=== PATIENT | female | born 1975 | race African-American/Black ===

== ENCOUNTER 2016-09-23 11:33 | Emergency (ER) | payer BC, MEDICAID, OTHER ==
[~2016-09-23 11:33] MED LIST: IBUP200C PO; SERO200T PO; SERO400T PO; TENE1TAB PO; TRAZ50TA2 PO; VIST50CA PO; ZOLO100T PO; ZOLO50TA PO; no home medications
[2016-09-23] MEDS ORDERED: ONDANSETRON 4 MG ORAL DISINTEGRATING TAB (S0181) As Ordered ONE (11:56)
[2016-09-23] MEDS ORDERED: ACETAMINOPHEN 325 MG TAB As Ordered ONE (11:56)
--- NOTE | 2016-09-23 12:48 | EDDOCDS ---
Physician Documentation [facility] Name: Francine Zamora Age: 41 yrs Sex: Female : 1975 Arrival Date: 09/23/2016 Time: 11:33 Bed TR2 Private MD: KIRK ROBERTSON Disposition: 09/23/16 12:46 Patient has left against medical advice. - Patients states they are going to Home/Self Care. - Condition is Stable. Medication Reconciliation, Local Pharmacy Hours form. Follow up: Private Physician; When: As needed; Reason: Recheck today's complaints. Historical: - Allergies: no known allergies; - Home Meds: 1. none - PMHx: Anxiety; Bipolar disorder; Depression; - PSHx: Tubal ligation; left leg; eye surgery; - Immunization history: Last tetanus immunization: < 5 years ago. - Social history: Smoking status: Patient uses tobacco products, heavy tobacco smoker. No barriers to communication noted, The patient speaks fluent Kiswahili, Speaks appropriately for age. - Family history: Not pertinent. - : The pt / caregiver states he / she is not on anticoagulants. Home medication list is obtained from the patient. - Exposure Risk Screening:: None identified. 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 7 in. (170.18 cm); 11:34 Body Mass Index 31.32 (90.72 kg, 170.18 cm) elp Trauma Score (Adult): 11:40 Eye Response: spontaneous(1); Verbal Response: oriented(1); Motor Response: obeys mlb1 commands(2); Systolic BP: > 89 mm Hg(4); Respiratory Rate: 10 to 29 per min(4); Demetria Score: 15; Trauma Score: 12 MDM: 11:54 Acetaminophen Tablet 975 mg PO once ordered. ar2 11:54 Ondansetron ODT Oral Disintegrating Tablet 4 mg PO once ordered. ar2 11:55 CT Spine,Cervical W/o Contrast Ordered. EDMS 11:57 Financial registration complete. mm15 12:09 [facility] Payment Agreement was scanned into [employer] and attached to record. mm15 12:10 [facility] was scanned into [employer] and attached to record. mm15 Administered Medications: 11:58 Drug: Acetaminophen 975 mg [acetaminophen 325 mg tablet (3 tabs)] Route: PO; ck1 11:58 Drug: Ondansetron ODT 4 mg [ondansetron 4 mg disintegrating tablet (1 tabs)] Route: PO; ck1 Signatures: Dispatcher [employer] EDNicolas Constantino RN RN mlb1 Jenny Quevedo RN RN ck1 Lan Alarcon PA-C PA-C ar2 Mari Hernandez mm15 The chart was reviewed and I authenticate all verbal orders and agree with the evaluation and treatment provided.Attachments: 12:09 [facility] Payment Agreement mm15 MTDD
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
--- NOTE | 2016-09-25 13:47 | EDDOCDS ---
Physician Documentation [facility] Name: Francine Zamora Age: 41 yrs Sex: Female : 1975 Arrival Date: 09/23/2016 Time: 11:33 Bed TR2 Private MD: KIRK ROBERTSON Disposition: 09/23/16 12:46 Patient has left against medical advice. - Patients states they are going to Home/Self Care. - Condition is Stable. Medication Reconciliation, Local Pharmacy Hours form. Follow up: Private Physician; When: As needed; Reason: Recheck today's complaints. Historical: - Allergies: no known allergies; - Home Meds: 1. none - PMHx: Anxiety; Bipolar disorder; Depression; - PSHx: Tubal ligation; left leg; eye surgery; - Immunization history: Last tetanus immunization: < 5 years ago. - Social history: Smoking status: Patient uses tobacco products, heavy tobacco smoker. No barriers to communication noted, The patient speaks fluent Pashto, Speaks appropriately for age. - Family history: Not pertinent. - : The pt / caregiver states he / she is not on anticoagulants. Home medication list is obtained from the patient. - Exposure Risk Screening:: None identified. 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 7 in. (170.18 cm); 11:34 Body Mass Index 31.32 (90.72 kg, 170.18 cm) elp Trauma Score (Adult): 11:40 Eye Response: spontaneous(1); Verbal Response: oriented(1); Motor Response: obeys mlb1 commands(2); Systolic BP: > 89 mm Hg(4); Respiratory Rate: 10 to 29 per min(4); Demetria Score: 15; Trauma Score: 12 MDM: 11:54 Acetaminophen Tablet 975 mg PO once ordered. ar2 11:54 Ondansetron ODT Oral Disintegrating Tablet 4 mg PO once ordered. ar2 11:55 CT Spine,Cervical W/o Contrast Ordered. EDMS 11:57 Financial registration complete. mm15 12:09 [facility] Payment Agreement was scanned into MEDHOST and attached to record. mm15 12:10 [facility] was scanned into [employer] and attached to record. mm15 17:03 T-Sheet-- Draft Copy was scanned into [employer] and attached to record. klr 09/24 17:39 Refusal of Services was scanned into [employer] and attached to record. kf3 Administered Medications: 09/23 11:58 Drug: Acetaminophen 975 mg [acetaminophen 325 mg tablet (3 tabs)] Route: PO; ck1 11:58 Drug: Ondansetron ODT 4 mg [ondansetron 4 mg disintegrating tablet (1 tabs)] Route: PO; ck1 Signatures: Dispatcher [employer] EDMS Nicolas Cheema RN RN mlb1 Jenny Quevedo RN RN ck1 Alek Haider, Reg Reg kf3 Lan Alarcon PAYarelis PAYarelis ar2 Mari Hernandez mm15 Marcia Wilkerson klnash The chart was reviewed and I authenticate all verbal orders and agree with the evaluation and treatment provided.Attachments: 12:09 [facility] Payment Agreement mm15 17:03 T-Sheet-- Draft Copy klr Chart Complete MTDD
--- NOTE | 2016-09-25 13:47 | EDDOCDS ---
Physician Documentation [facility] Name: Francine Zamora Age: 41 yrs Sex: Female : 1975 Arrival Date: 09/23/2016 Time: 11:33 Bed TR2 Private MD: KIRK ROBERTSON Disposition: 09/23/16 12:46 Patient has left against medical advice. - Patients states they are going to Home/Self Care. - Condition is Stable. Medication Reconciliation, Local Pharmacy Hours form. Follow up: Private Physician; When: As needed; Reason: Recheck today's complaints. Historical: - Allergies: no known allergies; - Home Meds: 1. none - PMHx: Anxiety; Bipolar disorder; Depression; - PSHx: Tubal ligation; left leg; eye surgery; - Immunization history: Last tetanus immunization: < 5 years ago. - Social history: Smoking status: Patient uses tobacco products, heavy tobacco smoker. No barriers to communication noted, The patient speaks fluent Khmer, Speaks appropriately for age. - Family history: Not pertinent. - : The pt / caregiver states he / she is not on anticoagulants. Home medication list is obtained from the patient. - Exposure Risk Screening:: None identified. 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 7 in. (170.18 cm); 11:34 Body Mass Index 31.32 (90.72 kg, 170.18 cm) elp Trauma Score (Adult): 11:40 Eye Response: spontaneous(1); Verbal Response: oriented(1); Motor Response: obeys mlb1 commands(2); Systolic BP: > 89 mm Hg(4); Respiratory Rate: 10 to 29 per min(4); Demetria Score: 15; Trauma Score: 12 MDM: 11:54 Acetaminophen Tablet 975 mg PO once ordered. ar2 11:54 Ondansetron ODT Oral Disintegrating Tablet 4 mg PO once ordered. ar2 11:55 CT Spine,Cervical W/o Contrast Ordered. EDMS 11:57 Financial registration complete. mm15 12:09 [facility] Payment Agreement was scanned into MEDHOST and attached to record. mm15 12:10 [facility] [place] [facility] was scanned into [employer] and attached to record. mm15 17:03 T-Sheet-- Draft Copy was scanned into [employer] and attached to record. klr 09/24 17:39 Refusal of Services was scanned into [employer] and attached to record. kf3 Administered Medications: 09/23 11:58 Drug: Acetaminophen 975 mg [acetaminophen 325 mg tablet (3 tabs)] Route: PO; ck1 11:58 Drug: Ondansetron ODT 4 mg [ondansetron 4 mg disintegrating tablet (1 tabs)] Route: PO; ck1 Signatures: Dispatcher [employer] EDMS Nicolas Cheema RN RN mlb1 Jenny Quevedo RN RN ck1 Alek Haider, Reg Reg kf3 Lan Alarcon PAYarelis PAYarelis ar2 Mari Hernandez mm15 Marcia Wilkerson klnash The chart was reviewed and I authenticate all verbal orders and agree with the evaluation and treatment provided.Attachments: 12:09 [facility] Payment Agreement mm15 17:03 T-Sheet-- Draft Copy klr Chart Complete MTDD
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
== END 2016-09-23 12:46 | disposition left against medical advice (07) ==
LOC: M ED 11:33
DX: S19.9XXA Unspecified injury of neck, initial encounter (principal); V49.40XA Driver injured in collision with unspecified motor vehicles in traffic accident, initial encounter; Y92.410 Unspecified street and highway as the place of occurrence of the external cause; Y93.89 Activity, other specified; Y99.8 Other external cause status; F31.9 Bipolar disorder, unspecified; F17.210 Nicotine dependence, cigarettes, uncomplicated

== ENCOUNTER → 2017-08-16 | Outpatient (CLI) | payer OTHER ==
[2017-08-16 07:15] LABS: BASO % 0.3 % (0.0-1.0); EOS # 0.5 10^3/uL (0.0-0.50); EOS % 8.5 % (0.0-3.0); HEMATOCRIT 34.6 % (36.0-47.0); HEMOGLOBIN 11.2 g/dl (12.0-16.0); IMMATURE GRANULOCYTE % 0.3 % (0-0); LYMPH # 2.3 10^3/uL (1.5-4.5); LYMPH % 37.2 % (24.0-44.0); MEAN CORPUSCULAR HEMOGLOBIN 29.1 pg (27.0-33.0); MEAN CORPUSCULAR HGB CONC 32.4 g/dl (32.0-36.5); MEAN CORPUSCULAR VOLUME 89.9 fl (80.0-96.0); MONO # 0.4 10^3/uL (0.0-0.8); MONO % 5.9 % (0.0-5.0); NEUTROPHILS # 2.9 10^3/uL (1.8-7.7); NEUTROPHILS % 47.8 % (36.0-66.0); PLATELET COUNT, AUTOMATED 329 10^3/uL (150-450); RED BLOOD COUNT 3.85 10^6/uL (4.00-5.40); RED CELL DISTRIBUTION WIDTH 13.2 % (11.5-14.5); WHITE BLOOD COUNT 6.1 10^3/uL (4.0-10.0)
[2017-08-16 07:34] LABS: ESTIMATED AVERAGE GLUCOSE 108 MG/DL (60-110); HEMOGLOBIN A1c 5.4 %
[2017-08-16 07:48] LABS: ALBUMIN 3.6 GM/DL (3.2-5.2); ALBUMIN/GLOBULIN RATIO 1.03 (1.00-1.93); ALKALINE PHOSPHATASE 61 U/L (45-117); ALT/SGPT 14 U/L (12-78); ANION GAP 7 MEQ/L (8-16); AST/SGOT 13 U/L (7-37); BILIRUBIN,TOTAL 0.4 MG/DL (0.2-1.0); BLOOD UREA NITROGEN 12 MG/DL (7-18); CALCIUM LEVEL 8.8 MG/DL (8.5-10.1); CARBON DIOXIDE LEVEL 27 MEQ/L (21-32); CHLORIDE LEVEL 107 MEQ/L (98-107); CHOLESTEROL LEVEL 185 MG/DL (<200); CHOLESTEROL RISK RATIO 4.204 (<5); CREATININE FOR GFR 0.94 MG/DL (0.55-1.02); GLOMERULAR FILTRATION RATE > 60.0 (>58); GLUCOSE, FASTING 104 MG/DL (70-105); HDL CHOLESTEROL 44 MG/DL (>40); NON-HDL-C 141 MG/DL; POTASSIUM SERUM 4.7 MEQ/L (3.5-5.1); SODIUM LEVEL 141 MEQ/L (136-145); THYROID STIMULATING HORMONE 0.942 uIU/ML (0.358-3.740); TOTAL PROTEIN 7.1 GM/DL (6.4-8.2); TRIGLYCERIDES LEVEL 150 MG/DL (<150)
[2017-08-16 09:18] LABS: PROLACTIN 11.6 NG/ML
== END ==
LOC: M LAB 06:32
DX: Z13.9 Encounter for screening, unspecified (principal); N64.52 Nipple discharge
CPT/HCPCS: 84146

== ENCOUNTER → 2017-09-07 | Outpatient (CLI) | payer OTHER | LOC: M RAD 10:08 | DX: N64.52 Nipple discharge (principal); N64.4 Mastodynia | CPT/HCPCS: 77066 ==

== ENCOUNTER 2018-01-10 17:06 | Emergency (ER) | payer OTHER ==
[2018-01-10] MEDS: LORazepam 2 MG/ML VIAL (J2060) IV (17:50)
[2018-01-10] MEDS: NS 1,000 ML IV (17:50)
[2018-01-10 17:51] LABS: BASO % 0.2 % (0.0-1.0); EOS # 0.2 10^3/uL (0.0-0.50); EOS % 2.8 % (0.0-3.0); HEMATOCRIT 34.1 % (36.0-47.0); HEMOGLOBIN 11.2 g/dl (12.0-15.5); IMMATURE GRANULOCYTE % 0.3 % (0-3.0); LYMPH # 2.1 10^3/uL (1.5-4.5); LYMPH % 34.2 % (24.0-44.0); MEAN CORPUSCULAR HGB CONC 32.8 g/dl (32.0-36.5); MEAN CORPUSCULAR VOLUME 88.3 fl (80.0-96.0); MONO # 0.4 10^3/uL (0.0-0.8); MONO % 6.9 % (0.0-5.0); NEUTROPHILS # 3.4 10^3/uL (1.8-7.7); NEUTROPHILS % 55.6 % (36.0-66.0); PLATELET COUNT, AUTOMATED 295 10^3/uL (150-450); RED BLOOD COUNT 3.86 10^6/uL (4.00-5.40); RED CELL DISTRIBUTION WIDTH 13.2 % (11.5-14.5); WHITE BLOOD COUNT 6.1 10^3/uL (4.0-10.0)
[2018-01-10 18:06] LABS: INR 0.95; PROTHROMBIN TIME 12.8 SECONDS (12.4-14.5)
[2018-01-10 18:21] LABS: ALBUMIN 3.8 GM/DL (3.2-5.2); ALKALINE PHOSPHATASE 64 U/L (45-117); ALT/SGPT 18 U/L (12-78); ANION GAP 9 MEQ/L (8-16); AST/SGOT 16 U/L (7-37); BILIRUBIN,DIRECT 0.2 MG/DL (0.0-0.2); BILIRUBIN,TOTAL 0.6 MG/DL (0.2-1.0); BLOOD UREA NITROGEN 8 MG/DL (7-18); CALCIUM LEVEL 8.6 MG/DL (8.5-10.1); CARBON DIOXIDE LEVEL 22 MEQ/L (21-32); CHLORIDE LEVEL 107 MEQ/L (98-107); CK-MB VALUE MASS 1.3 NG/ML (<3.6); CPK CREATINE PHOSPHOKINASE 390 U/L (26-192); CREATININE FOR GFR 0.97 MG/DL (0.55-1.30); GLOMERULAR FILTRATION RATE > 60.0 (>58); GLUCOSE, FASTING 102 MG/DL (70-100); MB/CK RELATIVE INDEX 0.33 (< OR =4); POTASSIUM SERUM 3.6 MEQ/L (3.5-5.1); SODIUM LEVEL 138 MEQ/L (136-145); TOTAL PROTEIN 7.6 GM/DL (6.4-8.2); TROPONIN I < 0.02 NG/ML (< 0.10)
[2018-01-10 18:31] LABS: CONTROL LINE HCG INT CTR LINE PRESENT; HCG, SERUM QUALITATIVE NEGATIVE (NEGATIVE)
== END 2018-01-10 19:10 | disposition home or self-care (01) ==
LOC: M ED 17:06
DX: F41.9 Anxiety disorder, unspecified (principal); F45.8 Other somatoform disorders; Z79.899 Other long term (current) drug therapy; Z88.8 Allergy status to other drugs, medicaments and biological substances
CPT/HCPCS: J2060

== ENCOUNTER → 2018-03-23 | Outpatient (REF) | payer BC, MEDICAID ==
[2018-03-23 22:26] LABS: CHLAMYDIA DNA AMPLIFICATION NEGATIVE (NEGATIVE); GC DNA AMPLIFICATION NEGATIVE (NEGATIVE)
== END ==
LOC: M SFHCLERA 10:16
DX: R30.0 Dysuria (principal)
CPT/HCPCS: 87086

== ENCOUNTER → 2018-04-04 | Outpatient (REF) | payer OTHER, MEDICAID | LOC: M SFHCLERA 11:54 | DX: R30.0 Dysuria (principal) ==

== ENCOUNTER → 2018-06-13 | Outpatient (REF) | payer OTHER, MEDICAID ==
[2018-06-14 09:40] LABS: RUBELLA IgG QUALITATIVE IMMUNE (IMMUNE)
[2018-06-15 08:06] LABS: HEPATITIS A IgG TOTAL Negative (Negative); MUMPS VIRUS IgG ANTIBODY <9.0 AU/mL (Immune >10.9); RUBEOLA IgG ANTIBODY 63.1 AU/mL (Immune >29.9)
[2018-06-15 08:06] LABS: HERPES ZOSTER, VARICELLA IgG 2213 index (Immune >165)
== END ==
LOC: M LAB REF 16:46
DX: Z01.84 Encounter for antibody response examination (principal)

== ENCOUNTER → 2018-06-20 | Outpatient (REF) | payer OTHER, MEDICAID ==
[2018-06-21 11:12] LABS: HEPATITIS B SURFACE ANTIGEN NEGATIVE (NEGATIVE)
[2018-06-21 11:12] LABS: HEPATITIS B SURFACE ANTIBODY POSITIVE (POSITIVE)
== END ==
LOC: M LAB REF 16:54
DX: Z01.84 Encounter for antibody response examination (principal)
CPT/HCPCS: 86706

== ENCOUNTER → 2018-06-24 | Outpatient (REF) ==
[2018-06-27 00:07] LABS: QuantiFERON-TB Gold Plus Negative (Negative)
== END ==
LOC: M LAB 09:52
DX: Z00.00 Encounter for general adult medical examination without abnormal findings (principal)

== ENCOUNTER 2018-07-31 17:28 | Emergency (ER) | payer OTHER, MEDICAID ==
[2018-07-31 18:21] LABS: BASO % 0.2 % (0.0-1.0); EOS # 0.2 10^3/uL (0.0-0.50); EOS % 3.2 % (0.0-3.0); HEMATOCRIT 32.9 % (36.0-47.0); HEMOGLOBIN 10.6 g/dl (12.0-15.5); IMMATURE GRANULOCYTE % 0.2 % (0-3.0); LYMPH # 2.5 10^3/uL (1.5-4.5); LYMPH % 42.4 % (24.0-44.0); MEAN CORPUSCULAR HEMOGLOBIN 29.5 pg (27.0-33.0); MEAN CORPUSCULAR HGB CONC 32.2 g/dl (32.0-36.5); MEAN CORPUSCULAR VOLUME 91.6 fl (80.0-96.0); MONO # 0.3 10^3/uL (0.0-0.8); MONO % 4.5 % (0.0-5.0); NEUTROPHILS # 2.9 10^3/uL (1.8-7.7); NEUTROPHILS % 49.5 % (36.0-66.0); PLATELET COUNT, AUTOMATED 252 10^3/uL (150-450); RED BLOOD COUNT 3.59 10^6/uL (4.00-5.40); RED CELL DISTRIBUTION WIDTH 12.5 % (11.5-14.5); WHITE BLOOD COUNT 5.9 10^3/uL (4.0-10.0)
[2018-07-31 18:44] LABS: ERYTHROCYTE SEDIMENTATION RATE 31 mm/hr (0-20)
[2018-07-31 18:51] LABS: ANION GAP 5 MEQ/L (8-16); BLOOD UREA NITROGEN 9 MG/DL (7-18); C REACTIVE PROTEIN QUANTITATIV < 0.30 MG/DL (0.00-0.30); CALCIUM LEVEL 8.5 MG/DL (8.5-10.1); CARBON DIOXIDE LEVEL 27 MEQ/L (21-32); CHLORIDE LEVEL 107 MEQ/L (98-107); CK-MB VALUE MASS < 1.0 NG/ML (<3.6); CPK CREATINE PHOSPHOKINASE 216 U/L (26-192); CREATININE FOR GFR 0.97 MG/DL (0.55-1.30); GLOMERULAR FILTRATION RATE > 60.0 (>58); GLUCOSE, FASTING 101 MG/DL (70-100); MB/CK RELATIVE INDEX 0.46 (< OR =4); POTASSIUM SERUM 3.9 MEQ/L (3.5-5.1); SODIUM LEVEL 139 MEQ/L (136-145); TROPONIN I < 0.02 NG/ML (< 0.10)
[2018-07-31] MEDS: CLINDAMYCIN 150 MG CAP PO (21:00)
== END 2018-07-31 21:15 | disposition home or self-care (01) ==
LOC: M ED 17:28
DX: N64.4 Mastodynia (principal); N64.52 Nipple discharge; R06.02 Shortness of breath; R11.0 Nausea; I10 Essential (primary) hypertension; F41.9 Anxiety disorder, unspecified; F31.9 Bipolar disorder, unspecified; F17.200 Nicotine dependence, unspecified, uncomplicated; Z88.8 Allergy status to other drugs, medicaments and biological substances; Z79.899 Other long term (current) drug therapy
CPT/HCPCS: 76642

== ENCOUNTER 2018-09-07 20:13 | Emergency (ER) | payer BC, OTHER ==
[~2018-09-07] VITALS: Ht 170.2 cm; Wt 99.5 kg
[~2018-09-07 20:13] MED LIST changes: +BENZ-18 PO; +CLEO300C2 PO; -IBUP200C PO; +IBUP200C25 PO; +KETO10TAB PO; +PROZ10CA7 PO; +TRAZ-160 PO; +TYLE325T5 PO
[2018-09-07 21:00] LABS: HEMATOCRIT 38.2 % (36.0-47.0); HEMOGLOBIN 12.2 g/dl (12.0-15.5); MEAN CORPUSCULAR HEMOGLOBIN 29.8 pg (27.0-33.0); MEAN CORPUSCULAR HGB CONC 31.9 g/dl (32.0-36.5); MEAN CORPUSCULAR VOLUME 93.2 fl (80.0-96.0); PLATELET COUNT, AUTOMATED 271 10^3/uL (150-450); WHITE BLOOD COUNT 4.8 10^3/uL (4.0-10.0)
[2018-09-07] MEDS ORDERED: ONDANSETRON 4 MG TAB (S0181) PO ONE (21:00)
[2018-09-07] MEDS ORDERED: ONDANSETRON 4 MG TAB (S0181) As Ordered ONE (21:04)
[2018-09-07 21:32] LABS: ACETAMINOPHEN LEVEL < 2.0 UG/ML (10.0-30.0); ALBUMIN 3.9 GM/DL (3.2-5.2); ALT/SGPT 13 U/L (12-78); BILIRUBIN,DIRECT 0.1 MG/DL (0.0-0.2); BILIRUBIN,TOTAL 0.5 MG/DL (0.2-1.0); BLOOD UREA NITROGEN 13 MG/DL (7-18); CALCIUM LEVEL 8.3 MG/DL (8.5-10.1); CARBON DIOXIDE LEVEL 21 MEQ/L (21-32); CHLORIDE LEVEL 108 MEQ/L (98-107); CREATININE FOR GFR 1.11 MG/DL (0.55-1.30); ETHYL ALCOHOL (ETHANOL) < 0.003 % (0.000-0.010); GLOMERULAR FILTRATION RATE > 60.0 (>58); GLUCOSE, FASTING 142 MG/DL (70-100); POTASSIUM SERUM 3.7 MEQ/L (3.5-5.1); SALICYLATE LEVEL < 1.7 MG/DL (5.0-30.0); SODIUM LEVEL 141 MEQ/L (136-145); TOTAL PROTEIN 7.6 GM/DL (6.4-8.2)
[2018-09-07 22:22] LABS: INR 1.01; PROTHROMBIN TIME 13.4 SECONDS (12.1-14.4)
[2018-09-07 22:23] LABS: APPEARANCE, URINE HAZY (CLEAR); BACTERIA, URINE AUTO NEGATIVE (NEGATIVE); BILIRUBIN, URINE AUTO NEGATIVE (NEGATIVE); BLOOD, URINE BLOOD NEGATIVE (NEGATIVE); COLOR, URINE YELLOW (YELLOW); GLUCOSE, URINE (UA) AUTO NEGATIVE (NEGATIVE); KETONE, URINE AUTO NEGATIVE (NEGATIVE); LEUKOCYTE ESTERASE, URINE AUTO NEGATIVE (NEGATIVE); MUCUS, URINE SMALL (NEGATIVE); NITRITE, URINE AUTO NEGATIVE (NEGATIVE); PARTIAL THROMBOPLASTIN TIME 28.6 SECONDS (25.4-37.6); PROTEIN, URINE AUTO 2+ mg/dL (NEGATIVE); RBC, URINE AUTO 7 /HPF (0-3); SPECIFIC GRAVITY URINE AUTO 1.026 (1.002-1.035); SQUAMOUS EPITHELIAL CELL UR AU 0 /HPF (0-6); WBC, URINE AUTO 2 /HPF (0-3)
[2018-09-07 22:28] LABS: AMPHETAMINES LEVEL URINE NEGATIVE (NEGATIVE); BARBITURATES URINE NEGATIVE (NEGATIVE); BENZODIAZEPINES URINE NEGATIVE (NEGATIVE); CANNABINOIDS URINE NEGATIVE (NEGATIVE); COCAINE METABOLITE URINE NEGATIVE (NEGATIVE); METHADONE URINE NEGATIVE (NEGATIVE); OPIATES URINE NEGATIVE (NEGATIVE); PHENCYCLIDINE URINE NEGATIVE (NEGATIVE)
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
[2018-09-07 22:40] LABS: HCG, SERUM QUALITATIVE NEGATIVE (NEGATIVE)
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
[2018-09-08] MEDS ORDERED: IBUPROFEN 800 MG TAB PO ONE (00:45)
[2018-09-08] MEDS ORDERED: traZODone 50 MG TAB PO ONE (02:15)
[2018-09-08] MEDS ORDERED: LORazepam 2 MG/ML VIAL (J2060) IM STA (02:37)
[2018-09-08 08:43] VITALS: BP 94/50
== END 2018-09-08 08:46 ==
LOC: M ED 20:13
DX: T14.91XA Suicide attempt, initial encounter (principal); V89.2XXA Person injured in unspecified motor-vehicle accident, traffic, initial encounter; Y92.410 Unspecified street and highway as the place of occurrence of the external cause; R45.851 Suicidal ideations; F31.9 Bipolar disorder, unspecified; Z88.8 Allergy status to other drugs, medicaments and biological substances; Z79.899 Other long term (current) drug therapy
CPT/HCPCS: 36415; 70450; 72125; 80048; 80076; 80307; 84443; 84703; 85027; 85610; 85730; 94760; 96372; 99285; G0480; J2060

== ENCOUNTER → 2018-10-15 | Outpatient (REF) | payer OTHER, MEDICAID ==
[2018-10-15 13:34] LABS: BASO % 0.3 % (0.0-1.0); EOS # 0.2 10^3/uL (0.0-0.50); EOS % 2.6 % (0.0-3.0); HEMATOCRIT 36.5 % (36.0-47.0); HEMOGLOBIN 11.6 g/dl (12.0-15.5); LYMPH # 2.2 10^3/uL (1.5-4.5); MEAN CORPUSCULAR HEMOGLOBIN 29.3 pg (27.0-33.0); MEAN CORPUSCULAR HGB CONC 31.8 g/dl (32.0-36.5); MEAN CORPUSCULAR VOLUME 92.2 fl (80.0-96.0); MONO # 0.3 10^3/uL (0.0-0.8); MONO % 5.5 % (0.0-5.0); NEUTROPHILS # 3.5 10^3/uL (1.8-7.7); NEUTROPHILS % 56.3 % (36.0-66.0); PLATELET COUNT, AUTOMATED 288 10^3/uL (150-450); RED BLOOD COUNT 3.96 10^6/uL (4.00-5.40); WHITE BLOOD COUNT 6.2 10^3/uL (4.0-10.0)
[2018-10-15 13:35] LABS: APPEARANCE, URINE CLEAR (CLEAR); BACTERIA, URINE AUTO NEGATIVE (NEGATIVE); BILIRUBIN, URINE AUTO NEGATIVE (NEGATIVE); BLOOD, URINE BLOOD NEGATIVE (NEGATIVE); COLOR, URINE YELLOW (YELLOW); GLUCOSE, URINE (UA) AUTO NEGATIVE (NEGATIVE); KETONE, URINE AUTO NEGATIVE (NEGATIVE); LEUKOCYTE ESTERASE, URINE AUTO NEGATIVE (NEGATIVE); MUCUS, URINE SMALL (NEGATIVE); NITRITE, URINE AUTO NEGATIVE (NEGATIVE); PROTEIN, URINE AUTO NEGATIVE (NEGATIVE); RBC, URINE AUTO 2 /HPF (0-3); SPECIFIC GRAVITY URINE AUTO 1.019 (1.002-1.035); SQUAMOUS EPITHELIAL CELL UR AU 1 /HPF (0-6); UROBILINOGEN, URINE AUTO 0.2 mg/dL (0.0-2.0); WBC, URINE AUTO 1 /HPF (0-3)
[2018-10-15 14:07] LABS: ALBUMIN 3.6 GM/DL (3.2-5.2); ALT/SGPT 14 U/L (12-78); BILIRUBIN,TOTAL 0.5 MG/DL (0.2-1.0); BLOOD UREA NITROGEN 10 MG/DL (7-18); CALCIUM LEVEL 8.3 MG/DL (8.5-10.1); CARBON DIOXIDE LEVEL 25 MEQ/L (21-32); CHLORIDE LEVEL 106 MEQ/L (98-107); CHOLESTEROL LEVEL 152 MG/DL (<200); CHOLESTEROL RISK RATIO 3.304 (<5); CREATININE FOR GFR 0.95 MG/DL (0.55-1.30); FREE T4 1.09 NG/DL (0.76-1.46); GLOMERULAR FILTRATION RATE > 60.0 (>58); GLUCOSE, FASTING 97 MG/DL (70-100); HDL CHOLESTEROL 46 MG/DL (>40); LDL CHOLESTEROL 87 MG/DL (<100); NON-HDL-C 106 MG/DL; POTASSIUM SERUM 4.3 MEQ/L (3.5-5.1); SODIUM LEVEL 138 MEQ/L (136-145); TOTAL 25(OH) VITAMIN D 9.2 NG/ML (30.0-100.0); TOTAL PROTEIN 7.1 GM/DL (6.4-8.2); TRIGLYCERIDES LEVEL 93 MG/DL (<150)
[2018-10-15 15:20] LABS: HEMOGLOBIN A1c 5.1 %
[2018-10-17 00:06] LABS: Lyme Disease IgG/IgM Antibodie <0.91 ISR (0.00-0.90); Lyme Disease IgM Ab Quantitati <0.80 index (0.00-0.79)
== END ==
LOC: M LAB REF 12:29
DX: Z00.01 Encounter for general adult medical examination with abnormal findings (principal); Z13.228 Encounter for screening for other metabolic disorders

== ENCOUNTER → 2018-10-31 | Outpatient (REF) | payer OTHER, MEDICAID | LOC: M LAB REF 15:06 | PROVIDERS: ATTEND Surgery | DX: D23.71 Other benign neoplasm of skin of right lower limb, including hip (principal) ==

== ENCOUNTER → 2018-11-12 | Outpatient (REF) | payer MEDICAID | LOC: M SFHCLERA 12:17 | PROVIDERS: ATTEND Physician Assistant | DX: J02.9 Acute pharyngitis, unspecified (principal) ==

== ENCOUNTER 2019-02-20 06:50 | Emergency (ER) | payer BC, MEDICAID ==
[~2019-02-20] VITALS: Ht 170.2 cm; Wt 97.5 kg
[~2019-02-20 06:50] MED LIST changes: -TRAZ-160 PO; +TRAZ-252 PO
[2019-02-20] MEDS ORDERED: ACET-683 PO (07:07)
[2019-02-20] MEDS ORDERED: IBUP1TAB6 PO (07:07)
[2019-02-20] MEDS ORDERED: ACETAMINOPHEN TAB 650MG DOSE (2X325MG) PO ONE (07:15)
[2019-02-20] MEDS ORDERED: dexameTHASONE 20 MG/5 ML VIAL (J1100) IM ONE (07:15)
[2019-02-20] MEDS ORDERED: NAPROXEN 250 MG TAB PO ONE (07:15)
[2019-02-20 08:03] VITALS: BP 121/76
== END 2019-02-20 08:07 | disposition home or self-care (01) ==
LOC: M ED 06:50
DX: J03.90 Acute tonsillitis, unspecified (principal); I10 Essential (primary) hypertension; F31.9 Bipolar disorder, unspecified
CPT/HCPCS: 87880; 96372; 99284; J1100

== ENCOUNTER → 2019-10-21 | Outpatient (REF) | payer BC ==
[~2019-10-21] MED LIST changes: +ACET-683 PO; +IBUP1TAB6 PO
[2019-10-21 13:43] LABS: BASO % 0.3 % (0.0-1.0); EOS # 0.1 10^3/uL (0.0-0.5); HEMATOCRIT 37.6 % (36.0-47.0); HEMOGLOBIN 11.9 g/dl (12.0-15.5); LYMPH # 2.4 10^3/uL (1.5-5.0); LYMPH % 36.7 % (24.0-44.0); MEAN CORPUSCULAR HEMOGLOBIN 29.2 pg (27.0-33.0); MEAN CORPUSCULAR HGB CONC 31.6 g/dl (32.0-36.5); MEAN CORPUSCULAR VOLUME 92.4 fl (80.0-96.0); MONO # 0.6 10^3/uL (0.0-0.8); MONO % 9.4 % (0.0-5.0); NEUTROPHILS # 3.4 10^3/uL (1.5-8.5); NEUTROPHILS % 51.4 % (36.0-66.0); PLATELET COUNT, AUTOMATED 298 10^3/uL (150-450); RED BLOOD COUNT 4.07 10^6/uL (4.00-5.40); WHITE BLOOD COUNT 6.5 10^3/uL (4.0-10.0)
[2019-10-21 14:06] LABS: ALBUMIN 3.7 GM/DL (3.2-5.2); ALT/SGPT 18 U/L (12-78); BILIRUBIN,TOTAL 0.6 MG/DL (0.2-1.0); BLOOD UREA NITROGEN 10 MG/DL (7-18); CALCIUM LEVEL 8.4 MG/DL (8.5-10.1); CARBON DIOXIDE LEVEL 25 MEQ/L (21-32); CHLORIDE LEVEL 105 MEQ/L (98-107); CHOLESTEROL LEVEL 194 MG/DL (<200); CREATININE FOR GFR 0.94 MG/DL (0.55-1.30); FOLATE 18.3 NG/ML; FREE T4 1.01 NG/DL (0.76-1.46); GLOMERULAR FILTRATION RATE > 60.0 (>58); GLUCOSE, FASTING 103 MG/DL (70-100); HDL CHOLESTEROL 53 MG/DL (>40); LDL CHOLESTEROL 110 MG/DL (<100); NON-HDL-C 141 MG/DL; POTASSIUM SERUM 3.9 MEQ/L (3.5-5.1); SODIUM LEVEL 136 MEQ/L (136-145); TOTAL 25(OH) VITAMIN D 9.5 NG/ML (30.0-100.0); TRIGLYCERIDES LEVEL 156 MG/DL (<150); VITAMIN B12 LEVEL 766 PG/ML
[2019-10-21 19:46] LABS: HEMOGLOBIN A1c 5.1 %
== END ==
LOC: M LAB REF 12:06
PROVIDERS: ATTEND Nurse Practitioner Family
DX: E55.9 Vitamin D deficiency, unspecified (principal); E66.9 Obesity, unspecified; M54.89 Other dorsalgia; F17.200 Nicotine dependence, unspecified, uncomplicated; I10 Essential (primary) hypertension

== ENCOUNTER → 2020-01-19 | Outpatient (REF) | payer BC ==
[2020-01-19 14:39] LABS: BLOOD UREA NITROGEN 7 MG/DL (7-18); CALCIUM LEVEL 8.8 MG/DL (8.5-10.1); CARBON DIOXIDE LEVEL 26 MEQ/L (21-32); CHLORIDE LEVEL 106 MEQ/L (98-107); CREATININE FOR GFR 0.95 MG/DL (0.55-1.30); GLOMERULAR FILTRATION RATE > 60.0 (>58); GLUCOSE, FASTING 93 MG/DL (70-100); POTASSIUM SERUM 4.2 MEQ/L (3.5-5.1); SODIUM LEVEL 137 MEQ/L (136-145)
[2020-01-19 14:40] LABS: PROLACTIN 16.5 NG/ML
== END ==
LOC: M PLALAB 09:40
PROVIDERS: ATTEND Surgery
DX: N64.4 Mastodynia (principal); N64.52 Nipple discharge

== ENCOUNTER → 2020-01-19 | Outpatient (CLI) | payer BC ==
--- NOTE | 2020-01-19 15:06 | REP ---
BILATERAL MAMMOGRAM WITH 3D TOMOSYNTHESIS AND DIAGNOSTIC MAMMOGRAM AND BILATERAL BREAST ULTRASOUND: HISTORY: Clear bilateral breast nipple discharge for 4 years. Pain left breast one to two months. No family history of breast cancer. Tyrer-Cuzick lifetime risk of breast cancer 10.3%. MLO and CC views of both breasts performed with 3D tomosynthesis. Comparison made with prior study of 09/07/2017. There is no significant change when compared to that prior study. No mass or clustered microcalcifications are seen bilaterally. Normal size axillary lymph nodes are present. Real-time sonographic evaluation of left breast performed in the left retroareolar region and in the regions of pain. In the right retroareolar region, there are mildly dilated ducts. In the left retroareolar region, there are dilated ducts containing some internal debris. In the region of pain in the left breast at 2 to 3-o'clock location approximately 10 cm from the nipple, there are two cystic structures with some minimal internal low-level echoes. These measure 5 x 4 x 7 mm and 6 x 4 x 5 mm. No sonographic abnormality is seen in the region of pain left breast 6-o'clock position. There is also no sonographic abnormality in the region of pain at 11-o'clock position. IMPRESSION: BIRADS 2: BI-RADS/ACR category 2 mammogram. Benign Findings. ACR 2 benign. Mammography demonstrates no abnormality. Bilateral breast ultrasound shows mildly dilated retroareolar ducts. In the region of pain left breast between 2 and 3-o'clock position, two benign-appearing cystic structures are seen. No suspicious sonographic abnormality is seen. Clinical correlation and followup recommended. Recommend followup mammogram in 1 year. This mammogram was interpreted with the aid of an FDA-approved computer-aided detection system. The patient states she/he had a clinical breast exam in 12/2019. The patient letter being requested is M2. Justyn Bowers
== END ==
LOC: M WHC 07:35
PROVIDERS: ATTEND Surgery
DX: N64.4 Mastodynia (principal); N64.52 Nipple discharge
CPT/HCPCS: 76642; 77066; G0279

== ENCOUNTER → 2020-01-21 | Outpatient (REF) | payer BC ==
[2020-01-21 13:11] LABS: BASO % 0.3 % (0.0-1.0); EOS # 0.1 10^3/uL (0.0-0.5); EOS % 1.9 % (0.0-3.0); HEMATOCRIT 32.5 % (36.0-47.0); HEMOGLOBIN 10.6 g/dl (12.0-15.5); LYMPH # 2.4 10^3/uL (1.5-5.0); LYMPH % 34.6 % (24.0-44.0); MEAN CORPUSCULAR HEMOGLOBIN 29.4 pg (27.0-33.0); MEAN CORPUSCULAR HGB CONC 32.6 g/dl (32.0-36.5); MEAN CORPUSCULAR VOLUME 90.3 fl (80.0-96.0); MONO # 0.6 10^3/uL (0.0-0.8); MONO % 8.1 % (0.0-5.0); NEUTROPHILS # 3.9 10^3/uL (1.5-8.5); NEUTROPHILS % 54.8 % (36.0-66.0); PLATELET COUNT, AUTOMATED 290 10^3/uL (150-450)
[2020-01-21 13:20] LABS: ALBUMIN 3.6 GM/DL (3.2-5.2); ALT/SGPT 17 U/L (12-78); BILIRUBIN,TOTAL 0.8 MG/DL (0.2-1.0); BLOOD UREA NITROGEN 8 MG/DL (7-18); CALCIUM LEVEL 8.9 MG/DL (8.5-10.1); CARBON DIOXIDE LEVEL 24 MEQ/L (21-32); CHLORIDE LEVEL 106 MEQ/L (98-107); CHOLESTEROL LEVEL 185 MG/DL (<200); CHOLESTEROL RISK RATIO 4.111 (<5); CREATININE FOR GFR 0.92 MG/DL (0.55-1.30); GLOMERULAR FILTRATION RATE > 60.0 (>58); GLUCOSE, FASTING 94 MG/DL (70-100); HDL CHOLESTEROL 45 MG/DL (>40); LDL CHOLESTEROL 119 MG/DL (<100); NON-HDL-C 140 MG/DL; SODIUM LEVEL 135 MEQ/L (136-145); TOTAL PROTEIN 7.4 GM/DL (6.4-8.2); TRIGLYCERIDES LEVEL 104 MG/DL (<150)
[2020-01-21 13:26] LABS: TOTAL 25(OH) VITAMIN D 47.2 NG/ML (30.0-100.0)
== END ==
LOC: M LAB REF 12:46
PROVIDERS: ATTEND Nurse Practitioner Family
DX: G47.00 Insomnia, unspecified (principal); E66.9 Obesity, unspecified; M54.2 Cervicalgia; Z13.9 Encounter for screening, unspecified; I10 Essential (primary) hypertension

== ENCOUNTER → 2020-02-04 | Outpatient (CLI) | payer BC ==
[~2020-02-04] MED LIST changes: +AMLO2.5T3 PO; +ASPI81TA26 PO; +CHLO125TA PO; +PROHANCE 279.3MG/ML 15ML VIAL As Ordered ONE; +PROHANCE 279.3MG/ML 5ML VIAL As Ordered ONE
--- NOTE | 2020-02-04 13:30 | REP ---
MRI BILATERAL BREASTS WITH AND WITHOUT CONTRAST: History of clear bilateral nipple discharge for years. Pain left breast 1-2 months. Comparison mammogram 01/19/2020. Comparison ultrasound 01/19/2020. TECHNIQUE: Multiple sequences obtained in the axial, coronal and sagittal planes prior to and following the intravenous administration of 19 mL ProHance. Images are evaluated on the [employer] software, including dynamic post-IV gadolinium, axial T1 fat sat images, subtraction images, color overlay images, CAD images and MIP reconstruction images. There is moderate diffuse fibroglandular tissue present bilaterally. There are several subcentimeter cystic structures scattered bilaterally. There is a 1 cm oval cyst in the inferomedial left breast. There is no axillary adenopathy seen, with normal size axillary lymph nodes seen bilaterally. There is moderate background parenchymal enhancement bilaterally. There is no suspicious enhancing mass or morphologic abnormality. IMPRESSION: BIRADS category 2 benign bilateral breast MRI. Multiple bilateral subcentimeter cystic structures with moderate fibroglandular tissue and moderate background parenchymal enhancement. No suspicious enhancing mass or morphologic abnormality. Electronically Signed by Amador Dodge MD 02/04/2020 07:35 P
== END ==
LOC: M RAD 09:47
PROVIDERS: ATTEND Surgery
DX: N64.52 Nipple discharge (principal); N60.11 Diffuse cystic mastopathy of right breast; N60.12 Diffuse cystic mastopathy of left breast
CPT/HCPCS: A9576; C8908

== ENCOUNTER → 2020-02-24 | Outpatient (REF) | payer BC ==
[~2020-02-24] MED LIST changes: -PROHANCE 279.3MG/ML 15ML VIAL As Ordered ONE; -PROHANCE 279.3MG/ML 5ML VIAL As Ordered ONE
[2020-02-24 19:32] LABS: APPEARANCE, URINE HAZY (CLEAR); BACTERIA, URINE AUTO NEGATIVE (NEGATIVE); BILIRUBIN, URINE AUTO NEGATIVE (NEGATIVE); BLOOD, URINE BLOOD 1+ (NEGATIVE); COLOR, URINE YELLOW (YELLOW); GLUCOSE, URINE (UA) AUTO NEGATIVE (NEGATIVE); KETONE, URINE AUTO NEGATIVE (NEGATIVE); LEUKOCYTE ESTERASE, URINE AUTO NEGATIVE (NEGATIVE); MUCUS, URINE SMALL (NEGATIVE); NITRITE, URINE AUTO NEGATIVE (NEGATIVE); PROTEIN, URINE AUTO NEGATIVE (NEGATIVE); RBC, URINE AUTO 4 /HPF (0-3); SPECIFIC GRAVITY URINE AUTO 1.023 (1.002-1.035); SQUAMOUS EPITHELIAL CELL UR AU 2 /HPF (0-6); UROBILINOGEN, URINE AUTO 0.2 mg/dL (0.0-2.0); WBC, URINE AUTO 2 /HPF (0-3)
[2020-02-24 19:58] LABS: BASO % 0.2 % (0.0-1.0); EOS % 0.2 % (0.0-3.0); HEMATOCRIT 33.1 % (36.0-47.0); HEMOGLOBIN 10.3 g/dl (12.0-15.5); LYMPH # 2.3 10^3/uL (1.5-5.0); LYMPH % 34.6 % (24.0-44.0); MEAN CORPUSCULAR HEMOGLOBIN 28.7 pg (27.0-33.0); MEAN CORPUSCULAR HGB CONC 31.1 g/dl (32.0-36.5); MEAN CORPUSCULAR VOLUME 92.2 fl (80.0-96.0); MONO # 0.3 10^3/uL (0.0-0.8); MONO % 4.8 % (0.0-5.0); NEUTROPHILS % 59.9 % (36.0-66.0); PLATELET COUNT, AUTOMATED 292 10^3/uL (150-450); RED BLOOD COUNT 3.59 10^6/uL (4.00-5.40); WHITE BLOOD COUNT 6.6 10^3/uL (4.0-10.0)
[2020-02-24 20:25] LABS: FOLATE 18.7 NG/ML
== END ==
LOC: M LAB REF 15:19
PROVIDERS: ATTEND Nurse Practitioner Family
DX: D64.9 Anemia, unspecified (principal)

== ENCOUNTER → 2020-03-15 | Outpatient (REF) | payer BC ==
[2020-04-26 11:25] LABS: BLOOD UREA NITROGEN 11 MG/DL (7-18); CARBON DIOXIDE LEVEL 28 MEQ/L (21-32); CHLORIDE LEVEL 103 MEQ/L (98-107); CREATININE FOR GFR 1.09 MG/DL (0.55-1.30); GLOMERULAR FILTRATION RATE > 60.0 (>58); GLUCOSE, FASTING 109 MG/DL (70-100); POTASSIUM SERUM 3.3 MEQ/L (3.5-5.1); SODIUM LEVEL 138 MEQ/L (136-145)
== END ==
LOC: M WUC 09:37
PROVIDERS: ATTEND Physician Assistant
DX: I10 Essential (primary) hypertension (principal)

== ENCOUNTER 2020-03-23 23:55 | Emergency (ER) | payer BC ==
[~2020-03-23 23:55] MED LIST changes: -AMLO2.5T3 PO; -ASPI81TA26 PO; -CHLO125TA PO; +ONDANSETRON 4MG/2ML VIAL ONE
[2020-03-24] MEDS ORDERED: KETOROLAC 30 MG/ML 1ML VIAL ONE (02:49)
[2020-03-24] MEDS ORDERED: GI COCKTAIL 50ML BTL(HYOSCYAMINE/MAALOX/LIDOCAINE VISCOUS)(1:3:1) ONE (05:03)
--- NOTE | 2020-04-26 15:50 | ECGEPIP ---
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
[2020-05-08 10:24] LABS: BASO % 0.3 % (0.0-1.0); EOS # 0.1 10^3/uL (0.0-0.5); HEMATOCRIT 36.5 % (36.0-47.0); HEMOGLOBIN 11.7 g/dl (12.0-15.5); LYMPH # 1.7 10^3/uL (1.5-5.0); LYMPH % 21.5 % (24.0-44.0); MEAN CORPUSCULAR HEMOGLOBIN 28.8 pg (27.0-33.0); MEAN CORPUSCULAR HGB CONC 32.1 g/dl (32.0-36.5); MEAN CORPUSCULAR VOLUME 89.9 fl (80.0-96.0); MONO # 0.3 10^3/uL (0.0-0.8); MONO % 3.2 % (0.0-5.0); NEUTROPHILS # 5.7 10^3/uL (1.5-8.5); NEUTROPHILS % 73.9 % (36.0-66.0); PLATELET COUNT, AUTOMATED 320 10^3/uL (150-450); RED BLOOD COUNT 4.06 10^6/uL (4.00-5.40); WHITE BLOOD COUNT 7.7 10^3/uL (4.0-10.0)
[2020-05-08 10:30] LABS: INR 0.99; PARTIAL THROMBOPLASTIN TIME 25.4 SECONDS (24.2-38.5); PROTHROMBIN TIME 13.3 SECONDS (12.5-14.3)
[2020-06-16 04:32] LABS: BLOOD UREA NITROGEN 12 MG/DL (7-18); CALCIUM LEVEL 9.3 MG/DL (8.5-10.1); CARBON DIOXIDE LEVEL 31 MEQ/L (21-32); CHLORIDE LEVEL 100 MEQ/L (98-107); CK-MB VALUE MASS < 1.0 NG/ML (<3.6); CPK CREATINE PHOSPHOKINASE 259 U/L (26-192); CREATININE FOR GFR 1.05 MG/DL (0.55-1.30); GLOMERULAR FILTRATION RATE > 60.0 (>58); GLUCOSE, FASTING 150 MG/DL (70-100); MB/CK RELATIVE INDEX 0.39 (< OR =4); POTASSIUM SERUM 3.2 MEQ/L (3.5-5.1); SODIUM LEVEL 136 MEQ/L (136-145); TROPONIN I < 0.02 NG/ML (< 0.10)
[2020-06-16 04:36] LABS: HCG, SERUM QUALITATIVE NEGATIVE (NEGATIVE)
== END 2020-03-24 06:20 | disposition home or self-care (01) ==
LOC: M ED 23:55
DX: K30 Functional dyspepsia (principal); I11.0 Hypertensive heart disease with heart failure; K21.9 Gastro-esophageal reflux disease without esophagitis; F17.210 Nicotine dependence, cigarettes, uncomplicated; Z79.899 Other long term (current) drug therapy; Z79.891 Long term (current) use of opiate analgesic
CPT/HCPCS: 71046; 80048; 82550; 82553; 84484; 84703; 85025; 85610; 85730; 93005; 96374; 96375; 99284; J1885; J2405

== ENCOUNTER → 2020-03-23 | Outpatient (REF) | payer BC ==
[2020-04-25 10:43] LABS: HEMOGLOBIN 9.9 g/dl (12.0-15.5); MEAN CORPUSCULAR HEMOGLOBIN 28.9 pg (27.0-33.0); MEAN CORPUSCULAR HGB CONC 31.9 g/dl (32.0-36.5); MEAN CORPUSCULAR VOLUME 90.6 fl (80.0-96.0); PLATELET COUNT, AUTOMATED 281 10^3/uL (150-450); RED BLOOD COUNT 3.42 10^6/uL (4.00-5.40); WHITE BLOOD COUNT 6.3 10^3/uL (4.0-10.0)
[2020-05-07 11:40] LABS: BLOOD UREA NITROGEN 8 MG/DL (7-18); CALCIUM LEVEL 8.9 MG/DL (8.5-10.1); CARBON DIOXIDE LEVEL 29 MEQ/L (21-32); CHLORIDE LEVEL 101 MEQ/L (98-107); GLOMERULAR FILTRATION RATE > 60.0 (>58); GLUCOSE, FASTING 84 MG/DL (70-100); POTASSIUM SERUM 3.5 MEQ/L (3.5-5.1); SODIUM LEVEL 136 MEQ/L (136-145)
== END ==
LOC: M LAB REF 16:02
PROVIDERS: ATTEND Physician Assistant
DX: R94.30 Abnormal result of cardiovascular function study, unspecified (principal)

== ENCOUNTER 2020-04-08 14:03 | Emergency (ER) | payer BC ==
[~2020-04-08] VITALS: Ht 170.2 cm; Wt 105.7 kg
[~2020-04-08 14:03] MED LIST changes: -ONDANSETRON 4MG/2ML VIAL ONE
[2020-04-08] MEDS ORDERED: TRAZ-252 PO (14:13)
[2020-04-08] MEDS ORDERED: ASPI81TA26 PO (14:13)
[2020-04-08] MEDS ORDERED: CHLO125TA PO (14:13)
[2020-04-08] MEDS ORDERED: AMLO2.5T3 PO (14:13)
[2020-04-08] MEDS ORDERED: NS 1,000 ML IV ONE (16:15)
[2020-04-08 17:12] LABS: BASO % 0.3 % (0.0-1.0); EOS # 0.1 10^3/uL (0.0-0.5); EOS % 0.8 % (0.0-3.0); HEMATOCRIT 30.5 % (36.0-47.0); HEMOGLOBIN 9.9 g/dl (12.0-15.5); LYMPH # 2.1 10^3/uL (1.5-5.0); LYMPH % 32.6 % (24.0-44.0); MEAN CORPUSCULAR HEMOGLOBIN 28.9 pg (27.0-33.0); MEAN CORPUSCULAR HGB CONC 32.5 g/dl (32.0-36.5); MEAN CORPUSCULAR VOLUME 89.2 fl (80.0-96.0); MONO # 0.3 10^3/uL (0.0-0.8); MONO % 5.1 % (0.0-5.0); NEUTROPHILS # 3.8 10^3/uL (1.5-8.5); NEUTROPHILS % 60.9 % (36.0-66.0); PLATELET COUNT, AUTOMATED 275 10^3/uL (150-450); RED BLOOD COUNT 3.42 10^6/uL (4.00-5.40); WHITE BLOOD COUNT 6.3 10^3/uL (4.0-10.0)
[2020-04-08 17:23] LABS: BLOOD UREA NITROGEN 8 MG/DL (7-18); CARBON DIOXIDE LEVEL 27 MEQ/L (21-32); CHLORIDE LEVEL 104 MEQ/L (98-107); CREATININE FOR GFR 0.95 MG/DL (0.55-1.30); GLOMERULAR FILTRATION RATE > 60.0 (>58); GLUCOSE, FASTING 93 MG/DL (70-100); MAGNESIUM LEVEL 1.8 MG/DL (1.8-2.4); POTASSIUM SERUM 3.5 MEQ/L (3.5-5.1); SODIUM LEVEL 138 MEQ/L (136-145)
[2020-04-08 18:15] VITALS: BP 137/85
== END 2020-04-08 18:17 | disposition home or self-care (01) ==
LOC: M ED 14:03
DX: R20.0 Anesthesia of skin (principal); R20.2 Paresthesia of skin; Z98.890 Other specified postprocedural states; Z98.61 Coronary angioplasty status; I10 Essential (primary) hypertension; F41.9 Anxiety disorder, unspecified; F32.9 Major depressive disorder, single episode, unspecified; Z88.8 Allergy status to other drugs, medicaments and biological substances

== ENCOUNTER → 2020-04-12 | Outpatient (REF) | payer BC ==
[~2020-04-12] MED LIST changes: +AMLO2.5T3 PO; +ASPI81TA26 PO; +CHLO125TA PO
[2020-04-12 18:14] LABS: BASO % 0.3 % (0.0-1.0); EOS # 0.1 10^3/uL (0.0-0.5); EOS % 1.4 % (0.0-3.0); HEMATOCRIT 34.3 % (36.0-47.0); HEMOGLOBIN 10.9 g/dl (12.0-15.5); LYMPH # 2.3 10^3/uL (1.5-5.0); LYMPH % 30.8 % (24.0-44.0); MEAN CORPUSCULAR HEMOGLOBIN 28.8 pg (27.0-33.0); MEAN CORPUSCULAR HGB CONC 31.8 g/dl (32.0-36.5); MEAN CORPUSCULAR VOLUME 90.7 fl (80.0-96.0); MONO # 0.5 10^3/uL (0.0-0.8); MONO % 6.5 % (0.0-5.0); NEUTROPHILS # 4.5 10^3/uL (1.5-8.5); NEUTROPHILS % 60.9 % (36.0-66.0); PLATELET COUNT, AUTOMATED 336 10^3/uL (150-450); RED BLOOD COUNT 3.78 10^6/uL (4.00-5.40); WHITE BLOOD COUNT 7.4 10^3/uL (4.0-10.0)
[2020-04-12 18:23] LABS: FERRITIN 36 NG/ML (8-252); IRON (FE) 104 UG/DL (50-170)
== END ==
LOC: M LAB REF 17:46
PROVIDERS: ATTEND Physician Assistant
DX: D50.8 Other iron deficiency anemias (principal)

== ENCOUNTER → 2020-05-24 | Outpatient (REF) | payer BC ==
[2020-05-24 13:45] LABS: BASO % 0.3 % (0.0-1.0); EOS # 0.3 10^3/uL (0.0-0.5); EOS % 5.4 % (0.0-3.0); HEMATOCRIT 34.7 % (36.0-47.0); HEMOGLOBIN 10.7 g/dl (12.0-15.5); LYMPH # 2.2 10^3/uL (1.5-5.0); LYMPH % 38.7 % (24.0-44.0); MEAN CORPUSCULAR HEMOGLOBIN 28.3 pg (27.0-33.0); MEAN CORPUSCULAR HGB CONC 30.8 g/dl (32.0-36.5); MEAN CORPUSCULAR VOLUME 91.8 fl (80.0-96.0); MONO # 0.3 10^3/uL (0.0-0.8); MONO % 5.1 % (0.0-5.0); NEUTROPHILS # 2.9 10^3/uL (1.5-8.5); NEUTROPHILS % 50.3 % (36.0-66.0); PLATELET COUNT, AUTOMATED 308 10^3/uL (150-450); RED BLOOD COUNT 3.78 10^6/uL (4.00-5.40); WHITE BLOOD COUNT 5.7 10^3/uL (4.0-10.0)
[2020-05-24 13:56] LABS: ALBUMIN 3.2 GM/DL (3.2-5.2); ALT/SGPT 15 U/L (12-78); BILIRUBIN,TOTAL 0.5 MG/DL (0.2-1.0); BLOOD UREA NITROGEN 8 MG/DL (7-18); CALCIUM LEVEL 8.6 MG/DL (8.5-10.1); CARBON DIOXIDE LEVEL 27 MEQ/L (21-32); CHLORIDE LEVEL 107 MEQ/L (98-107); CHOLESTEROL LEVEL 179 MG/DL (<200); CHOLESTEROL RISK RATIO 4.068 (<5); CREATININE FOR GFR 0.94 MG/DL (0.55-1.30); FERRITIN 39 NG/ML (8-252); GLOMERULAR FILTRATION RATE > 60.0 (>58); GLUCOSE, FASTING 99 MG/DL (70-100); HDL CHOLESTEROL 44 MG/DL (>40); IRON (FE) 80 UG/DL (50-170); LDL CHOLESTEROL 106 MG/DL (<100); NON-HDL-C 135 MG/DL; POTASSIUM SERUM 4.2 MEQ/L (3.5-5.1); SODIUM LEVEL 139 MEQ/L (136-145); TOTAL PROTEIN 6.6 GM/DL (6.4-8.2); TRIGLYCERIDES LEVEL 144 MG/DL (<150)
[2020-05-24 14:01] LABS: TOTAL 25(OH) VITAMIN D 25.9 NG/ML (30.0-100.0); VITAMIN B12 LEVEL 566 PG/ML (247-911)
== END ==
LOC: M LAB REF 12:42
PROVIDERS: ATTEND Nurse Practitioner Family
DX: D50.8 Other iron deficiency anemias (principal); D64.9 Anemia, unspecified; E55.9 Vitamin D deficiency, unspecified; F17.210 Nicotine dependence, cigarettes, uncomplicated; E66.09 Other obesity due to excess calories; Z13.9 Encounter for screening, unspecified; I10 Essential (primary) hypertension

== ENCOUNTER → 2020-07-15 | Outpatient (CLI) | payer BC | LOC: M LABSMTC 13:32 | PROVIDERS: ATTEND Family Medicine | DX: Z20.828 Contact with and (suspected) exposure to other viral communicable diseases (principal) ==

== ENCOUNTER → 2020-08-11 | Outpatient (CLI) | payer BC ==
[2020-08-11 16:30] LABS: BASO % 0.4 % (0.0-1.0); EOS # 0.1 10^3/uL (0.0-0.5); EOS % 2.4 % (0.0-3.0); HEMATOCRIT 36.9 % (36.0-47.0); HEMOGLOBIN 11.7 g/dl (12.0-15.5); LYMPH # 2.4 10^3/uL (1.5-5.0); LYMPH % 44.5 % (24.0-44.0); MEAN CORPUSCULAR HEMOGLOBIN 29.3 pg (27.0-33.0); MEAN CORPUSCULAR HGB CONC 31.7 g/dl (32.0-36.5); MEAN CORPUSCULAR VOLUME 92.5 fl (80.0-96.0); MONO # 0.4 10^3/uL (0.0-0.8); NEUTROPHILS # 2.4 10^3/uL (1.5-8.5); NEUTROPHILS % 45.5 % (36.0-66.0); PLATELET COUNT, AUTOMATED 300 10^3/uL (150-450); RED BLOOD COUNT 3.99 10^6/uL (4.00-5.40); WHITE BLOOD COUNT 5.3 10^3/uL (4.0-10.0)
[2020-08-11 16:52] LABS: ALBUMIN 3.7 GM/DL (3.2-5.2); ALT/SGPT 13 U/L (12-78); BILIRUBIN,TOTAL 0.8 MG/DL (0.2-1.0); BLOOD UREA NITROGEN 8 MG/DL (7-18); CALCIUM LEVEL 9.2 MG/DL (8.5-10.1); CARBON DIOXIDE LEVEL 27 MEQ/L (21-32); CHLORIDE LEVEL 104 MEQ/L (98-107); CREATININE FOR GFR 0.94 MG/DL (0.55-1.30); FERRITIN 37 NG/ML (8-252); GLOMERULAR FILTRATION RATE > 60.0 (>58); GLUCOSE, FASTING 88 MG/DL (70-100); IRON (FE) 59 UG/DL (50-170); SODIUM LEVEL 136 MEQ/L (136-145); TOTAL PROTEIN 7.7 GM/DL (6.4-8.2)
== END ==
LOC: M WUC 11:57
PROVIDERS: ATTEND Nurse Practitioner Family
DX: R19.5 Other fecal abnormalities (principal); D50.8 Other iron deficiency anemias; F17.210 Nicotine dependence, cigarettes, uncomplicated; I10 Essential (primary) hypertension; Z13.9 Encounter for screening, unspecified

== ENCOUNTER → 2020-08-11 | Outpatient (CLI) | payer BC ==
[2020-08-11 16:29] LABS: BASO % 0.4 % (0.0-1.0); EOS # 0.2 10^3/uL (0.0-0.5); EOS % 2.8 % (0.0-3.0); HEMATOCRIT 37.2 % (36.0-47.0); HEMOGLOBIN 11.8 g/dl (12.0-15.5); LYMPH # 2.4 10^3/uL (1.5-5.0); LYMPH % 44.8 % (24.0-44.0); MEAN CORPUSCULAR HEMOGLOBIN 29.4 pg (27.0-33.0); MEAN CORPUSCULAR HGB CONC 31.7 g/dl (32.0-36.5); MEAN CORPUSCULAR VOLUME 92.5 fl (80.0-96.0); MONO # 0.3 10^3/uL (0.0-0.8); MONO % 6.1 % (0.0-5.0); NEUTROPHILS # 2.5 10^3/uL (1.5-8.5); NEUTROPHILS % 45.5 % (36.0-66.0); PLATELET COUNT, AUTOMATED 298 10^3/uL (150-450); RED BLOOD COUNT 4.02 10^6/uL (4.00-5.40); WHITE BLOOD COUNT 5.4 10^3/uL (4.0-10.0)
[2020-08-11 16:49] LABS: HCG, SERUM QUALITATIVE NEGATIVE (NEGATIVE)
[2020-08-11 16:51] LABS: FREE T4 1.14 NG/DL (0.76-1.46)
[2020-08-11 16:56] LABS: FOLLICLE STIMULATING HORMONE 1.8 mIU/mL
== END ==
LOC: M WUC 11:54
PROVIDERS: ATTEND Advanced Practice Midwife
DX: N92.0 Excessive and frequent menstruation with regular cycle (principal)

== ENCOUNTER → 2020-08-20 | Outpatient (CLI) | payer BC ==
--- NOTE | 2020-08-20 09:38 | REP ---
INDICATION: HEAVY MENSES COMPARISON: 01/06/2011 TECHNIQUE: Transabdominal pelvic ultrasound followed by transvaginal examination for better evaluation of the endometrium and adnexa with color Doppler evaluation of the ovaries. FINDINGS: Bladder is under distended and incompletely evaluated. Heterogeneous anteverted uterus measures 12.7 x 6.5 x 8.0 cm. The endometrial complex measures 3.6 mm thickness. There is a 2.1 x 1.9 x 1.5 cm posterior subserosal fibroid. Right ovary is not visualized. Left ovary is normal in vascularity without torsion and measures 2.8 x 1.7 x 2.3 cm (RI 0.84). No pelvic fluid. IMPRESSION: 1. Uterus demonstrates 2.1 cm posterior subserosal fibroid. 2. Right ovary not visualized. Left ovary normal. <Electronically signed by Elvin March > 08/20/20 0934
== END ==
LOC: M RAD 08:26
PROVIDERS: ATTEND Advanced Practice Midwife
DX: N92.0 Excessive and frequent menstruation with regular cycle (principal)

== ENCOUNTER → 2020-08-31 | Outpatient (REF) | payer BC | LOC: M SFHCWAGY 13:16 | PROVIDERS: ATTEND Obstetrics & Gynecology | DX: Z12.4 Encounter for screening for malignant neoplasm of cervix (principal); Z01.419 Encounter for gynecological examination (general) (routine) without abnormal findings ==

== ENCOUNTER → 2020-09-03 | Outpatient (CLI) | payer BC ==
[2020-09-03 16:37] LABS: BASO % 0.3 % (0.0-1.0); EOS # 0.1 10^3/uL (0.0-0.5); EOS % 1.7 % (0.0-3.0); HEMATOCRIT 36.1 % (36.0-47.0); HEMOGLOBIN 11.5 g/dl (12.0-15.5); LYMPH # 2.4 10^3/uL (1.5-5.0); LYMPH % 40.7 % (24.0-44.0); MEAN CORPUSCULAR HEMOGLOBIN 29.4 pg (27.0-33.0); MEAN CORPUSCULAR HGB CONC 31.9 g/dl (32.0-36.5); MEAN CORPUSCULAR VOLUME 92.3 fl (80.0-96.0); MONO # 0.4 10^3/uL (0.0-0.8); MONO % 6.4 % (0.0-5.0); NEUTROPHILS % 50.7 % (36.0-66.0); PLATELET COUNT, AUTOMATED 294 10^3/uL (150-450); RED BLOOD COUNT 3.91 10^6/uL (4.00-5.40); WHITE BLOOD COUNT 5.9 10^3/uL (4.0-10.0)
[2020-09-03 16:50] LABS: GLOMERULAR FILTRATION RATE > 60.0 (>58); RHEUMATOID FACTOR QUANT < 10.0 IU/ML (<15.0)
[2020-09-03 17:43] LABS: ERYTHROCYTE SEDIMENTATION RATE 33 mm/hr (0-20)
[2020-09-06 16:09] LABS: ANTINUCLEAR ANTIBODIES DIRECT Negative (Negative); Lyme Disease IgG/IgM Antibodie <0.91 ISR (0.00-0.90); Lyme Disease IgM Ab Quantitati <0.80 index (0.00-0.79)
== END ==
LOC: M WUC 11:28
PROVIDERS: ATTEND Orthopaedic Surgery
DX: M25.562 Pain in left knee (principal)

== ENCOUNTER → 2020-09-27 | Outpatient (REF) | payer BC ==
[~2020-09-27] MED LIST changes: +IRON65TA2 PO; +NITR100C2 PO
[2020-09-27 19:40] LABS: APPEARANCE, URINE CLEAR (CLEAR); BACTERIA, URINE AUTO NEGATIVE (NEGATIVE); BILIRUBIN, URINE AUTO NEGATIVE (NEGATIVE); BLOOD, URINE BLOOD 3+ (NEGATIVE); COLOR, URINE AMBER (YELLOW); GLUCOSE, URINE (UA) AUTO NEGATIVE (NEGATIVE); KETONE, URINE AUTO NEGATIVE (NEGATIVE); LEUKOCYTE ESTERASE, URINE AUTO NEGATIVE (NEGATIVE); MUCUS, URINE SMALL (NEGATIVE); NITRITE, URINE AUTO POSITIVE (NEGATIVE); PROTEIN, URINE AUTO NEGATIVE (NEGATIVE); RBC, URINE AUTO 6 /HPF (0-3); SPECIFIC GRAVITY URINE AUTO 1.015 (1.002-1.035); SQUAMOUS EPITHELIAL CELL UR AU 2 /HPF (0-6); UROBILINOGEN, URINE AUTO 0.2 mg/dL (0.0-2.0); WBC, URINE AUTO 7 /HPF (0-3)
== END ==
LOC: M LAB REF 16:49
PROVIDERS: ATTEND Physician Assistant
DX: N39.0 Urinary tract infection, site not specified (principal)

== ENCOUNTER → 2020-10-03 | Outpatient (CLI) | payer BC | LOC: M LABSMTC 08:50 | PROVIDERS: ATTEND Anesthesiology | DX: Z01.818 Encounter for other preprocedural examination (principal); Z11.52 Encounter for screening for COVID-19 ==

== ENCOUNTER → 2020-10-07 | Outpatient (CLI) | payer BC | LOC: M LABSMTC 11:00 | PROVIDERS: ATTEND Anesthesiology | DX: Z01.812 Encounter for preprocedural laboratory examination (principal); Z20.822 Contact with and (suspected) exposure to COVID-19 ==

== ENCOUNTER → 2020-10-07 | Outpatient (REF) | payer BC ==
[~2020-10-07] MED LIST changes: +ROXI1TAB2 PO
[2020-10-07 18:49] LABS: BASO % 0.3 % (0.0-1.0); EOS # 0.1 10^3/uL (0.0-0.5); EOS % 1.3 % (0.0-3.0); HEMOGLOBIN 10.7 g/dl (12.0-15.5); LYMPH # 2.4 10^3/uL (1.5-5.0); LYMPH % 34.1 % (24.0-44.0); MEAN CORPUSCULAR HEMOGLOBIN 29.6 pg (27.0-33.0); MEAN CORPUSCULAR HGB CONC 31.5 g/dl (32.0-36.5); MEAN CORPUSCULAR VOLUME 93.9 fl (80.0-96.0); MONO # 0.4 10^3/uL (0.0-0.8); MONO % 6.3 % (2.0-8.0); NEUTROPHILS % 57.7 % (36.0-66.0); PLATELET COUNT, AUTOMATED 308 10^3/uL (150-450); RED BLOOD COUNT 3.62 10^6/uL (4.00-5.40)
[2020-10-07 19:14] LABS: ALBUMIN 3.5 GM/DL (3.2-5.2); ALT/SGPT 15 U/L (12-78); BILIRUBIN,TOTAL 0.5 MG/DL (0.2-1.0); BLOOD UREA NITROGEN 9 MG/DL (7-18); CALCIUM LEVEL 8.5 MG/DL (8.5-10.1); CARBON DIOXIDE LEVEL 28 MEQ/L (21-32); CHLORIDE LEVEL 107 MEQ/L (98-107); CREATININE FOR GFR 0.92 MG/DL (0.55-1.30); GLOMERULAR FILTRATION RATE > 60.0 (>58); GLUCOSE, FASTING 91 MG/DL (70-100); POTASSIUM SERUM 3.4 MEQ/L (3.5-5.1); SODIUM LEVEL 139 MEQ/L (136-145); TOTAL PROTEIN 7.1 GM/DL (6.4-8.2)
== END ==
LOC: M LAB REF 16:56
PROVIDERS: ATTEND Nurse Practitioner Family
DX: Z01.818 Encounter for other preprocedural examination (principal)

== ENCOUNTER 2020-10-08 10:36 | Day surgery (SDC) | payer BC ==
[~2020-10-08] VITALS: Ht 170.2 cm; Wt 100.2 kg
[~2020-10-08 10:36] MED LIST changes: +LIDOCAINE 2% 100MG/5ML SDV (FOR ANES.) As Ordered ONE; +NS 1,000 ML IV ONE; -ROXI1TAB2 PO; +propofoL 200 MG/20 ML VIAL As Ordered ONE
--- OUTSIDE RECORDS SUMMARY | 2020-10-08 10:43 | CCD | Continuity of Care Document ---
Author Organization Unknown Address Unknown Phone Unavailable Care Team Providers Care Financial Advisor Trainee Name Role Phone Roman Manuel DO AUTM [phone] JoseAlberta TIMA AUTM [phone] Elizabeth Sifuentes DO AUTM [phone] Anny Shearer MD AUTM [phone] Problems Active Problems Provider Date Dietary management surveillance Jason Harding MD Onset: 05/03/2017 Precordial pain Jason Harding MD Onset: 05/03/2017 Electrocardiogram abnormal Jason Harding MD Onset: 05/03 Obesity Jason Harding MD Onset: 05/03/2017 Tobacco user Jason Harding MD Onset: 05/03/2017 Essential hypertension [facility] Simmons Onset: 0 Abnormal results of cardiovascular function studies STEPHANE Simmons Onset: 04/07/2020 Social History Type Date Description Comments Sex Unknown ETOH Use Does not consume alcohol Tobacco Use Start: Unknown Patient is a current smoker, smo kes every day up to 1 pack every 2 weeks ; since age 17 Smoking Status Reviewed: 04/07/20 Patient is a current smoker, smokes every day up to 1 pack every 2 weeks ; since age 17 Exercise Type/Frequency Walks sporadically up an d down stairs at home Exercise Type/Frequency Does housework twice a w [place] Exercise Type/Frequency Walks 3 times a week Exercise Type/Frequency Does yardwork twice a we ek Exercise Limitations Joint Pain right elbow Exercise Limitations Back Pain Allergies, Adverse Reactions, Alerts Description No Known Drug Allergies Medications Active Medications SIG Qnty Indications Ordering Provide r Date Chlorthalidone 25mg Tablets 1/2 by mouth every day 45tabs I10 Jameson Rivera MD 02/25/2020 Trazodone HCL 100mg Tablets 1 by mouth every night at bedtime as needed Unknown 12/23/2018 Immunizations Description No Information Available Vital Signs Date Vital Result Comment 04/07/2020 8:17am Weight 232.00 lb Height 67 inches 5'7" BMI (Body Mass Index) 36.3 kg/m2 BP Systolic Sitting 124 mmHg large cuff, Ra BP Diastolic Sitting 68 mmHg large cuff, Ra 03/17/2020 8:02am Weight 231.00 lb Height 67 inches 5'7" BMI (Body Mass Index) 36.2 kg/m2 BP Systolic Sitting 126 mmHg large cuff, Ra BP Diastolic Sitting 78 mmHg large cuff, Ra Results Test Acquired Date Facility Test Result H/L Range Note CBC without Differential 09/03/2020 [facility] ([facility] - White Blood Count 5.9 4.0-10.0 Red Blood Count 3.91 Low 4.00-5.40 Platelets 294 150-450 Hemoglobin 11.5 Low 12.0-15.5 Hematocrit 36.1 36.0-47.0 CBC without Differential 03/24/2020 [facility] ([facility] - White Blood Count 7.72 4.0-10.0 Red Blood Count 4.06 4.0-5.40 Platelets 320 150-450 Hemoglobin 11.7 Low 14.0-18.0 Hematocrit 36.5 Low 42.0-52.0 BMP 03/23/2020 [facility] ([facility])- - Calcium Ser/Plasma Mass/Vol 8.9 Sodium 136 Carbon Dioxide Ser/Plasm 29 Chloride Serum/Plasma 101 Potassium 3.5 Glucose 84 70-100 Blood Urea Nitrogen 8 5-21 Creatinine 1.00 0.6-1.5 G F R >60 CBC No Diff 03/23/2020 [facility] ([facility])- - Misc -- CBC without Differential 03/23/2020 [facility] ([facility] - White Blood Count 6.29 4.0-10.0 Red Blood Count 3.42 Low 4.30-6.10 Platelets 281 150-450 Hemoglobin 9.9 Low 14.0-18.0 Hematocrit 31.0 Low 42.0-52.0 Complete Blood Count 03/23/2020 [facility] enter [phone] White Blood Count 6.3 10 Normal 4.0-10.0 Red Blood Count 3.42 10 Low 4.00-5.40 Hemoglobin 9.9 g/dL Low 12.0-15.5 Hematocrit 31.0 % Low 36.0-47.0 Mean Corpuscular Volume 90.6 fl Normal 80.0-96.0 Mean Corpuscular Hemoglobin 28.9 pg Normal 27.0-33.0 Mean Corpuscular HGB Conc 31.9 g/dL Low 32.0-36.5 Red Cell Distribution Width 13.3 % Normal 11.5-14.5 Platelet Count, Automated 281 10 Normal 150-450 Nucleated Red Blood Cell % 0.0 % Normal 0-0 Basic Metabolic Profile 03/23/2020 [facility] [phone] Glucose, Fasting 84 mg/dL Normal 70-100 Blood Urea Nitrogen 8 mg/dL Normal 7-18 Creatinine For GFR 1.00 mg/dL Normal 0.55-1.30 Glomerular Filtration Rate > 60.0 Normal >58 1 Sodium Level 136 mEq/L Normal 136-145 Potassium Serum 3.5 mEq/L Normal 3.5-5.1 Chloride Level 101 mEq/L Normal 98-107 Carbon Dioxide Level 29 mEq/L Normal 21-32 Anion Gap 6 mEq/L Low 8-16 Calcium Level 8.9 mg/dL Normal 8.5-10.1 1 Units are mL/min/1.73 m2 Chronic Kidney Disease Staging per NKF: Stage I & II GFR >=60 Normal to Mildly Decreased Stage III GFR 30-59 Moderately Decreased Stage IV GFR 15-29 Severely Decreased Stage V GFR <15 Very Little GFR Left ESRD GFR <15 on SALES ENGAGEMENT EXECUTIVE Procedures Description No Information Available Medical Devices Description No Information Available Encounters Type Date Location Provider Dx Diagnosis Office Visit 04/07/2020 8:00a Main Office [facility]PH[facility] Simmons R94.3 0 Abnormal result of cardiovascular function study, unsp I10 Essential (primary) hyperten tanmay Assessments Date Code Description Provider 04/07/2020 R94.30 Abnormal result of cardiovascula r function study, unspecified STEPHANE Simmons 04/07/2020 I10 Essential (primary) hypertension STEPHANE Simmons Plan of Treatment Future Appointment(s):* 09/28/2020 3:30 pm - STEPHANE Abdi at Main Office * 02/24/2021 11:15 am - STEPHANE Simmons at Main Office 04/07/2020 - STEPHANE Simmons* R94.30 Abnormal result of cardiovascular function study, unspecified * I10 Essential (primary) hypertension* Recommendations:* No medication changes were made today. * All * Follow up:* Follow up in 6 months. Functional Status Functional Condition Comment Date Status Independent with all ADL's Activ e Mental Status Description No Information Available Referrals Description No Information Available
--- OUTSIDE RECORDS SUMMARY | 2020-10-08 10:43 | CCD | Continuity of Care Document ---
Author Author Francine COLEMAN MD Organization Unknown Address [address] [place] [address] Phone [phone] Care Team Providers Care Linux Unix Administrator Name Role Phone Alberta Garcia ASSOCIATE DIRECTOR REGULATORY AFFAIRS AUTM Problems Active Problems Provider Date Pure hypercholesterolemia Omer Figueredo MD Onset: 019 Essential hypertension Omer Figueredo MD Onset: 06/30/2020 Social History Type Date Description Comments Sex Unknown ETOH Use Rarely consumes alcohol Tobacco Use Start: Unknown End: Unknown Patient is a former smoker Smoking Status Reviewed: 06/30/20 Patient is a former smoker Allergies, Adverse Reactions, Alerts Active Allergies Reaction Severity Comments Date NKDA 11/05/2018 Latex 11/05/2018 Medications Active Medications SIG Qnty Indications Ordering Provide r Date Hydrocodone-Acetaminophen 5-325mg Tablets 1-2 tabs by mouth every 4 to 6 hours as needed / post surgical pain(please do not fill until 08/17/20) 6tabs Omer Figueredo MD 2020 Trazodone HCL 100mg Tablets 1 tab by mouth daily at bedtime Unknown Immunizations Description No Information Available Vital Signs Date Vital Result Comment 09/17/2020 10:35am Body Temperature 96.2 F 09/03/2020 9:31am Body Temperature 97.1 F Height 67.5 inches 5'7.50" Weight 216.50 lb BMI (Body Mass Index) 33.4 kg/m2 Results Test Acquired Date Facility Test Result H/L Range Note Creatinine With GFR 09/03/2020 [facility] ntr [address] [place] [address] ([phone])- - Creatinine For GFR 1.00 mg/dL Normal 0.55-1.30 Glomerular Filtration Rate > 60.0 Normal >58 1 Laboratory test finding 09/03/2020 [facility] Centr [address] [place] [address] (212)- - Rheumatoid Factor Quant < 10.0 IU/mL Normal <15.0 2 CBC With Differential 09/03/2020 [facility] [address] [address] (528)- - White Blood Count 5.9 10 Normal 4.0-10.0 Red Blood Count 3.91 10 Low 4.00-5.40 Hemoglobin 11.5 g/dL Low 12.0-15.5 Hematocrit 36.1 % Normal 36.0-47.0 Mean Corpuscular Volume 92.3 fl Normal 80.0-96.0 Mean Corpuscular Hemoglobin 29.4 pg Normal 27.0-33.0 Mean Corpuscular HGB Conc 31.9 g/dL Low 32.0-36.5 Red Cell Distribution Width 13.0 % Normal 11.5-14.5 Platelet Count, Automated 294 10 Normal 150-450 Neutrophils % 50.7 % Normal 36.0-66.0 Lymph % 40.7 % Normal 24.0-44.0 [place] % 6.4 % High 0.0-5.0 Eos % 1.7 % Normal 0.0-3.0 Baso % 0.3 % Normal 0.0-1.0 Immature Granulocyte % 0.2 % Normal 0-3.0 Nucleated Red Blood Cell % 0.0 % Normal 0-0 Neutrophils # 3.0 10 Normal 1.5-8.5 Lymph # 2.4 10 Normal 1.5-5.0 [place] # 0.4 10 Normal 0.0-0.8 Eos # 0.1 10 Normal 0.0-0.5 Baso # 0.0 10 Normal 0.0-0.2 Laboratory test finding 09/03/2020 [facility] Cent[facility] [address] [place] [address] (840)- - Erythrocyte Sedimentation Rate 33 mm/hr High 0-20 Lyme Disease SCRN With Confirm 09/03/2020 [facility] [address] [address] (767)- - Lyme Disease IgG/IgM Antibodie <0.91 ISR Normal 0.00- 0.90 3 Lyme Disease IgM Ab Quantitati <0.80 index Normal 0.00-0.79 4 Antinuclear Antibodies 09/03/2020 [facility] [address] [place] [address] (315)- - Antinuclear Antibodies Direct Negative Normal Negati ve 5 Laboratory test finding 08/12/2020 In House Covid Rapid Testing NEGATIVE Order 07/02/2020 [facility] [address] [facility]. [address] [place] [address] Surgery <pending> 1 Units are mL/min/1.73 m2 Chronic Kidney Disease Staging per NKF: Stage I & II GFR >=60 Normal to Mildly Decreased Stage III GFR 30-59 Moderately Decreased Stage IV GFR 15-29 Severely Decreased Stage V GFR <15 Very Little GFR Left ESRD GFR <15 on LIQUOR ESTABLISHMENT MANAGER 2 note:<nlbl:demographic_chang ed> 3 Negative <0.91 Equivocal 0.91 - 1.09 Positive >1.09 4 Negative <0.80 Equivocal 0.80 - 1.19 Positive >1.19 . IgM levels may peak at 3-6 weeks post infection, then gradually decline. 5 Performed at: RN - [facility] [address] [id number] Volumetric Weigher: Keke Euceda MD, Phone: [phone] Procedures Date Code Description Status 09/09/2020 96438 MRI Lower Extremity Any Joint Co mpleted 09/09/2020 90414 MRI Lower Extremity Any Joint Co mpleted 09/03/2020 65749 X-Ray Knee Complete W/Obliques & Tunnel And/Or Standing Views Completed 08/17/2020 17151 Endoscopy Wrist W/Release Transv erse Carpal Ligament Completed Medical Devices Description No Information Available Encounters Type Date Location Provider Dx Diagnosis Office Visit 09/17/2020 10:30a Joel Coleman MD M25.561 Pain in right knee M25.562 Pain in left knee Office Visit 09/03/2020 9:30a Joel Coleman MD M25.562 Pain in left knee M25.561 Pain in right knee Office Visit 08/27/2020 9:45a Joel Figueredo MD Z48.811 Encntr for surgical aftcr fol surgery on the nervous sys Office Visit 06/30/2020 11:30a [place] Omer Figueredo MD G56.02 Carpal tunnel syndrome, left upper limb Assessments Date Code Description Provider 09/17/2020 M25.562 Pain in left knee Juan Antonio Coleman MD 09/17/2020 M25.561 Pain in right knee Juan Antonio cancino MD 09/17/2020 M25.561 Pain in right knee Juan Antonio cancino MD 09/17/2020 M25.562 Pain in left knee Juan Antonio Coleman MD 09/09/2020 M25.562 Pain in left knee Juan Antonio Coleman MD 09/09/2020 M25.561 Pain in right knee Juan Antonio cancino MD 09/09/2020 M25.561 Pain in right knee MRI 09/09/2020 M25.562 Pain in left knee MRI 09/03/2020 M25.562 Pain in left knee Juan Antonio Coleman MD 09/03/2020 M25.561 Pain in right knee Juan Antonio cancino MD 08/27/2020 Z48.811 Encounter for surgic al aftercare following surgery on the nervous system Omer Figueredo MD 08/17/2020 G56.02 Carpal tunnel syndrome, left upp er limb Omer Figueredo MD 08/12/2020 Z20.828 Contact with and (gonzales spected) exposure to other viral communicable diseases Omer Figueredo MD 08/12/2020 Z20.828 Contact with and (gonzales spected) exposure to other viral communicable diseases Lab 08/12/2020 Z01.818 Encounter for other preprocedura l examination Omer Figueredo MD 08/12/2020 Z01.818 Encounter for other preprocedura l examination Lab 08/12/2020 Z20.828 Contact w and exposure to oth vi ral communicable diseases Omer Figueredo MD 06/30/2020 G56.02 Carpal tunnel syndrome, left upp er limb Omer Figueredo MD 06/30/2020 G56.02 Carpal tunnel syndrome, left upp er limb Omer Figueredo MD Plan of Treatment Future Appointment(s):* 10/29/2020 1:00 pm - Juan Antonio Coleman MD at [place] 09/17/2020 - Juan Antonio Coleman MD* M25.561 Pain in right knee * M25.562 Pain in left knee* Follow up:* 6 weeks charlene knee chapis with sbf Functional Status Description No Information Available Mental Status Description No Information Available Referrals Refer to Dr Reason for Referral Status Appt Date Juan Antonio Coleman MD DME PER TRISHA AT [facility]) NO AUTH REQUIRED FOR RT AND LEFT FREE RUNNER KNEE BRACE(L1820) AND COVERED AT 70% TO МАРИЯ NT CALL REF #[id number] Created [facility] [address] [phone] Juan Antonio Coleman MD no prior authorization neede d for physical therapy services. based on medical necessity. allowed 50 visits per year - none used as of this date. $30 copay per visit. Call ref number [id number] - spoke with Yue. nlg Created [facility] [place] [address] [phone] Omer Figueredo MD MRI NO AUTH REQUIRED FOR CHARLENE ATERAL MRI OF KNEE (63953) TO MRI. DG Created [facility] [place] [address] [phone] Omer Figueredo MD SURGERY NO AUTH REQUIRED FOR CTR(53029) TO SURGERY NT Created [facility] [place] [address] [phone] Omer Figueredo MD DME APOLLO UNIVERSAL WRIST B RACE NO AUTH REQUIRED BASED ON MEDICAL NECESSITY. LS Created [facility] [place] [address] [phone]
--- OUTSIDE RECORDS SUMMARY | 2020-10-08 10:43 | CCD | Continuity of Care Document ---
Author Author Francine KERNS Organization Unknown Address [address] [place] [address] Phone [phone] Care Team Providers Care Hide Measuring Machine Operator Name Role Phone Alberta Garcia FISH CUTTING MACHINE OPERATOR AUTM Problems Active Problems Provider Date Pure [...] Available Vital Signs Date Vital Result Comment 09/03/2020 9:31am Body Temperature 97.1 F Height 67.5 inches 5'7.50" Weight 216.50 lb BMI (Body Mass Index) 33.4 kg/m2 06/04/2019 11:40am Body Temperature 97.5 F Results Test Acquired Date Facility Test Result H/L Range Note Creatinine With GFR 09/03/2020 [facility] ntr [address] [place] [address] [phone] - Creatinine For GFR 1.00 mg/dL Normal 0.55-1.30 Glomerular Filtration Rate > 60.0 Normal >58 1 Laboratory test finding 09/03/2020 [facility] l Centr [address] [place] [address] [phone])- - Rheumatoid Factor Quant < 10.0 IU/mL Normal <15.0 2 CBC With Differential 09/03/2020 [facility] [address] [address] (315)- - White Blood Count 5.9 10 Normal [...] 36.0-66.0 Lymph % 40.7 % Normal 24.0-44.0 [place] % 6.4 % High 0.0-5.0 Eos % 1.7 % Normal 0.0-3.0 Baso % 0.3 % Normal 0.0-1.0 Immature Granulocyte % 0.2 % Normal 0-3.0 Nucleated Red Blood Cell % 0.0 % Normal 0-0 Neutrophils # 3.0 10 Normal 1.5-8.5 Lymph # 2.4 10 Normal 1.5-5.0 [place] # 0.4 10 Normal 0.0-0.8 Eos # 0.1 10 Normal 0.0-0.5 Baso # 0.0 10 Normal 0.0-0.2 Laboratory test finding 09/03/2020 [facility] l Centr [address] [place] [address] [phone])- - Erythrocyte Sedimentation Rate 33 mm/hr High 0-20 Lyme Disease SCRN With Confirm 09/03/2020 [facility] [address] [address] (315)- - Lyme Disease IgG/IgM Antibodie <0.91 ISR Normal 0.00- 0.90 3 Lyme Disease IgM Ab Quantitati <0.80 index Normal 0.00-0.79 4 Antinuclear Antibodies 09/03/2020 [facility] [address] [place] [address] (315)- - Antinuclear Antibodies Direct Negative Normal Negati ve 5 Laboratory test finding 08/12/2020 In House Covid Rapid Testing NEGATIVE Order 07/02/2020 [facility] [address] [facility]. [address] [place] [address] Surgery <pending> 1 Units are mL/min/1.73 m2 Chronic Kidney Disease Staging per NKF: Stage I & II GFR >=60 Normal to Mildly Decreased Stage III GFR 30-59 Moderately Decreased Stage IV GFR 15-29 Severely Decreased Stage V GFR <15 Very Little GFR Left ESRD GFR <15 on SELF PROPELLED DREDGE OPERATOR 2 note:<nlbl:demographic_chang ed> 3 Negative <0.91 Equivocal 0.91 - 1.09 Positive >1.09 4 Negative <0.80 Equivocal 0.80 - 1.19 Positive >1.19 . IgM levels may peak at 3-6 weeks post infection, then gradually decline. 5 Performed at: RN - [facility] [address] [id number] Chief Learning Officer: Keke Euceda MD, Phone: [phone] Procedures Date Code Description Status 09/09/2020 58176 MRI Lower Extremity Any Joint Co mpleted 09/09/2020 85058 MRI Lower Extremity Any Joint Co mpleted 09/03/2020 40114 X-Ray Knee Complete W/Obliques & Tunnel And/Or Standing Views Completed 08/17/2020 00683 Endoscopy Wrist W/Release Transv erse Carpal Ligament Completed Medical Devices Description No Information Available Encounters Type Date Location Provider Dx Diagnosis Office Visit 09/03/2020 9:30a Joel Constantino MD M25.562 Pain in left knee M25.561 Pain in right knee Office Visit 08/27/2020 9:45a Joel Figueredo MD Z48.811 Encntr for surgical aftcr fol surgery on the nervous sys Office Visit 06/30/2020 11:30a Joel Figueredo MD G56.02 Carpal tunnel syndrome, left upper limb Assessments Date Code Description Provider 09/09/2020 M25.562 Pain in left knee Juan Antonio Constantino MD 09/09/2020 M25.561 Pain in right knee Juan Antonio cancino MD 09/09/2020 M25.561 Pain in right knee MRI 09/09/2020 M25.562 Pain in left knee MRI 09/03/2020 M25.562 Pain in left knee Juan Antonio Constantino MD 09/03/2020 M25.561 Pain in right knee [...] Z01.818 Encounter for other preprocedura l examination Oemr Figueredo MD 08/12/2020 Z01.818 Encounter for other preprocedura l examination Lab 08/12/2020 Z20.828 Contact w and exposure to oth vi ral communicable diseases Omer Figueredo MD 06/30/2020 G56.02 Carpal tunnel syndrome, left upp er limb Omer Figueredo MD 06/30/2020 G56.02 Carpal tunnel syndrome, left upp er limb Omer Figueredo MD Plan of Treatment Future Appointment(s):* 09/17/2020 10:30 am - Juan Antonio Constantino MD at [place] 09/03/2020 - Juan Antonio Constantino MD* M25.562 Pain in left knee* Follow up:* [facility] after mri of left and right knee with SBF for results * M25.561 Pain in right knee Functional Status Description No Information Available Mental Status Description No Information Available Referrals Refer to Dr Reason for Referral Status Appt Date Omer Figuereod MD MRI NO AUTH REQUIRED FOR CHARLENE ATERAL MRI OF KNEE (68098) TO MRI. DG Created [address] [facility], [address] [place] [address] [phone] Omer Figueerdo MD SURGERY NO AUTH REQUIRED FOR CTR(51314) TO SURGERY NT Created [facility], [address] [place] [address] [phone] Omer Figueredo MD DME APOLLO UNIVERSAL WRIST B RACE NO AUTH REQUIRED BASED ON MEDICAL NECESSITY. LS Created [address] [facility], [address] [place] [address] [phone]
--- OUTSIDE RECORDS SUMMARY | 2020-10-08 10:43 | CCD | Continuity of Care Document ---
Author Author Francine LANDEROS MD Organization Unknown Address [address] [place] [address] Phone [phone] Care Team Providers Care Hatch Supervisor Name Role Phone Alberta Garcia AUTM [phone] Problems Description No Information Available Social History Type Date Description Comments Sex Unknown ETOH Use Denies alcohol use Recreational Drug Use Denies Drug Use Tobacco Use Start: Unknown Patient is a current smoker, smo kes every day 2-4 CIGARETTES QD Exercise Type/Frequency Occasional Mild Exercise Allergies, Adverse Reactions, Alerts Active Allergies Reaction Severity Comments Date NKDA 11/27/2017 Latex RASH 10/31/2018 Medications Active Medications SIG Qnty Indications Ordering Provide r Date Suprep Bowel Prep Kit 17.5-3.13-1.6GM/177ML Solution as directed - see dr waller instructions 1Kit R19.5 Jason Landeros MD 09/23/2020 Milk Of Magnesia 7.75% Suspension take 45 milliliters by mouth about 1-2 days before colonoscopy prep 360ml R19.5 Jason Landeros MD 09/23/2020 Ibuprofen 200 200mg Tablets 1 tab by mouth prn Unknown Trazodone HCL 100mg Tablets 1 qd prn Unknown Seroquel 100mg Tablets 1 qd p rn Unknown Chlorthalidone 50mg Tablets 1/2 tab every day Unknown Ferrous Sulfate 325(65Fe) mg Table ts daily Unknown Immunizations Description No Information Available Vital Signs Date Vital Result Comment 09/23/2020 1:30pm BP Systolic 142 mmHg BP Diastolic 85 mmHg Height 67 inches 5'7" Weight 230.00 lb BMI (Body Mass Index) 36.0 kg/m2 [place] Body Weight 135 lb Weight 104.328 kg BSA (Body Surface Area) 2.15 m2 10/31/2018 9:22am BP Systolic 129 mmHg BP Diastolic 87 mmHg Height 67 inches 5'7" Weight 214.12 lb BMI (Body Mass Index) 33.5 kg/m2 [place] Body Weight 135 lb Weight 97.127 kg BSA (Body Surface Area) 2.08 m2 Results Description No Information Available Procedures Description No Information Available Medical Devices Description No Information Available Encounters Type Date Location Provider Dx Diagnosis Office Visit 09/23/2020 1:15p [facility] Jason Landeros MD R19.5 Other fecal abnormalities Assessments Date Code Description Provider 09/23/2020 R19.5 Other fecal abnormalities Jason Landeros MD Plan of Treatment 09/23/2020 - Jason Landeros MD* R19.5 Other fecal abnormalities * * New Medication:* Suprep Bowel Prep Kit 17.5-3.13-1.6 GM/177ML * Milk Of Magnesia 7.75 % * New Orders:* Colonoscopy, Ordered: 09/23/20 * Comments:* positive FIT test. * Recommendations:* Colonoscopy Functional Status Description No Information Available Mental Status Description No Information Available Referrals Refer to Reason for Referral Status Appt Date Jason Landeros MD iron deficiency anemia Scheduled 2020 [facility], Gastroenterology [address] [place] [address], [place] [address] [phone]
--- OUTSIDE RECORDS SUMMARY | 2020-10-08 10:43 | CCD | Continuity of Care Document ---
Author Author Francine COLEMAN MD Organization Unknown Address [address] [place] [address] Phone [phone] Care Team Providers Care Tar Heater Name Role Phone Alberta Garcia REGIONAL OFFICE COORDINATOR AUTM [phone] Problems Active Problems Provider Date Pure hypercholesterolemia [...] H/L Range Note Creatinine With GFR 09/03/2020 [facility] ntr [address] [place] [address] [phone] - Creatinine For GFR 1.00 mg/dL Normal 0.55-1.30 Glomerular Filtration Rate > 60.0 Normal >58 1 Laboratory test finding 09/03/2020 [facility] l Centr [address] [place] [address] [phone])- - Rheumatoid Factor Quant < 10.0 IU/mL Normal <15.0 2 CBC With Differential 09/03/2020 [facility] [address] [address] (603)- - White Blood Count 5.9 10 Normal [...] 36.0-66.0 Lymph % 40.7 % Normal 24.0-44.0 [place] % 6.4 % High 0.0-5.0 Eos % 1.7 % Normal 0.0-3.0 Baso % 0.3 % Normal 0.0-1.0 Immature Granulocyte % 0.2 % Normal 0-3.0 Nucleated Red Blood Cell % 0.0 % Normal 0-0 Neutrophils # 3.0 10 Normal 1.5-8.5 Lymph # 2.4 10 Normal 1.5-5.0 [place] # 0.4 10 Normal 0.0-0.8 Eos # 0.1 10 Normal 0.0-0.5 Baso # 0.0 10 Normal 0.0-0.2 Laboratory test finding 09/03/2020 [facility] l Centr [address] [place] [address] [phone] - Erythrocyte Sedimentation Rate 33 mm/hr High 0-20 Lyme Disease SCRN With Confirm 09/03/2020 [facility] [address] [address] (183)- - Lyme Disease IgG/IgM Antibodie <0.91 ISR Normal 0.00- 0.90 3 Lyme Disease IgM Ab Quantitati <0.80 index Normal 0.00-0.79 4 Antinuclear Antibodies 09/03/2020 [facility] [address] [place] [address] (315)- - Antinuclear Antibodies Direct Negative Normal Negati ve 5 Laboratory test finding 08/12/2020 In House Covid Rapid Testing NEGATIVE Order 07/02/2020 [facility] [address] [facility]. [address] [place] [address] Surgery <pending> 1 Units are mL/min/1.73 m2 Chronic Kidney Disease Staging per NKF: Stage I & II GFR >=60 Normal to Mildly Decreased Stage III GFR 30-59 Moderately Decreased Stage IV GFR 15-29 Severely Decreased Stage V GFR <15 Very Little GFR Left ESRD GFR <15 on 911 OPERATOR 2 note:<nlbl:demographic_chang ed> 3 Negative <0.91 Equivocal 0.91 - 1.09 Positive >1.09 4 Negative <0.80 Equivocal 0.80 - 1.19 Positive >1.19 . IgM levels may peak at 3-6 weeks post infection, then gradually decline. 5 Performed at: RN - [facility] [address] [id number] Academic Coach: Keke Euceda MD, Phone: [phone] Procedures Date Code Description Status 09/09/2020 19757 MRI Lower Extremity Any Joint Co mpleted 09/09/2020 51934 MRI Lower Extremity Any Joint Co mpleted 09/03/2020 45420 X-Ray Knee Complete W/Obliques & Tunnel And/Or Standing Views Completed 08/17/2020 48644 Endoscopy Wrist W/Release Transv erse Carpal Ligament [...] the nervous sys Office Visit 06/30/2020 11:30a [place] Omer Figueredo MD G56.02 Carpal tunnel syndrome, [...] pm - Juan Antonio Coleman MD at [place] 09/17/2020 - Juan Antonio Coleman MD* M25.561 [...] AT 70% TO МАРИЯ NT CALL REF #[id number] Created [facility] [address] [phone] Juan Antonio Coleman MD no prior authorization neede d for physical therapy services. based on medical necessity. allowed 50 visits per year - none used as of this date. $30 copay per visit. Call ref number [id number] - spoke with Yue. nlg Created [place] [address] [phone] Omer Figueredo MD MRI NO AUTH REQUIRED FOR CHARLENE ATERAL MRI OF KNEE (82312) TO MRI. DG [place] [address] [phone] Omer Figueredo MD SURGERY NO AUTH REQUIRED FOR CTR(11689) TO SURGERY NT [place] [address] [phone] Omer Figueredo MD DME APOLLO UNIVERSAL WRIST B RACE NO AUTH REQUIRED BASED ON MEDICAL NECESSITY. LS Created [place] [address] [phone]
--- OUTSIDE RECORDS SUMMARY | 2020-10-08 10:43 | CCD | Continuity of Care Document ---
Author Author Francine KERNS Organization Unknown Address [address] [place] [address] Phone [phone] Care Team Providers Care Electrical Assembly Supervisor Name Role Phone Alberta Garcia LOCOMOTIVE PIPE FITTER AUTM Problems Active Problems Provider Date Pure [...] H/L Range Note Creatinine With GFR 09/03/2020 [facility] ntr [address] [place] [address] [phone] - Creatinine For GFR 1.00 mg/dL Normal 0.55-1.30 Glomerular Filtration Rate > 60.0 Normal >58 1 Laboratory test finding 09/03/2020 [facility] Cent[facility] [address] [place] [address] (101)- - Rheumatoid Factor Quant < 10.0 IU/mL Normal <15.0 2 CBC With Differential 09/03/2020 [facility] [address] [address] (315)- - White Blood Count 5.9 10 [...] 36.0-66.0 Lymph % 40.7 % Normal 24.0-44.0 [place] % 6.4 % High 0.0-5.0 Eos % 1.7 % Normal 0.0-3.0 Baso % 0.3 % Normal 0.0-1.0 Immature Granulocyte % 0.2 % Normal 0-3.0 Nucleated Red Blood Cell % 0.0 % Normal 0-0 Neutrophils # 3.0 10 Normal 1.5-8.5 Lymph # 2.4 10 Normal 1.5-5.0 [place] # 0.4 10 Normal 0.0-0.8 Eos # 0.1 10 Normal 0.0-0.5 Baso # 0.0 10 Normal 0.0-0.2 Laboratory test finding 09/03/2020 [facility] Cent[facility] [address] [place] [address] [phone])- - Erythrocyte Sedimentation Rate 33 mm/hr High 0-20 Lyme Disease SCRN With Confirm 09/03/2020 [facility] [address] [address] (315)- - Lyme Disease IgG/IgM Antibodie <0.91 ISR Normal 0.00- 0.90 3 Lyme Disease IgM Ab Quantitati <0.80 index Normal 0.00-0.79 4 Antinuclear Antibodies 09/03/2020 [facility] [address] [place] [address] (315)- - Antinuclear Antibodies Direct Negative Normal Negati ve 5 Laboratory test finding 08/12/2020 In House Covid Rapid Testing NEGATIVE Order 07/02/2020 [facility] [address] [facility]. [address] [place] [address] Surgery <pending> 1 Units are mL/min/1.73 m2 Chronic Kidney Disease Staging per NKF: Stage I & II GFR >=60 Normal to Mildly Decreased Stage III GFR 30-59 Moderately Decreased Stage IV GFR 15-29 Severely Decreased Stage V GFR <15 Very Little GFR Left ESRD GFR <15 on PIPE BOWL PAINT TRIMMER 2 note:<nlbl:demographic_chang ed> 3 Negative <0.91 Equivocal 0.91 - 1.09 Positive >1.09 4 Negative <0.80 Equivocal 0.80 - 1.19 Positive >1.19 . IgM levels may peak at 3-6 weeks post infection, then gradually decline. 5 Performed at: RN - [facility] [address] [id number] Human Resources Assistant Manager: Keke Euceda MD, Phone: [phone] Procedures Date Code Description Status 09/09/2020 83714 MRI Lower Extremity Any Joint Co mpleted 09/09/2020 85791 MRI Lower Extremity Any Joint Co mpleted 09/03/2020 83132 X-Ray Knee Complete W/Obliques & Tunnel And/Or Standing Views Completed 08/17/2020 50369 Endoscopy Wrist W/Release Transv erse Carpal Ligament [...] am - Juan Antonio Constantino MD at [place] 09/03/2020 - Juan Antonio Constantino MD* M25.562 Pain in left knee* Follow up:* [facility] after mri of left and right knee with SBF for results * M25.561 Pain in right knee Functional Status Description No Information Available Mental Status Description No Information Available Referrals Refer to Dr Reason for Referral Status Appt Date Omer Figueredo MD MRI NO AUTH REQUIRED FOR CHARLENE ATERAL MRI OF KNEE (19567) TO MRI. DG Created [address] [facility], [address] [place] [address] [phone] Omer Figueredo MD SURGERY NO AUTH REQUIRED FOR CTR(57723) TO SURGERY NT Created [facility], [address] [place] [address] [phone] Omer Figueredo MD DME APOLLO UNIVERSAL WRIST B RACE NO AUTH REQUIRED BASED ON MEDICAL NECESSITY. LS Created [address] [facility], [address] [place] [address] [phone]
--- OUTSIDE RECORDS SUMMARY | 2020-10-08 10:43 | CCD | Continuity of Care Document ---
Author Author Francine COLEMAN MD Organization Unknown Address [address] [place] [address] Phone [phone] Care Team Providers Care Inspector Toys Name Role Phone Alberta Garcia STRIP POLISHER AUTM Problems Active Problems Provider Date Pure [...] H/L Range Note Creatinine With GFR 09/03/2020 [facility] ntr [address] [place] [address] [phone] - Creatinine For GFR 1.00 mg/dL Normal 0.55-1.30 Glomerular Filtration Rate > 60.0 Normal >58 1 Laboratory test finding 09/03/2020 [facility] l Centr [address] [place] [address] [phone] - Rheumatoid Factor Quant < 10.0 IU/mL Normal <15.0 2 CBC With Differential 09/03/2020 [facility] [address] [address] [phone])- - White Blood Count 5.9 10 Normal [...] 36.0-66.0 Lymph % 40.7 % Normal 24.0-44.0 [place] % 6.4 % High 0.0-5.0 Eos % 1.7 % Normal 0.0-3.0 Baso % 0.3 % Normal 0.0-1.0 Immature Granulocyte % 0.2 % Normal 0-3.0 Nucleated Red Blood Cell % 0.0 % Normal 0-0 Neutrophils # 3.0 10 Normal 1.5-8.5 Lymph # 2.4 10 Normal 1.5-5.0 Moh[place] # 0.4 10 Normal 0.0-0.8 Eos # 0.1 10 Normal 0.0-0.5 Baso # 0.0 10 Normal 0.0-0.2 Laboratory test finding 09/03/2020 [facility] l Centr [address] [place] [address] [phone] - Erythrocyte Sedimentation Rate 33 mm/hr High 0-20 Lyme Disease SCRN With Confirm 09/03/2020 [facility] [address] [address] [phone] - Lyme Disease IgG/IgM Antibodie <0.91 ISR Normal 0.00- 0.90 3 Lyme Disease IgM Ab Quantitati <0.80 index Normal 0.00-0.79 4 Antinuclear Antibodies 09/03/2020 [facility] [address] [place] [address] [phone])- - Antinuclear Antibodies Direct Negative Normal Negati ve 5 Laboratory test finding 08/12/2020 In House Covid Rapid Testing NEGATIVE Order 07/02/2020 [facility] [address] [facility]. [address] [place] [address] Surgery <pending> 1 Units are mL/min/1.73 m2 Chronic Kidney Disease Staging per NKF: Stage I & II GFR >=60 Normal to Mildly Decreased Stage III GFR 30-59 Moderately Decreased Stage IV GFR 15-29 Severely Decreased Stage V GFR <15 Very Little GFR Left ESRD GFR <15 on ART CRITIC 2 note:<nlbl:demographic_chang ed> 3 Negative <0.91 Equivocal 0.91 - 1.09 Positive >1.09 4 Negative <0.80 Equivocal 0.80 - 1.19 Positive >1.19 . IgM levels may peak at 3-6 weeks post infection, then gradually decline. 5 Performed at: RN - [facility] [address] [id number] Bus And Trolley Inspecting Dispatcher: Keke Euceda MD, Phone: [phone] Procedures Date Code Description Status 09/09/2020 94366 MRI Lower Extremity Any Joint Co mpleted 09/09/2020 06518 MRI Lower Extremity Any Joint Co mpleted 09/03/2020 72160 X-Ray Knee Complete W/Obliques & Tunnel And/Or Standing Views Completed 08/17/2020 11167 Endoscopy Wrist W/Release Transv erse Carpal Ligament Completed Medical Devices Description No Information Available Encounters Type Date Location Provider Dx Diagnosis Office Visit 09/17/2020 10:30a Joel Coleman MD 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, right knee M94.262 Chondromalacia, left knee M23.221 Derang of post horn of media l mensc d/t old tear/inj, r knee Office Visit 09/03/2020 9:30a Joel Coleman MD M25.562 Pain in left knee M25.561 Pain in right knee Office Visit 08/27/2020 9:45a Hazel Greenlaureen Figuereod MD Z48.811 Encntr for surgical aftcr fol surgery on the nervous sys Office Visit 06/30/2020 11:30a [place] Greenlaureen Figueredo MD G56.02 Carpal tunnel syndrome, left upper limb Assessments Date Code Description Provider 09/17/2020 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, right knee Maik Coleman MD 09/17/2020 M94.262 Chondromalacia, left knee Juan Antonio Coleman MD 09/17/2020 M23.221 Derangement of poste rior horn of medial meniscus due to old tear or injury, right knee Juan Antonio Coleman MD 09/09/2020 M25.562 [...] limb Omer Figueredo MD Plan of Treatment 09/17/2020 - Juan Antonio Coleman MD* 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 DG Created [address] [place] [address] [phone] Omer Figueredo MD SURGERY NO AUTH REQUIRED FOR CTR(66305) TO SURGERY NT Created [address] [place] [address] [phone] Omer Figueredo MD DME APOLLO UNIVERSAL WRIST B RACE NO AUTH REQUIRED BASED ON MEDICAL NECESSITY. LS Created [address] [place] [address] [phone]
--- OUTSIDE RECORDS SUMMARY | 2020-10-08 10:43 | CCD | Continuity of Care Document ---
Author Author Francine COLEMAN MD Organization Unknown Address [address] [place] [address] Phone [phone] Care Team Providers Care Auto Body Estimator Name Role Phone Alberta Garcia SOFTWARE QUALITY ASSURANCE SPECIALIST AUTM [phone] Problems Active Problems Provider Date Pure [...] H/L Range Note Creatinine With GFR 09/03/2020 [facility] ntr [address] [place] [address] [phone] - Creatinine For GFR 1.00 mg/dL Normal 0.55-1.30 Glomerular Filtration Rate > 60.0 Normal >58 1 Laboratory test finding 09/03/2020 [facility] l Centr [address] [place] [address] [phone] - Rheumatoid Factor Quant < 10.0 IU/mL Normal <15.0 2 CBC With Differential 09/03/2020 [facility] [address] [address] (315)- - White Blood Count 5.9 10 [...] 36.0-66.0 Lymph % 40.7 % Normal 24.0-44.0 [place] % 6.4 % High 0.0-5.0 Eos % 1.7 % Normal 0.0-3.0 Baso % 0.3 % Normal 0.0-1.0 Immature Granulocyte % 0.2 % Normal 0-3.0 Nucleated Red Blood Cell % 0.0 % Normal 0-0 Neutrophils # 3.0 10 Normal 1.5-8.5 Lymph # 2.4 10 Normal 1.5-5.0 [place] # 0.4 10 Normal 0.0-0.8 Eos # 0.1 10 Normal 0.0-0.5 Baso # 0.0 10 Normal 0.0-0.2 Laboratory test finding 09/03/2020 [facility] Cent[facility] [address] [place] [address] [phone] - Erythrocyte Sedimentation Rate 33 mm/hr High 0-20 Lyme Disease SCRN With Confirm 09/03/2020 [facility] [address] [address] (315)- - Lyme Disease IgG/IgM Antibodie <0.91 ISR Normal 0.00- 0.90 3 Lyme Disease IgM Ab Quantitati <0.80 index Normal 0.00-0.79 4 Antinuclear Antibodies 09/03/2020 [facility] [address] [place] [address] (315)- - Antinuclear Antibodies Direct Negative Normal Negati ve 5 Laboratory test finding 08/12/2020 In House Covid Rapid Testing NEGATIVE Order 07/02/2020 [facility] [address] [facility]. [address] [place] [address] Surgery <pending> 1 Units are mL/min/1.73 m2 Chronic Kidney Disease Staging per NKF: Stage I & II GFR >=60 Normal to Mildly Decreased Stage III GFR 30-59 Moderately Decreased Stage IV GFR 15-29 Severely Decreased Stage V GFR <15 Very Little GFR Left ESRD GFR <15 on FREIGHT ENGINEER 2 note:<nlbl:demographic_chang ed> 3 Negative <0.91 Equivocal 0.91 - 1.09 Positive >1.09 4 Negative <0.80 Equivocal 0.80 - 1.19 Positive >1.19 . IgM levels may peak at 3-6 weeks post infection, then gradually decline. 5 Performed at: RN - [facility] [address] [id number] Rotary Soil Stabilizer Operator: Keke Euceda MD, Phone: [phone] Procedures Date Code Description Status 09/09/2020 86185 MRI Lower Extremity Any Joint Co mpleted 09/09/2020 58718 MRI Lower Extremity Any Joint Co mpleted 09/03/2020 26348 X-Ray Knee Complete W/Obliques & Tunnel And/Or Standing Views Completed 08/17/2020 95622 Endoscopy Wrist W/Release Transv erse Carpal Ligament Completed Medical Devices Description No Information Available Encounters Type Date Location Provider Dx Diagnosis Office Visit 09/03/2020 9:30a Joel Coleman MD M25.562 Pain in left knee M25.561 Pain in right knee Office Visit 08/27/2020 9:45a Joel Figueredo MD Z48.811 Encntr for surgical aftcr fol surgery on the nervous sys Office Visit 06/30/2020 11:30a Joel Figueredo MD G56.02 Carpal tunnel syndrome, left upper limb Assessments Date Code Description Provider 09/09/2020 M25.561 Pain in right knee MRI [...] Appointment(s):* 09/17/2020 10:30 am - Juan Antonio Coleman MD at [place] 09/03/2020 - Juan Antonio Coleman MD* M25.562 Pain in left knee* Follow up:* [facility] after mri of left and right knee with SBF for results * M25.561 Pain in right knee Functional Status Description No Information Available Mental Status Description No Information Available Referrals Refer to Dr Reason for Referral Status Appt Date Omer Figueredo MD MRI NO AUTH REQUIRED FOR CHARLENE ATERAL MRI OF KNEE ([id number]) TO MRI. DG Created [address] [facility], [address] [place] [address] [phone] Omer Figueredo MD SURGERY NO AUTH REQUIRED FOR CTR(06252) TO SURGERY NT Created [address] [facility], [address] [place] [id number] [phone] Omer Figueredo MD DME APOLLO UNIVERSAL WRIST B RACE NO AUTH REQUIRED BASED ON MEDICAL NECESSITY. LS Created [address] [facility], [address] [place] [address] [phone]
--- OUTSIDE RECORDS SUMMARY | 2020-10-08 10:43 | CCD | Continuity of Care Document ---
Author Author Francine FANG PA Organization Unknown Address [address] [place] [address], [place] [address] Phone [phone] Care Team Providers Care Starcher And Tenter Range Feeder Name Role Phone Roman Manuel DO AUTM [phone] Alberta Garcia AUTM [phone] Elizabeth Sifuentes DO AUTM [phone] Anny Shearer MD AUTM [phone] Problems Active Problems Provider Date Dietary management surveillance Jason Harding MD Onset: 05/03/2017 Precordial pain Jason Harding MD Onset: 05/03/2017 Electrocardiogram abnormal Jason Harding MD Onset: 05/03 Obesity Jason Harding MD Onset: 05/03/2017 Tobacco user Jason Harding MD Onset: 05/03/2017 Essential hypertension STEPHANE Simmons Onset: 0 Preoperative cardiovascular examination STEPHANE Abdi Onset: 09/28/2020 Abnormal results of cardiovascular function studies STEPHANE Simmons Onset: 04/07/2020 Social History Type Date Description Comments Sex Unknown ETOH Use Does not consume alcohol Tobacco Use Start: Unknown End: Unknown Patient is a former smoker up to 1 pack every 2 weeks ; since age 17; quit August 2020 Smoking Status Reviewed: 09/28/20 Patient is a former smoker up to 1 pack every 2 weeks ; since age 17; quit mid August 2020 Exercise Type/Frequency Walks sporadically up an d down stairs at home Exercise Type/Frequency Does housework twice a w [place] Exercise Type/Frequency Walks 3 times a week Exercise Type/Frequency Does yardwork twice a we ek Exercise Limitations Joint Pain right elbow and bilateral knees Exercise Limitations Back Pain Allergies, Adverse Reactions, Alerts Description No Known Drug Allergies Medications Active Medications SIG Qnty Indications Ordering Provide r Date Ibuprofen 200 200mg Tablets 2-3 pills 3-4 times daily as needed Unknown 09/27/2020 Iron 325(65Fe) mg Tablets 1 by mouth every day sometimes Unknown 09/27/2020 Chlorthalidone 25mg Tablets 1/2 by mouth every day 45tabs I10 Jameson Rivera MD 02/25/2020 Trazodone HCL 100mg Tablets 1 by mouth every night at bedtime as needed Unknown 12/23/2018 Immunizations Description No Information Available Vital Signs Date Vital Result Comment 09/28/2020 2:28pm Weight 225.00 lb Height 67 inches 5'7" BMI (Body Mass Index) 35.2 kg/m2 Heart Rate 82 /min BP Systolic Sitting 132 mmHg Ra, large cuff BP Diastolic Sitting 82 mmHg Ra, large cuff 04/07/2020 8:17am Weight 232.00 lb Height 67 inches 5'7" BMI (Body Mass Index) 36.3 kg/m2 BP Systolic Sitting 124 mmHg large cuff, Ra BP Diastolic Sitting 68 mmHg large cuff, Ra Results Test Acquired Date Facility Test Result H/L Range Note CBC without Differential 09/03/2020 [facility] (315)- - White Blood Count 5.9 4.0-10.0 Red Blood Count 3.91 Low 4.00-5.40 Platelets 294 150-450 Hemoglobin 11.5 Low 12.0-15.5 Hematocrit 36.1 36.0-47.0 Procedures Date Code Description Status 09/28/2020 37600 ECG 12-Lead Completed Medical Devices Description No Information Available Encounters Type Date Location Provider Dx Diagnosis Office Visit 09/28/2020 3:30p Main Office STEPHANE Abdi Z01 .810 Encounter for preprocedural cardiovascular examination I10 Essential (primary) hyperten tanmay R94.31 Abnormal electrocardiogram [ ECG] [EKG] E66.09 Other obesity due to excess calories Z71.3 Dietary counseling and surve illance Office Visit 04/07/2020 8:00a Main Office STEPHANE Simmons R94.3 0 Abnormal result of cardiovascular function study, unsp I10 Essential (primary) hyperten tanmay Assessments Date Code Description Provider 09/28/2020 Z01.810 Encounter for preprocedural card iovascular examination STEPHANE Abdi 09/28/2020 I10 Essential (primary) hypertension STEPHANE Abdi 09/28/2020 R94.31 Abnormal electrocardiogram [ECG] [EKG] STEPHANE Abdi 09/28/2020 E66.09 Other obesity due to excess berot reji STEPHANE Abdi 09/28/2020 Z71.3 Dietary counseling and surveilla nce STEPHANE Abdi 04/07/2020 R94.30 Abnormal result of cardiovascula r function study, unspecified STEPHANE Simmons 04/07/2020 I10 Essential (primary) hypertension STEPHANE Simmons Plan of Treatment Future Appointment(s):* 10/05/2021 1:30 pm - STEPHANE Abdi at Main Office 09/28/2020 - STEPHANE Abdi* Z01.810 Encounter for preprocedural cardiovascular examination* Recommendations:* Patient is cleared from a cardiac standpoint to undergo the scheduled colonoscopy, breast ductal excision, and hysterectomy. Colonoscopy: 10/08/[address] Gregorio at [facility] Hysterectomy: 11/17/[address] Katya Shaw at [facility] Breast Ductal Excision: Date TBA with Dr. Whittaker at [facility] * I10 Essential (primary) hypertension* Recommendations:* Continue chlorthalidone at the current dosage Advised patient to please monitor blood pressures at home and to alert our office for readings >140/>90 * R94.31 Abnormal electrocardiogram [ECG] [EKG]* Recommendations:* No further evaluation is needed at this time. * E66.09 Other obesity due to excess calories* Recommendations:* Recommended for patient to follow a more whole food diet. Advised patient to avoid overly processed foods and packaged foods. Advised patient to avoid sodas, juices and other liquid calories. Recommended at least 30 minutes of exercise 3 days a week. * Z71.3 Dietary counseling and surveillance* Recommendations:* Recommended for patient to follow a more whole food diet. Advised patient to avoid overly processed foods and packaged foods. Advised patient to avoid sodas, juices and other liquid calories. Recommended at least 30 minutes of exercise 3 days a week. * All * Follow up:* Follow up in 1 year Functional Status Functional Condition Comment Date Status Independent with all ADL's Activ e Mental Status Description No Information Available Referrals Description No Information Available
--- OUTSIDE RECORDS SUMMARY | 2020-10-08 10:44 | CCD | Continuity of Care Document ---
Author Author Francine COLEMAN MD Organization Unknown Address [address] [place] [address], [facility] [address] [place] [address] Phone [phone] Care Team Providers Care Online Retailer Name Role Phone Alberta Garcia EQUIPMENT OPERATOR WAREHOUSE AUTM Problems Active Problems Provider Date Pure [...] Date Facility Test Result H/L Range Note Laboratory test finding 08/12/2020 In House Covid Rapid Testing NEGATIVE Order 07/02/2020 [facility] [address] [facility] [address] [place] [address] Surgery <pending> Procedures Date Code Description Status 09/03/2020 27104 X-Ray Knee Complete W/Obliques & Tunnel And/Or Standing Views Completed 09/03/2020 17154 X-Ray Knee Complete W/Obliques & Tunnel And/Or Standing Views Completed 08/17/2020 76964 Endoscopy Wrist W/Release Transv erse Carpal Ligament Completed Medical Devices Description No Information Available Encounters Type Date Location Provider Dx Diagnosis Office Visit 09/03/2020 9:30a Joel Coleman MD M25.562 Pain in left knee M25.561 Pain in right knee Office Visit 06/30/2020 11:30a [place] Figueredo MD G56.02 Carpal tunnel syndrome, left upper limb Assessments Date Code Description Provider 09/03/2020 M25.562 Pain in left knee Juan [...] limb Omer Figueredo MD Plan of Treatment 09/03/2020 - Juan Antonio Coleman MD* M25.562 Pain in left knee* New Labs:* CBC With Differential, Ordered: 09/03/20 * Rheumatoid Factor Quant, Ordered: 09/03/20 * Antinuclear Antibodies, Ordered: 09/03/20 * Erythrocyte Sedimentation Rate, Ordered: 09/03/20 * Creatinine With GFR, Ordered: 09/03/20 * Lyme Disease SCRN With Confirm, Ordered: 09/03/20 * New Xrays:* MRI LT Knee, Ordered: 09/03/20 * Follow up:* [facility] after mri of left and right knee with SBF for results * M25.561 Pain in right knee* New Xrays:* MRI Right Knee, Ordered: 09/03/20 Functional Status Description No Information Available Mental Status Description No Information Available Referrals Refer to Dr Reason for Referral Status Appt Date Omre Figueredo MD SURGERY NO AUTH REQUIRED FOR CTR(62035) TO SURGERY NT Created [facility] [place] [address] [phone] Omer Figueredo MD DME APOLLO UNIVERSAL WRIST B RACE NO AUTH REQUIRED BASED ON MEDICAL NECESSITY. LS Created [facility], [address] [place] [address] [phone]
--- OUTSIDE RECORDS SUMMARY | 2020-10-08 10:44 | CCD | Continuity of Care Document ---
Author Author Francine COLEMAN MD Organization Unknown Address [address] [place] [address], [facility] [address] [place] [address] Phone [phone] Care Team Providers Care Logistics Project Manager Name Role Phone Alberta Garcia BEVEL OPERATOR AUTM Problems Active Problems Provider Date [...] 07/02/2020 [facility] [address] [facility] [address] [place] [address] Surgery <pending> Procedures Date Code Description Status 09/03/2020 30589 X-Ray Knee Complete W/Obliques & Tunnel And/Or Standing Views Completed 09/03/2020 46815 X-Ray Knee Complete W/Obliques & Tunnel And/Or Standing Views Completed 08/17/2020 89617 Endoscopy Wrist W/Release Transv erse Carpal Ligament Completed Medical Devices Description No Information Available Encounters Type Date Location Provider Dx Diagnosis Office Visit 09/03/2020 9:30a [place] Coleman MD M25.562 Pain in left knee M25.561 Pain in right knee Office Visit 06/30/2020 11:30a [place] Omer Figueredo MD G56.02 Carpal tunnel syndrome, [...] am - Juan Antonio Coleman MD at [place] * 09/09/2020 1:30 pm - MRI at [facility] * 09/09/2020 12:30 pm - MRI at [facility] 09/03/2020 - Juan Antonio Coleman MD* M25.562 Pain in left knee* New Xrays:* MRI LT Knee, Scheduled: 09/09/20 * Follow up:* [facility] after mri of left and right knee with SBF for results * M25.561 Pain in right knee* New Xrays:* MRI Right Knee, Scheduled: 09/09/20 Functional Status Description No Information Available Mental Status Description No Information Available Referrals Refer to Reason for Referral Status Appt Date Omer Figueredo MD SURGERY NO AUTH REQUIRED FOR CTR(32715) TO SURGERY NT Created [address] [place] [address] [phone] Omer Figueredo MD DME APOLLO UNIVERSAL WRIST B RACE NO AUTH REQUIRED BASED ON MEDICAL NECESSITY. LS Created [address] [place] [address], [place] [address] [phone]
--- OUTSIDE RECORDS SUMMARY | 2020-10-08 10:44 | CCD | Continuity of Care Document ---
Author Author Francine Gates Organization Unknown Address [address] [facility] [address] [place] [address] Phone [phone] Care Team Providers Care Toys Inspector Name Role Phone Matt Anderson MD AUTM [phone] Problems Active Problems Provider Date Pure hypercholesterolemia [...] SIG Qnty Indications Ordering Provide r Date Trazodone HCL 100mg Tablets 1 tab by mouth daily at bedtime Unknown Immunizations Description No Information Available Vital Signs Date Vital Result Comment 06/04/2019 11:40am Body Temperature 97.5 F 11/05/2018 8:46am Body Temperature 98.2 F Height 67 inches 5'7" Weight 213.50 lb BMI (Body Mass Index) 33.4 kg/m2 Results Test Acquired Date Facility Test Result H/L Range Note Laboratory test finding 08/12/2020 In House Covid Rapid Testing NEGATIVE Order 07/02/2020 [facility] [address] [facility] [address] [place] [address] Surgery <pending> Procedures Description No Information Available Medical Devices Description No Information Available Encounters Type Date Location Provider Dx Diagnosis Office Visit 06/30/2020 11:30a [place] Figueredo MD G56.02 Carpal tunnel syndrome, left upper limb Assessments Date Code Description Provider 08/12/2020 Z20.828 Contact with and (gonzales spected) [...] Figueredo MD Plan of Treatment Future Appointment(s):* 09/01/2020 9:30 am - Juan Antonio Constantino MD at [place] * 08/27/2020 9:45 am - Omer Figueredo MD at [place] * 08/17/2020 12:25 pm - [facility] 06[facility]30/2020 - Omer Figueredo MD* G56.02 Carpal tunnel syndrome, left upper limb * Follow up:* post op. Functional Status Description No Information Available Mental Status Description No Information Available Referrals Refer to Dr Reason for Referral Status Appt Date Omer Figueredo MD SURGERY NO AUTH REQUIRED FOR CTR(98646) TO SURGERY NT Created [address] [place] [address], [place] [address] [phone] Omer Figueredo MD DME APOLLO [employer]IVERS[employer] WRIST B RACE NO AUTH REQUIRED BASED ON MEDICAL NECESSITY. LS Created [address] [facility], [place] [address] [phone]
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
--- OUTSIDE RECORDS SUMMARY | 2020-10-08 10:44 | CCD | Continuity of Care Document ---
Author Author Francine COLEMAN MD Organization Unknown Address [address] [place] [address] Phone [phone] Care Team Providers Care Rural Carrier Associate Name Role Phone Alberta Garcia ESTHETICIAN FACIALIST AUTM [phone] Problems Active Problems Provider Date Pure [...] H/L Range Note Creatinine With GFR 09/03/2020 [facility] [address] [place] [address] [phone] - Creatinine For GFR 1.00 mg/dL Normal 0.55-1.30 Glomerular Filtration Rate > 60.0 Normal >58 1 Laboratory test finding 09/03/2020 [facility] [address] [place] [address] [phone] - Rheumatoid Factor Quant < 10.0 IU/mL Normal <15.0 2 CBC With Differential 09/03/2020 [facility] [address] [address] [phone] - White Blood Count 5.9 10 [...] 36.0-66.0 Lymph % 40.7 % Normal 24.0-44.0 [place] % 6.4 % High 0.0-5.0 Eos % 1.7 % Normal 0.0-3.0 Baso % 0.3 % Normal 0.0-1.0 Immature Granulocyte % 0.2 % Normal 0-3.0 Nucleated Red Blood Cell % 0.0 % Normal 0-0 Neutrophils # 3.0 10 Normal 1.5-8.5 Lymph # 2.4 10 Normal 1.5-5.0 [place] # 0.4 10 Normal 0.0-0.8 Eos # 0.1 10 Normal 0.0-0.5 Baso # 0.0 10 Normal 0.0-0.2 Laboratory test finding 09/03/2020 [facility] [address] [place] [address] [phone] - Erythrocyte Sedimentation Rate 33 mm/hr High 0-20 Lyme Disease SCRN With Confirm 09/03/2020 [facility] [address] [address] [phone] - Lyme Disease IgG/IgM Antibodie <0.91 ISR Normal 0.00- 0.90 3 Lyme Disease IgM Ab Quantitati <0.80 index Normal 0.00-0.79 4 Antinuclear Antibodies 09/03/2020 [facility] [address] [place] [address] [phone] - Antinuclear Antibodies Direct Negative Normal Negati ve 5 Laboratory test finding 08/12/2020 In House Covid Rapid Testing NEGATIVE Order 07/02/2020 [facility] [address] [facility] [place] [address] Surgery <pending> 1 Units are mL/min/1.73 m2 Chronic Kidney Disease Staging per NKF: Stage I & II GFR >=60 Normal to Mildly Decreased Stage III GFR 30-59 Moderately Decreased Stage IV GFR 15-29 Severely Decreased Stage V GFR <15 Very Little GFR Left ESRD GFR <15 on BILLIARD TABLE REPAIRER 2 note:<nlbl:demographic_chang ed> 3 Negative <0.91 Equivocal 0.91 - 1.09 Positive >1.09 4 Negative <0.80 Equivocal 0.80 - 1.19 Positive >1.19 . IgM levels may peak at 3-6 weeks post infection, then gradually decline. 5 Performed at: RN - [facility] [address] [id number] Professor Of Forestry: Keke Euceda MD, Phone: [phone] Procedures Date Code Description Status 09/03/2020 89780 X-Ray Knee Complete W/Obliques & Tunnel And/Or Standing Views Completed 09/03/2020 40075 X-Ray Knee Complete W/Obliques & Tunnel And/Or Standing Views Completed 08/17/2020 29568 Endoscopy Wrist W/Release Transv erse Carpal Ligament Completed Medical Devices Description No Information Available Encounters Type Date Location Provider Dx Diagnosis Office Visit 09/03/2020 9:30a Joel Coleman MD M25.562 Pain in left knee M25.561 Pain in right knee Office Visit 06/30/2020 11:30a Joel Figueredo MD [...] am - Juan Antonio Coleman MD at [place] * 09/09/2020 1:30 pm - MRI at [facility] * 09/09/2020 12:30 pm - MRI at [...] REQUIRED FOR CHARLENE ATERAL MRI OF KNEE (73820) TO MRI. DG Created [address] [place] [address], [address] [place] [address] [phone] Omer Figueredo MD SURGERY NO AUTH REQUIRED FOR CTR([id number]) TO SURGERY NT Created [address] [place] [address], [address] [place], [place] [id number] [phone] Omer Figueredo MD DME [employer] NO AUTH REQUIRED BASED ON MEDICAL NECESSITY. LS Created [facility], [place] [id number] [phone]
--- OUTSIDE RECORDS SUMMARY | 2020-10-08 10:44 | CCD | Continuity of Care Document ---
Author Author Francine ROSARIO MD Organization Unknown Address [address] [facility] [address] [place] [address] Phone [phone] Care Team Providers Care Checker Stocker Name Role Phone Matt Anderson MD AUTM [phone] Problems Active Problems Provider Date Pure hypercholesterolemia Omer Rosario MD Onset: 019 Essential hypertension Omer Rosario MD Onset: 06/30/2020 Social History Type Date [...] House Covid Rapid Testing NEGATIVE Order 07/02/2020 [facility] [address] [facility] [address] [place] [address] Surgery <pending> Procedures Description No Information Available Medical Devices Description No Information Available Encounters Type Date Location Provider Dx Diagnosis Office Visit 06/30/2020 11:30a [place] Rosario MD G56.02 Carpal tunnel syndrome, left upper limb Assessments Date Code Description Provider 08/12/2020 Z20.828 Contact with and (gonzales spected) exposure to other viral communicable diseases Omer Rosario MD 08/12/2020 Z20.828 Contact with and (gonzales spected) exposure to other viral communicable diseases Lab 08/12/2020 Z01.818 Encounter for other preprocedura l examination Omer Rosario MD 08/12/2020 Z01.818 Encounter for other preprocedura l examination Lab 08/12/2020 Z20.828 Contact w and exposure to oth vi ral communicable diseases Omer Rosario MD 06/30/2020 G56.02 Carpal tunnel syndrome, left upp er limb Omer Rosario MD 06/30/2020 G56.02 Carpal tunnel syndrome, left upp er limb Omer Rosario MD Plan of Treatment Future Appointment(s):* 09/01/2020 9:30 am - Juan Antonio Constantino MD at [place] * 08/27/2020 9:45 am - Omer Rosario MD at [place] * 08/17/2020 12:25 pm - Omer Rosario MD at [facility] 06/30/2020 - Omer Rosario MD* G56.02 Carpal tunnel syndrome, left upper limb * Follow up:* post op. Functional Status Description No Information Available Mental Status Description No Information Available Referrals Refer to Dr Reason for Referral Status Appt Date Omer Rosario MD SURGERY NO AUTH REQUIRED FOR CTR([id number]) TO SURGERY NT Created [facility], [place] [address] [phone] Omer Rosario MD DME [employer] NO AUTH REQUIRED BASED ON MEDICAL NECESSITY. LS Created [address] [facility], [place] [address] [phone]
--- OUTSIDE RECORDS SUMMARY | 2020-10-08 10:44 | CCD ---
Author Author [facility] Organization [facility] Address Unknown Phone Unavailable Care Team Providers Care Weights And Measures Inspector Name Role Phone Beronica Ahumada Unavailable PROBLEMS Type Condition ICD9-CM Code QGR03-FR Code Onset Dates Condition S tatus SNOMED Code Notes Problem Bipolar affective disorder in remission F31.70 Active 61757409 Problem Tobacco use disorder Z72.0 Active 02560382 Problem Obesity (BMI 30-39.9) E66.9 Active 978832740 Problem Dysmenorrhea N94.6 Active 377479206 Problem Menorrhagia N92.0 Active 301814244 Problem Generalized anxiety disorder F41.1 Active 218 34052 Problem History of hypertension Z86.79 Active 97248506 7 Problem New daily persistent headache G44.52 Active 23 6512378 Problem Smoker F17.200 Active 45955687 ALLERGIES No Known Allergies ENCOUNTERS from 1974 to 2020-08-18 Encounter Location Date Provider Diagnosis [facility] [address] [place] [phone] Jul, Beronica Ahumada IMMUNIZATIONS Vaccine Route Administration Date Status Pneumococcal Adult 0.5mL (Pneumovax 23) Unknown October Administered SOCIAL HISTORY Tobacco Use: Social History Observation Description Date Details (start date - stop date) Former Smoker Sex Assigned At : Social History Observation Description Sex Assigned At Unknown Alcohol Screening: Question Answer Notes Did you have a drink containing alcohol in the past year? No Points 0 Interpretation Negative Tobacco Use: Question Answer Notes Are you a: former smoker How long has it been since you last smoked? < 1 month REASON FOR REFERRAL No Information VITAL SIGNS No information MEDICATIONS Medication SIG (Take, Route, Frequency, Duration) Notes Start Da te End Date Status Ibuprofen 200 MG 4 tablet with food or milk as needed Ora lly Three times a day Active Iron (Ferrous Sulfate) 325 (65 Fe) MG 1 tablet Orally Once a day Active Chlorthalidone 25 MG 1 tablet in the morning with food Orally Once a day Active Amlodipine Besylate 5 MG TAKE ONE TABLET BY MOUTH DAILY Oral for 30 Not-Taking TraZODone HCl 50 MG Orally as needed Active Vitamin D (Ergocalciferol) 1.25 MG (50011 UT) TAKE ONE CAPSULE BY MOUTH EVERY WEEK FOR 12 WEEKS Oral for 90 No t-Taking Polytrim 42618-4.1 UNIT/ML 1 gtt ou Ophthalmic Four times a day for 7 day(s) Nov, Not-Taking PROCEDURES No Information RESULTS No Results REASON FOR VISIT MRI MEDICAL (GENERAL) HISTORY Type Description Date Medical History recurrent UTIs Medical History low back pain Medical History Anemia Medical History Hypertension Surgical History tubal ligation 2003 Surgical History Recurrent stye infection - eye surgery 1 989 Surgical History right carpal tunnel 05/31 Hospitalization History childbirth Goals Section No Information Health Concerns No Information MEDICAL EQUIPMENT No Information MENTAL STATUS No Information FUNCTIONAL STATUS No Information ASSESSMENTS No Information PLAN OF TREATMENT Next Appt Details Provider Name:Wilder Koch, 11:20:00 AM, [address] [place], [address], Insurance Providers Payer Name Payer Address Payer Phone Insured Name Patient Relati onship to Insured Coverage Start Date Coverage End Date BS [place] [facility] [address] [place] [address] KRISTINE JOE self
--- OUTSIDE RECORDS SUMMARY | 2020-10-08 10:44 | CCD | Continuity of Care Document ---
Author Author Francine ROSARIO MD Organization Unknown Address [address] [address] Phone [phone] Care Team Providers Care Tobacco Wrapping Machine Tender Name Role Phone Alberta Garcia ROUNDHOUSE FIRER/FIREMAN AUTM Problems Active Problems Provider Date Pure [...] do not fill until 08/17/20) 6tabs Omer Rosario MD 2020 Trazodone HCL 100mg Tablets 1 [...] H/L Range Note Creatinine With GFR 09/03/2020 [facility] ntr [address] [place] [address] (440)- - Creatinine For GFR 1.00 mg/dL Normal 0.55-1.30 Glomerular Filtration Rate > 60.0 Normal >58 1 Laboratory test finding 09/03/2020 [facility] l Cent[facility] [address] [place] [address] (315)- - Rheumatoid Factor Quant < 10.0 IU/mL Normal <15.0 2 CBC With Differential 09/03/2020 [facility] [place] [address] [place] [address] (315)- - White Blood Count 5.9 10 [...] 10 Normal 0.0-0.2 Laboratory test finding 09/03/2020 [facility] [address] [place] [address] (315)- - Erythrocyte Sedimentation Rate 33 mm/hr High 0-20 Lyme Disease SCRN With Confirm 09/03/2020 [facility] [address] [address] (315)- - Lyme Disease IgG/IgM Antibodie <0.91 ISR Normal 0.00- 0.90 3 Lyme Disease IgM Ab Quantitati <0.80 index Normal 0.00-0.79 4 Antinuclear Antibodies 09/03/2020 [facility] [address] [place] [address] (315)- - Antinuclear Antibodies Direct Negative Normal Negati ve 5 Laboratory test finding 08/12/2020 In House Covid Rapid Testing NEGATIVE Order 07/02/2020 [facility] [address] [facility] [address] [place] [address] Surgery <pending> 1 Units are mL/min/1.73 m2 Chronic Kidney Disease Staging per NKF: Stage I & II GFR >=60 Normal to Mildly Decreased Stage III GFR 30-59 Moderately Decreased Stage IV GFR 15-29 Severely Decreased Stage V GFR <15 Very Little GFR Left ESRD GFR <15 on STRIP TANK TENDER 2 note:<nlbl:demographic_chang ed> 3 Negative <0.91 Equivocal 0.91 - 1.09 Positive >1.09 4 Negative <0.80 Equivocal 0.80 - 1.19 Positive >1.19 . IgM levels may peak at 3-6 weeks post infection, then gradually decline. 5 Performed at: RN - [facility] [address] [id number] Drug Room Operator: Keke Euceda MD, Phone: [phone] Procedures Date Code Description Status 09/03/2020 00795 X-Ray Knee Complete W/Obliques & Tunnel And/Or Standing Views Completed 09/03/2020 15431 X-Ray Knee Complete W/Obliques & Tunnel And/Or Standing Views Completed 08/17/2020 64368 Endoscopy Wrist W/Release Transv erse Carpal Ligament Completed Medical Devices Description No Information Available Encounters Type Date Location Provider Dx Diagnosis Office Visit 09/03/2020 9:30a Joel Constantino MD M25.562 Pain in left knee M25.561 Pain in right knee Office Visit 08/27/2020 9:45a Joel Rosario MD Z48.811 Encntr for surgical aftcr fol surgery on the nervous sys Office Visit 06/30/2020 11:30a Joel Rosario MD G56.02 Carpal tunnel syndrome, left upper limb Assessments Date Code Description Provider 09/03/2020 M25.562 Pain in left knee Juan Antonio Constantino MD 09/03/2020 M25.561 Pain in right knee Juan Antonio cancino MD 08/27/2020 Z48.811 Encounter for surgic al aftercare following surgery on the nervous system Omer Rosario MD 08/17/2020 G56.02 Carpal tunnel syndrome, left upp er limb Omer Rosario MD 08/12/2020 Z20.828 Contact with [...] Rosario MD Plan of Treatment Future Appointment(s):* 09/17/2020 10:30 am - Juan Antonio Constantino MD at [facility] * 09/09/2020 1:30 pm - MRI at [facility] * 09/09/2020 12:30 pm - MRI at [facility] 09/03/2020 - Juan Antonio Constantino MD* M25.562 Pain in left knee* New [...] Referral Status Appt Date Omer Rosario MD MRI NO AUTH REQUIRED FOR CHARLENE ATERAL MRI OF KNEE ([id number]) TO MRI. DG Created [address] [facility], [address] [place] [address] [phone] Omer Rosario MD SURGERY NO AUTH REQUIRED FOR CTR([id number]) TO SURGERY NT Created [address] [place] [address] [phone] Omer Rosario MD DME [facility] NO AUTH REQUIRED BASED ON MEDICAL NECESSITY. LS Created [address] [place] [address], [address] [place] [address] [phone]
--- OUTSIDE RECORDS SUMMARY | 2020-10-08 10:44 | CCD ---
Author Author [facility] Organization [facility]erg[facility] With [facility] Address Unknown Phone Unavailable Care Team Providers Care Director Plans Name Role Phone Elizabeth Sifuentes Unavailable PROBLEMS Type Condition ICD9-CM Code FZZ25-NV Code Onset Dates Condition S tatus W/U Status Risk SNOMED Code Notes Problem Tobacco use disorder Z72.0 Active confirmed 88229732 Problem Obesity (BMI 30-39.9) E66.9 Active confirmed 701710452 Problem Generalized anxiety disorder F41.1 Active confirme d 34475486 Problem Menorrhagia N92.0 Active confirmed 97197746 8 Problem Bipolar affective disorder in remission F31.70 Active confirmed 56311406 Problem Abnormal uterine bleeding N93.9 Active confirmed 34983078495789 Problem History of hypertension Z86.79 Active confirmed 075934311 Problem New daily persistent headache G44.52 Active confirm ed 754378629 Problem Smoker F17.200 Active confirmed 86767905 Problem Dysmenorrhea N94.6 Active confirmed 5248134 00 ALLERGIES No Known Allergies ENCOUNTERS from 1975 to 2020-09-13 Encounter Location Date Provider Diagnosis [facility] [address] [place] [address] Sep, Elizabeth Sifuentes IMMUNIZATIONS Vaccine Route Administration Date Status Pneumococcal [...] Ora lly Three times a day Active Vitamin D (Ergocalciferol) 1.25 MG (60350 UT) TAKE ONE CAPSULE BY MOUTH EVERY WEEK FOR 12 WEEKS Oral for 90 No t-Taking Amlodipine Besylate 5 MG TAKE ONE TABLET BY MOUTH DAILY Oral for 30 Not-Taking Chlorthalidone 25 MG 1 tablet in the morning with food Orally Once a day Active TraZODone HCl 50 MG Orally as needed Active Iron (Ferrous Sulfate) 325 (65 Fe) MG 1 tablet Orally Once a day Not-Taking Polytrim 14895-5.1 UNIT/ML 1 gtt ou Ophthalmic Four times a day for 7 day(s) Nov, Not-Taking PROCEDURES No Information RESULTS No Results REASON FOR VISIT sched f/u appt - breast MEDICAL (GENERAL) HISTORY Type Description Date Medical History recurrent UTIs Medical History low back pain Medical History Anemia Medical History Hypertension Medical History bilateral knee pain Surgical History tubal ligation 2003 Surgical History Recurrent stye infection - eye surgery 1 989 Surgical History right carpal tunnel 05/31 Surgical History left carpal tunnel 08/2020 Hospitalization History childbirth Goals Section No Information Health Concerns No Information MEDICAL EQUIPMENT No Information MENTAL STATUS No Information FUNCTIONAL STATUS No Information ASSESSMENTS No Information PLAN OF TREATMENT Next Appt Details Provider Name:Elizabeth Sifuentes, 03-10-14 09:30:00 AM, [address] [place] [address], [address], Provider Name:Wilder Koch, 08:00:00 AM, [address] [place] [address], [phone], Provider Name:Wilder Koch, 08:20:00 AM, [address] [place] [address], [phone], Insurance Providers Payer Name Payer Address Payer Phone Insured Name Patient Relati onship to Insured Coverage Start Date Coverage End Date [employer] [place] [address] [address] [facility] [id number] [place]
--- OUTSIDE RECORDS SUMMARY | 2020-10-08 10:44 | CCD ---
Author Author [facility] Organization [facility] Address Unknown Phone Unavailable Care Team Providers Care Content Strategist Name Role Phone Wilder Koch Unavailable PROBLEMS Type Condition ICD9-CM Code AXY29-JA Code Onset Dates Condition S tatus W/U Status Risk SNOMED Code Notes Problem Tobacco use disorder Z72.0 Active confirmed 32508792 Problem Obesity (BMI 30-39.9) E66.9 Active confirmed 757861800 Problem Generalized anxiety disorder F41.1 Active confirme d 26444630 Problem Menorrhagia N92.0 Active confirmed 07235045 8 Problem Bipolar affective disorder in remission F31.70 Active confirmed 80740241 Problem Abnormal uterine bleeding N93.9 Active confirmed 69359553299009 Problem History of hypertension Z86.79 Active confirmed 886544073 Problem New daily persistent headache G44.52 Active confirm ed 413735808 Problem Smoker F17.200 Active confirmed 84065496 Problem Dysmenorrhea N94.6 Active confirmed 2637068 00 ALLERGIES No Known Allergies ENCOUNTERS from 1974 to 2020-09-13 Encounter Location Date Provider Diagnosis [facility] [address] [place] [phone] Sep, Wilder Koch IMMUNIZATIONS Vaccine Route Administration Date Status Pneumococcal [...] day Active Vitamin D (Ergocalciferol) 1.25 MG (64646 UT) TAKE ONE CAPSULE BY MOUTH EVERY [...] tablet Orally Once a day Not-Taking Polytrim 52969-4.1 UNIT/ML 1 gtt ou Ophthalmic Four times a day for 7 day(s) Nov, Not-Taking PROCEDURES No Information RESULTS No Results REASON FOR VISIT AUTHORIZATION MEDICAL (GENERAL) HISTORY Type Description Date Medical [...] Details Provider Name:Elizabeth Sifuentes, 03-10-14 09:30:00 AM, [address] [place] [address], [facility], Provider Name:Wilder Koch, 08:00:00 AM, [address] [place] [address], [phone], Provider Name:Wilder Koch, 08:20:00 AM, [address] [place] [address], [phone], Insurance Providers Payer Name Payer Address Payer Phone Insured Name Patient Relati onship to Insured Coverage Start Date Coverage End Date [facility] [employer] [address] [place] [address] [place]
--- OUTSIDE RECORDS SUMMARY | 2020-10-08 10:45 | CCD ---
Author Author [facility] Address Unknown Phone Unavailable Support Name Relationship Address [place] [address] [place] [address] [place] [address] Sanna Zamora Next Of Kin Unknown Unavailable Gustavo Amor Next Of [facility] [address] [place] [address] Christiana Stone MD Next Of [facility] [address] [place] [address] [facility]* Next Of Kin [address] [place] [address] WILLIAM ZAMORA Next Of Kin [address] [place] [address] [facility] Next Of Kin [address] [place] [address] Pam Khoury Next Of Kin [address] [place], [place] [id number] [facility] Next Of Kin [address] [place] [address] CHEST, ENRIQUE Next Of Kin [address] [place] [address] Matt Anderson MD Next Of Kin [address] [place] [address] [place] Next Of Kin [address] [place] [address] Adam WALKER, Emely Next Of Kin [address] [facility] [place] [address] SANNA ZAMORA Next Of Kin [address] [place] [address] UE Next Of Kin Unknown Unavailable [facility] [place] [address] NELLY LICONA Next Of Kin [address] [place] [address] [address] Sanna [address] [address] Unavailable Care Team Providers Care Doggy Daycare Activities Director Name Role Phone Jerrod Shearer MD Unavailable Unavailable Jerrod Shearer MD Unavailable Unavailable Jerrod Shearer MD Unavailable Unavailable Jerrod Shearer MD Unavailable Unavailable Jerrod Shearer MD Unavailable Unavailable Jerrod Shearer MD Unavailable Unavailable Jerrod Shearer MD Unavailable Unavailable Jerrod Shearer MD Unavailable Unavailable Jerrod Shearer MD Unavailable Unavailable Jerrod Shearer MD Unavailable Unavailable Jerrod Shearer MD Unavailable Unavailable Jerrod Shearer MD Unavailable Unavailable Jerrod Shearer MD Unavailable Unavailable Jerrod Shearer MD Unavailable Unavailable Jerrod Shearer MD Unavailable Unavailable Jerrod Shearer MD Unavailable Unavailable Jerrod Shearer MD Unavailable Unavailable Jerrod Shearer MD Unavailable Unavailable Jerrod Shearer MD Unavailable Unavailable Jerrod Shearer MD Unavailable Unavailable Jerrod Shearer MD Unavailable Unavailable Jerrod Shearer MD Unavailable Unavailable Jerrod Shearer MD Unavailable Unavailable Jerrod Shearer MD Unavailable Unavailable Jerrod Shearer MD Unavailable Unavailable Jerrod Shearer MD Unavailable Unavailable Jerrod Shearer MD Unavailable Unavailable Jerrod Shearer MD Unavailable Unavailable Jerrod Shearer MD Unavailable Unavailable Jerrod Shearer MD Unavailable Unavailable Jerrod Shearer MD Unavailable Unavailable Jerrod Shearer MD Unavailable Unavailable Jerrod Shearer MD Unavailable Unavailable Jerrod Shearer MD Unavailable Unavailable Jerrod Shearer MD Unavailable Unavailable Jerrod Shearer MD Unavailable Unavailable Jerrod Shearer MD Unavailable Unavailable Jerrod Shearer MD Unavailable Unavailable Jerrod Shearer MD Unavailable Unavailable Jerrod Shearer MD Unavailable Unavailable Jerrod Shearer MD Unavailable Unavailable Jerrod Shearer MD Unavailable Unavailable Jerrod Shearer MD Unavailable Unavailable Jerrod Shearer MD Unavailable Unavailable Jerrod Shearer MD Unavailable Unavailable Jerrod Shearer MD Unavailable Unavailable Jerrod Shearer MD Unavailable Unavailable Jerrod Shearer MD Unavailable Unavailable Jerrod Shearer MD Unavailable Unavailable Jerrod Shearer MD Unavailable Unavailable Jerrod Shearer MD Unavailable Unavailable Jerrod Shearer MD Unavailable Unavailable Jerrod Shearer MD Unavailable Unavailable Jerrod Shearer MD Unavailable Unavailable Jose, A Gustavo CLERK OF COURT Unavailable Unavailable Jose, A Gustavo CLERK OF COURT Unavailable Unavailable Jose, A Gustavo CLERK OF COURT Unavailable Unavailable Jose, A Gustavo CLERK OF COURT Unavailable Unavailable Jose, A Gustavo CLERK OF COURT Unavailable Unavailable Jose, A Gustavo CLERK OF COURT Unavailable Unavailable Jose, A Gustavo CLERK OF COURT Unavailable Unavailable Jose, A Gustavo CLERK OF COURT Unavailable Unavailable Jose, A Gustavo CLERK OF COURT Unavailable Unavailable Nordman, A Gustavo CLERK OF COURT Unavailable Unavailable Nordman, A Gustavo CLERK OF COURT Unavailable Unavailable Nordman, A Gustavo CLERK OF COURT Unavailable Unavailable Nordman, A Gustavo CLERK OF COURT Unavailable Unavailable Nordman, A Gustavo CLERK OF COURT Unavailable Unavailable Nordman, A Gustavo CLERK OF COURT Unavailable Unavailable Nordman, A Gustavo CLERK OF COURT Unavailable Unavailable Nordman, A Gustavo CLERK OF COURT Unavailable Unavailable Nordman, A Gustavo CLERK OF COURT Unavailable Unavailable Nordman, A Gustavo CLERK OF COURT Unavailable Unavailable Nordman, A Gustavo CLERK OF COURT Unavailable Unavailable Nordman, A Gustavo CLERK OF COURT Unavailable Unavailable Nordman, A Gustavo CLERK OF COURT Unavailable Unavailable Nordman, A Gustavo CLERK OF COURT Unavailable Unavailable Nordman, A Gustavo CLERK OF COURT Unavailable Unavailable Nordman, A Gustavo CLERK OF COURT Unavailable Unavailable Nordman, A Gustavo CLERK OF COURT Unavailable Unavailable Nordman, A Gustavo CLERK OF COURT Unavailable Unavailable Jose, A Gustavo CLERK OF COURT Unavailable Unavailable Bull, L Jade PA Unavailable Unavailable Bull, L Jade PA Unavailable Unavailable Bull, L Jade PA Unavailable Unavailable Bull, L Jade PA Unavailable Unavailable Bull, L Jade PA Unavailable Unavailable Bull, L Jade PA Unavailable Unavailable Bull, L Jade PA Unavailable Unavailable Bull, L Jade PA Unavailable Unavailable Bull, L Jade PA Unavailable Unavailable Bull, L Jade PA Unavailable Unavailable Bull, L Jade PA Unavailable Unavailable Bull, L Jade PA Unavailable Unavailable Bull, L Jade PA Unavailable Unavailable Bull, L Jade PA Unavailable Unavailable Bull, L Jade PA Unavailable Unavailable Bull, L Jade PA Unavailable Unavailable Bull, L Jade PA Unavailable Unavailable Bull, L Jade PA Unavailable Unavailable Bull, L Jade PA Unavailable Unavailable Bull, L Jade PA Unavailable Unavailable Bull, L Jade PA Unavailable Unavailable Bull, L Jade PA Unavailable Unavailable Bull, L Jade PA Unavailable Unavailable Fish, B Juan Antonio ALVARADO Unavailable Unavailable Fish, B Juan Antonio ALVARADO Unavailable Unavailable Fish, B Juan Antonio ALVARADO Unavailable Unavailable Fish, B Juan Antonio ALVARADO Unavailable Unavailable Fish, B Juan Antonio ALVARADO Unavailable Unavailable Fish, B Juan Antonio ALVARADO Unavailable Unavailable Fish, B Juan Antonio ALVARADO Unavailable Unavailable Fish, B Juan Antonio ALVARADO Unavailable Unavailable Fish, B Juan Antonio ALVARADO Unavailable Unavailable Fish, B Juan Antonio ALVARADO Unavailable Unavailable Fish, B Juan Antonio ALVARADO Unavailable Unavailable Fish, B Juan Antonio ALVARADO Unavailable Unavailable Fish, B Juan Antonio ALVARADO Unavailable Unavailable Fish, B Juan Antonio ALVARADO Unavailable Unavailable Fish, B Juan Antonio ALVARADO Unavailable Unavailable Fish, B Juan Antonio ALVARADO Unavailable Unavailable Fish, B Juan Antonio ALVARADO Unavailable Unavailable Fish, B Juan Antonio ALVARADO Unavailable Unavailable Fish, B Juan Antonio ALVARADO Unavailable Unavailable Fish, B Juan Antonio ALVARADO Unavailable Unavailable Fish, B Juan Antonio ALVARADO Unavailable Unavailable Fish, B Juan Antonio ALVARADO Unavailable Unavailable Fish, B Juan Antonio ALVARADO Unavailable Unavailable Fish, B Juan Antonio ALVARADO Unavailable Unavailable Fish, B Juan Antonio ALVARADO Unavailable Unavailable Fish, B Juan Antonio ALVARADO Unavailable Unavailable Fish, B Juan Antonio ALVARADO Unavailable Unavailable Fish, B Juan Antonio ALVARADO Unavailable Unavailable Fish, B Juan Antonio ALVARADO Unavailable Unavailable Fish, B Juan Antonio ALVARADO Unavailable Unavailable Fish, B Juan Antonio ALVARADO Unavailable Unavailable Fish, B Juan Antonio ALVARADO Unavailable Unavailable Fish, B Juan Antonio ALVARADO Unavailable Unavailable Fish, B Juan Antonio ALVARADO Unavailable Unavailable Fish, B Juan Antonio ALVARADO Unavailable Unavailable Fish, B Juan Antonio ALVARADO Unavailable Unavailable Fish, B Juan Antonio ALVARADO Unavailable Unavailable Fish, B Juan Antonio ALVARADO Unavailable Unavailable Fish, B Juan Antonio ALVARADO Unavailable Unavailable Fish, B Juan Antonio ALVARADO Unavailable Unavailable Fish, B Juan Antonio ALVARADO Unavailable Unavailable Fish, B Juan Antonio ALVARADO Unavailable Unavailable Fish, B Juan Antonio ALVARADO Unavailable Unavailable Fish, B Juan Antonio ALVARADO Unavailable Unavailable Fish, B Juan Antonio ALVARADO Unavailable Unavailable Fish, B Juan Antonio ALVARADO Unavailable Unavailable Fish, B Juan Antonio ALVARADO Unavailable Unavailable Fish, B Juan Antonio ALVARADO Unavailable Unavailable Fish, B Juan Antonio ALVARADO Unavailable Unavailable Fish, B Juan Antonio ALVARADO Unavailable Unavailable Fish, B Juan Antonio ALVARADO Unavailable Unavailable Fish, B Juan Antonio ALVARADO Unavailable Unavailable Fish, B Juan Antonio ALVARADO Unavailable Unavailable NEGRITA, Jenna VILLEDA MD Unavailable Unavailable NEGRITA, Jenna VILLEDA MD Unavailable Unavailable NEGRITA, Jenna VILLEDA MD Unavailable Unavailable NEGRITA, Jenna VILLEDA MD Unavailable Unavailable NEGRITA, Jenna VILLEDA MD Unavailable Unavailable NEGRITA, Jenna VILLEDA MD Unavailable Unavailable NEGRITA, Jenna VILLEDA MD Unavailable Unavailable NEGRITA, Jenna VILLEDA MD Unavailable Unavailable Jenna STONE MD Unavailable Unavailable Jenna STONE MD Unavailable Unavailable Jenna STONE MD Unavailable Unavailable Jenna STONE MD Unavailable Unavailable Jenna STONE MD Unavailable Unavailable Jenna STONE MD Unavailable Unavailable Jenna STONE MD Unavailable Unavailable Jenna STONE MD Unavailable Unavailable Jenna STONE MD Unavailable Unavailable Jenna STONE MD Unavailable Unavailable Jenna STONE MD Unavailable Unavailable Jenna STONE MD Unavailable Unavailable Jenna STONE MD Unavailable Unavailable Jenna STONE MD Unavailable Unavailable Jenna STONE MD Unavailable Unavailable Jenna STONE MD Unavailable Unavailable Jenna STONE MD Unavailable Unavailable Jenna STONE MD Unavailable Unavailable Jenna STONE MD Unavailable Unavailable Jenna STONE MD Unavailable Unavailable Jenna STONE MD Unavailable Unavailable Jenna STONE MD Unavailable Unavailable Jenna STONE MD Unavailable Unavailable Jenna STONE MD Unavailable Unavailable Jenna STONE MD Unavailable Unavailable Jenna STONE MD Unavailable Unavailable Jenna STONE MD Unavailable Unavailable Jenna STONE MD Unavailable Unavailable Jenna STONE MD Unavailable Unavailable Jenna STONE MD Unavailable Unavailable Jenna STONE MD Unavailable Unavailable Jenna STONE MD Unavailable Unavailable Jenna STONE MD Unavailable Unavailable Jenna STONE MD Unavailable Unavailable Jenna STONE MD Unavailable Unavailable Jenna STONE MD Unavailable Unavailable Jenna STONE MD Unavailable Unavailable Jenna STONE MD Unavailable Unavailable Jenna STONE MD Unavailable Unavailable Jenna STONE MD Unavailable Unavailable Jenna STONE MD Unavailable Unavailable Jenna STONE MD Unavailable Unavailable Jenna STONE MD Unavailable Unavailable Jenna STONE MD Unavailable Unavailable Jenna STONE MD Unavailable Unavailable Jenna STONE MD Unavailable Unavailable Jenna STONE MD Unavailable Unavailable Jenna STONE MD Unavailable Unavailable Jenna STONE MD Unavailable Unavailable Jenna STONE MD Unavailable Unavailable Jenna STONE MD Unavailable Unavailable Jenna STONE MD Unavailable Unavailable Jenna STONE MD Unavailable Unavailable Jenna STONE MD Unavailable Unavailable Jenna STONE MD Unavailable Unavailable NEGRITA, Jenna VILLEDA MD Unavailable Unavailable NEGRITA, Jenna VILLEDA MD Unavailable Unavailable NEGRITA, Jenna VILLEDA MD Unavailable Unavailable NEGRITA, Jenna VILLEDA MD Unavailable Unavailable NEGRITA, Jenna VILLEDA MD Unavailable Unavailable NEGRITA, Jenna VILLEDA MD Unavailable Unavailable NEGRITA, Jenna VILLEDA MD Unavailable Unavailable NEGRITA, Jenna VILLEDA MD Unavailable Unavailable NEGRITA, Jenna VILLEDA MD Unavailable Unavailable NEGRITA, Jenna VILLEDA MD Unavailable Unavailable NEGRITA, Jenna VILLEDA MD Unavailable Unavailable NEGRITA, Jenna VILLEDA MD Unavailable Unavailable NEGRITA, Jenna VILLEDA MD Unavailable Unavailable NEGRITA, Jenna VILLEDA MD Unavailable Unavailable NEGRITA, Jenna VILLEDA MD Unavailable Unavailable NEGRITA, Jenna VILLEDA MD Unavailable Unavailable NEGRITA, Jenna VILLEDA MD Unavailable Unavailable NEGRITA, Jenna VILLEDA MD Unavailable Unavailable NEGRITA, Jenna VILLEDA MD Unavailable Unavailable NEGRITA, Jenna VILLEDA MD Unavailable Unavailable GUGA, JÚNIOR PA Unavailable Unavailable GUGA, JÚNIOR PA Unavailable Unavailable GUGA, JÚNIOR PA Unavailable Unavailable GUGA, JÚNIOR PA Unavailable Unavailable GUGA, JÚNIOR PA Unavailable Unavailable GUGA, JÚNIOR PA Unavailable Unavailable REINDL, CHRISTIANA ALVARADO Unavailable Unavailable REINDL, CHRISTIANA ALVARADO Unavailable Unavailable REINDL, CHRISTIANA ALVARADO Unavailable Unavailable REINDL, CHRISTIANA ALVARADO Unavailable Unavailable REINDL, CHRISTIANA ALVARADO Unavailable Unavailable REINDL, CHRISTIANA ALVARADO Unavailable Unavailable REINDL, CHRISTIANA ALVARADO Unavailable Unavailable REINDL, CHRISTIANA ALVARADO Unavailable Unavailable REINDL, CHRISTIANA ALVARADO Unavailable Unavailable REINDL, CHRISTIANA ALVARADO Unavailable Unavailable REINDL, CHRISTIANA ALVARADO Unavailable Unavailable REINDL, CHRISTIANA ALVARADO Unavailable Unavailable REINDL, CHRISTIANA ALVARADO Unavailable Unavailable REINDL, CHRISTIANA ALVARADO Unavailable Unavailable REINDL, CHRISTIANA ALVARADO Unavailable Unavailable REINDL, CHRISTIANA ALVARADO Unavailable Unavailable REINDL, CHRISTIANA ALVARADO Unavailable Unavailable REINDL, CHRISTIANA ALVARADO Unavailable Unavailable REINDL, CHRISTIANA ALVARADO Unavailable Unavailable REINDL, CHRISTIANA ALVARADO Unavailable Unavailable REINDL, CHRISTIANA ALVARADO Unavailable Unavailable REINDL, CHRISTIANA ALVARADO Unavailable Unavailable REINDL, CHRISTIANA ALVARADO Unavailable Unavailable REINDL, CHRISTIANA ALVARADO Unavailable Unavailable REINDL, CHRISTIANA ALVARADO Unavailable Unavailable REINDL, CHRISTIANA ALVARADO Unavailable Unavailable REINDL, CHRISTIANA ALVARADO Unavailable Unavailable REINDL, CHRISTIANA ALVARADO Unavailable Unavailable REINDL, CHRISTIANA ALVARADO Unavailable Unavailable REINDL, CHRISTIANA ALVARADO Unavailable Unavailable REINDL, CHRISTIANA ALVARADO Unavailable Unavailable REINDL, CHRISTIANA ALVARADO Unavailable Unavailable REINDL, CHRISTIANA ALVARADO Unavailable Unavailable REINDL, CHRISTIANA ALVARADO Unavailable Unavailable REINDL, CHRISTIANA ALVARADO Unavailable Unavailable REINDL, CHRISTIANA ALVARADO Unavailable Unavailable REINDL, CHRISTIANA ALVARADO Unavailable Unavailable REINDL, CHRISTIANA ALVARADO Unavailable Unavailable REINDL, CHRISTIANA ALVARADO Unavailable Unavailable REINDL, CHRISTIANA ALVARADO Unavailable Unavailable REINDL, CHRISTIANA ALVARADO Unavailable Unavailable REINDL, CHRISTIANA ALVARADO Unavailable Unavailable REINDL, CHRISTIANA ALVARADO Unavailable Unavailable REINDL, CHRISTIANA ALVARADO Unavailable Unavailable Jose, Gustavo CLERK OF COURT CLERK OF COURT Unavailable Unavailable ANNALISA, L GUSTAVO PA Unavailable Unavailable ANANLISA, L GUSTAVO PA Unavailable Unavailable ANNALISA, L GUSTAVO PA Unavailable Unavailable ANNALISA, L GUSTAVO PA Unavailable Unavailable ANNALISA, L GUSTAVO PA Unavailable Unavailable ANNALISA, L GUSTAVO PA Unavailable Unavailable ANNALISA, L GUSTAVO PA Unavailable Unavailable ANNALISA, L GUSTAVO PA Unavailable Unavailable ANNALISA, L GUSTAVO PA Unavailable Unavailable ANNALISA, L GUSTAVO PA Unavailable Unavailable ANNALISA, L GUSTAVO PA Unavailable Unavailable ANNALISA, L GUSTAVO PA Unavailable Unavailable Jose, A Gustavo CLERK OF COURT Unavailable Unavailable Jose, A Gustavo CLERK OF COURT Unavailable Unavailable Jose, A Gustavo CLERK OF COURT Unavailable Unavailable Jose, A Gustavo CLERK OF COURT Unavailable Unavailable Jose, A Gustavo CLERK OF COURT Unavailable Unavailable Jose, A Gustavo CLERK OF COURT Unavailable Unavailable Jose, A Gustavo CLERK OF COURT Unavailable Unavailable Jsoe, A Gustavo CLERK OF COURT Unavailable Unavailable Jose, A Gustavo CLERK OF COURT Unavailable Unavailable Jose, A Gustavo CLERK OF COURT Unavailable Unavailable Jose, A Gustavo CLERK OF COURT Unavailable Unavailable Nordman, A Gustavo CLERK OF COURT Unavailable Unavailable Nordman, A Gustavo CLERK OF COURT Unavailable Unavailable Nordman, A Gustavo CLERK OF COURT Unavailable Unavailable Nordman, A Gustavo CLERK OF COURT Unavailable Unavailable Jose, A Gustavo CLERK OF COURT Unavailable Unavailable Jose, A Gustavo CLERK OF COURT Unavailable Unavailable Jose, A Gustavo CLERK OF COURT Unavailable Unavailable Nordman, A Gustavo CLERK OF COURT Unavailable Unavailable Nordman, A Gustavo CLERK OF COURT Unavailable Unavailable Jose, A Gustavo CLERK OF COURT Unavailable Unavailable Jose, A Gustavo CLERK OF COURT Unavailable Unavailable Jose, A Gustavo CLERK OF COURT Unavailable Unavailable Jose, A Gustavo CLERK OF COURT Unavailable Unavailable Jose, A Gustavo CLERK OF COURT Unavailable Unavailable Jose, A Gustavo CLERK OF COURT Unavailable Unavailable Jose, A Gustavo CLERK OF COURT Unavailable Unavailable Jose, A Gustavo CLERK OF COURT Unavailable Unavailable Cheri Figueredo MD Unavailable Unavailable Cheri Figueredo MD Unavailable Unavailable Cheri Figueredo MD Unavailable Unavailable Cheri Figueredo MD Unavailable Unavailable Cheri Figueredo MD Unavailable Unavailable Cheri Figueredo MD Unavailable Unavailable Cheri Figueredo MD Unavailable Unavailable Figueredo, L Omer MD Unavailable Unavailable Figueredo, L Omer MD Unavailable Unavailable Figueredo, L Omer MD Unavailable Unavailable Figueredo, L Omer MD Unavailable Unavailable Figueredo, L Omer MD Unavailable Unavailable Figueredo, L Omer MD Unavailable Unavailable Figueredo, L Omer MD Unavailable Unavailable Figueredo, L Omer MD Unavailable Unavailable Figueredo, L Omer MD Unavailable Unavailable Figueredo, L Omer MD Unavailable Unavailable Figueredo, L Omer MD Unavailable Unavailable Figueredo, L Omer MD Unavailable Unavailable Figueredo, L Omer MD Unavailable Unavailable Figueredo, L Omer MD Unavailable Unavailable Figueredo, L Omer MD Unavailable Unavailable Figueredo, L Omer MD Unavailable Unavailable Figueredo, L Omer MD Unavailable Unavailable Figueredo, L Omer MD Unavailable Unavailable Figueredo, L Omer MD Unavailable Unavailable Figueredo, L Omer MD Unavailable Unavailable Figueredo, L Omer MD Unavailable Unavailable Figueredo, L Omer MD Unavailable Unavailable Figueredo, L Omer MD Unavailable Unavailable Figueredo, L Omer MD Unavailable Unavailable Figueredo, L Omer MD Unavailable Unavailable Figueredo, L Omer MD Unavailable Unavailable Figueredo, L Omer MD Unavailable Unavailable Figueredo, L Omer MD Unavailable Unavailable Figueredo, L Omer MD Unavailable Unavailable Figueredo, L Omer MD Unavailable Unavailable Figueredo, L Omer MD Unavailable Unavailable Figueredo, L Omer MD Unavailable Unavailable Figueredo, L Omer MD Unavailable Unavailable Figueredo, L Omer MD Unavailable Unavailable Figueredo, L Omer MD Unavailable Unavailable Figueredo, L Omer MD Unavailable Unavailable Figueredo, L Omer MD Unavailable Unavailable Figueredo, L Omer MD Unavailable Unavailable Figueredo, L Omer MD Unavailable Unavailable Figueredo, L Omer MD Unavailable Unavailable Figueredo, L Omer MD Unavailable Unavailable Re-disclosure Warning The records that you are about to access may contain information from federally-assisted alcohol or drug abuse programs. If such information is present, then the following federally mandated warning applies: This information has been disclosed to you from records protected by federal confidentiality rules (42 CFR part 2). The federal rules prohibit you from making any further disclosure of this information unless further disclosure is expressly permitted by the written consent of the person to whom it pertains or as otherwise permitted by 42 CFR part 2. A general authorization for the release of medical or other information is NOT sufficient for this purpose. The Federal rules restrict any use of the information to criminally investigate or prosecute any alcohol or drug abuse patient.The records that you are about to access may contain highly sensitive health information, the redisclosure of which is protected by Article 27-F of the [place] Public Health law. If you continue you may have access to information: Regarding HIV / AIDS; Provided by facilities licensed or operated by the [facility] Office of Mental Health; or Provided by the [facility] Office for People With Developmental Disabilities. If such information is present, then the following [facility] mandated warning applies: This information has been disclosed to you from confidential records which are protected by state law. State law prohibits you from making any further disclosure of this information without the specific written consent of the person to whom it pertains, or as otherwise permitted by law. Any unauthorized further disclosure in violation of state law may result in a fine or mcfp sentence or both. A general authorization for the release of medical or other information is NOT sufficient authorization for further disc losure. Family History Family Member Name Family Member Gender Family Member Status Date o f Status Description Data Source(s) Unknown Male Problem [facility] ([facility]) Encounters Encounter Providers Location Date Indications Data Source(s ) Outpatient Attender: GUSTAVO CALDERÓN Main Office 09/28/2020 0 2:30:00 PM EST [facility] ([facility]) Outpatient Attender: CHRISTIANA Garcia/[place]/Noel/Quan dl 09/23/2020 12:15:00 PM EST [facility] ([facility]) Outpatient Attender: Juan Antonio Constantino MD Physical Therapy 09/17/2020 0 9:30:00 AM EST [facility] ([facility] ) Unknown [address] [facility] [place] [address] 09/13/2020 12:00:00 AM EST eCW1 ([facility]) [place] [address] [facility] [place] [address] 09/13/2020 12:00:00 AM EST eCW1 ([facility]) TIMA Cueva-BC: [address] [place] [address], Ph. Attender: Gustavo ALFRED [facility] Medical 09/09/2020 12:00:00 AM EST WANDY ([facility]) Outpatient Attender: Juan Antonio Constantino MD Physical Therapy 09/03/2020 0 8:30:00 AM EST [facility] ([facility]) Office Visit Attender: Omer Figueredo MD Physical Therapy 2020 08:45:00 AM EST [facility] ([facility]) [place] [address] [facility] [address] 08/02/2020 12:00:00 AM EST eCW1 ([facility]) Out[place] [address] [facility] [address] 07/28/2020 12:00:00 AM EST eCW1 ([facility]) Outpatient Attender: Omer Figueredo MD Physical Therapy 06/30/2020 1 0:30:00 AM EST [facility] ([facility]) Outpatient Attender: TIMA ALFRED FP 06/02/2020 03:08:02 A M EDT [facility] Outpatient Attender: Gustavo ALFRED FP 06/02/2020 03:0 7:01 AM EDT [facility] Outpatient Attender: TIMA ALFRED FP 05/31/2020 04:16:04 P M EDT [facility] Outpatient Attender: TIMA ALFRED FP 05/31/2020 02:39:00 P M EDT [facility] Outpatient Attender: TIMA ALFRED FP 05/29/2020 03:43:01 P M EDT [facility] Outpatient Attender: Gustavo ALFRED FP 05/29/2020 03:4 3:00 PM EDT [facility] Outpatient Attender: Gustavo ALFRED FP 05/28/2020 12:5 9:00 AM EDT [facility] Outpatient Attender: TIMA ALFRED FP 05/24/2020 07:53:00 A M EDT [facility] Outpatient Attender: Gustavo ROCK 04/18/2020 02:5 9:01 PM EDT [facility] Outpatient Attender: TIMA ALFRED FP 04/12/2020 03:00:09 P M EDT [facility] Outpatient Attender: Gustavo ROCK 04/12/2020 03:0 0:07 PM EDT [facility] Outpatient Attender: TIMA ROCK 04/12/2020 01:21:01 P M EDT [facility] Outpatient Attender: Gustavo Garcia CLERK OF COURT FP 04/11/2020 11:4 3:00 PM EDT [facility] Outpatient Attender: TIMA Garcia TIMA FP 04/11/2020 11:42:59 P M EDT [facility] Outpatient Attender: Gustavo Garcia CLERK OF COURT FP 04/11/2020 11:4 2:02 PM EDT [facility] Outpatient Attender: CLERK OF COURT Jose CLERK OF COURT FP 04/11/2020 11:42:01 P M EDT [facility] Outpatient Attender: TIMA Garcia CLERK OF COURT FP 04/09/2020 02:24:06 P M EDT [facility] Outpatient Attender: CLERK OF COURT Jose CLERK OF COURT FP 04/09/2020 02:23:01 P M EDT [facility] Outpatient Attender: Jade CALDERÓN Main Office 04/07/2020 08:00:0 0 AM EDT MEDENT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 08/11/2020 11:59:00 AM EST [facility] ([facility]) Name Value Range Interpretation Code Description Data Deysi rce(s) Supporting Document(s) iron (fe) 59 ug/dL 50-170 normal Iron (Fe) [facility] ([facility]) ID Date Data Source [id number] 08/11/2020 11:59:00 AM EST [facility] ([facility]) Name Value Range Interpretation Code Description Data Deysi rce(s) Supporting Document(s) glucose, fasting 88 mg/dL 70-100 normal Glucose, Fasting AT [facility] ([facility]) blood urea nitrogen 8 mg/dL 7-18 normal Blood Urea Nitro gen [facility] ([facility]) sodium level 136 mEq/L 136-145 normal Sodium Level [facility] ([facility]) glomerular filtration rate > 60.0 >58 normal Glomerula r Filtration Rate [facility] ([facility]) creatinine for GFR 0.94 mg/dL 0.55-1.30 normal Creatinine for GF R [facility] ([facility]) potassium serum 4.0 mEq/L 3.5-5.1 normal Potassium Serum [facility] ([facility]) carbon dioxide level 27 mEq/L 21-32 normal Carbon Dioxide Level [facility] ([facility]) anion gap 5 mEq/L 8-16 Below low normal Anion Gap [facility] ( [facility]) chloride level 104 mEq/L 98-107 normal Chloride Level [facility] ([facility]) alkaline phosphatase 59 U/L 45-117 normal Alkaline Phosph atase [facility] ([facility]) bilirubin,total 0.8 mg/dL 0.2-1.0 normal [facility] calcium level 9.2 mg/dL 8.5-10.1 normal Calcium Level [facility] ( [facility]) ALT/SGPT 13 U/L 12-78 normal ALT/SGPT [facility] ([facility]) AST/SGOT 14 U/L 7-37 normal AST/SGOT [facility] ([facility]) total protein 7.7 gm/dL 6.4-8.2 normal Total Protein [facility] ( [facility]) albumin/globulin ratio 1.2-2.2 Below low normal Albumin /globulin Ratio [facility] ([facility]) albumin 3.7 gm/dL 3.2-5.2 normal Albumin [facility] ([facility]) ID Date Data Source [id number] 08/11/2020 11:59:00 AM EST [facility] ([facility]) Name Value Range Interpretation Code Description Data Deysi rce(s) Supporting Document(s) white blood count 5.3 10 4.0-10.0 normal White Blood Count [facility] ([facility]) red blood count 3.99 10 4.00-5.40 Below low normal Red Blood Coun t [facility] ([facility]) mean corpuscular volume 92.5 fL 80.0-96.0 normal Mean Corpusc ular Volume [facility] ([facility]) hemoglobin 11.7 g/dL 12.0-15.5 Below low normal Hemoglobin [facility] ( [facility]) hematocrit 36.9 % 36.0-47.0 normal Hematocrit [facility] ([facility]) mean corpuscular HGB conc 31.7 g/dL 32.0-36.5 Below low kanwal l Mean Corpuscular HGB Conc [facility] ([facility]) red cell distribution width 13.2 % 11.5-14.5 normal Red Cell Distribution Width [facility] ([facility]) mean corpuscular hemoglobin 29.3 pg 27.0-33.0 normal Mean Corpuscular Hemoglobin [facility] ([facility]) lymph % 44.5 % 24.0-44.0 Above high normal Lymph % [facility] ([facility]) neutrophils % 45.5 % 36.0-66.0 normal Neutrophils % [facility] ( [facility]) platelet count, automated 300 10 150-450 normal Platelet C ount, Automated [facility] ([facility]) mono % 7.0 % 0.0-5.0 Above high normal Roane % [facility] ([facility]) immature granulocyte % 0.2 % 0-3.0 normal Immature Gran ulocyte % [facility] ([facility]) eos % 2.4 % 0.0-3.0 normal Eos % [facility] ([facility]) baso % 0.4 % 0.0-1.0 normal Baso % [facility] ([facility]) neutrophils # 2.4 10 1.5-8.5 normal Neutrophils # [facility] ( [facility]) nucleated red blood cell % 0.0 % 0-0 normal Nucleated Red Blood Cell % [facility] ([facility]) lymph # 2.4 10 1.5-5.0 normal Lymph # [facility] ([facility]) eos # 0.1 10 0.0-0.5 normal Eos # [facility] ([facility]) mono # 0.4 10 0.0-0.8 normal Roane # [facility] ([facility]) baso # 0.0 10 0.0-0.2 normal Baso # [facility] ([facility]) ID Date Data Source [id number] 08/11/2020 11:56:00 AM EST [facility] ([facility]) Name Value Range Interpretation Code Description Data Deysi rce(s) Supporting Document(s) HCG, serum qualitative negative negative normal HCG, Serum Qu alitative [facility] ([facility]) ID Date Data Source [id number] 08/11/2020 11:56:00 AM EST [facility] ([facility]) Name Value Range Interpretation Code Description Data Deysi rce(s) Supporting Document(s) follicle stimulating hormone 1.8 mIU/mL normal Follicl e Stimulating Hormone [facility] ([facility]) luteinizing hormone 1.0 mIU/mL normal Luteinizing Horm one [facility] ([facility]) ID Date Data Source [id number] 08/11/2020 11:56:00 AM EST [facility] ([facility]) Name Value Range Interpretation Code Description Data Deysi rce(s) Supporting Document(s) thyroid stimulating hormone 1.190 uIU/mL 0.358-3.740 normal Thyroid Stimulating Hormone [facility] ([facility]) free T4 1.14 NG/dL 0.76-1.46 normal Free T4 [facility] ([facility]) ID Date Data Source [id number] 08/11/2020 11:56:00 AM EST [facility] ([facility]) Name Value Range Interpretation Code Description Data Deysi rce(s) Supporting Document(s) white blood count 5.4 10 4.0-10.0 normal White Blood Count [facility] ([facility]) hemoglobin 11.8 g/dL 12.0-15.5 Below low normal Hemoglobin [facility] ( [facility]) hematocrit 37.2 % 36.0-47.0 normal Hematocrit [facility] ([facility]) red blood count 4.02 10 4.00-5.40 normal Red Blood Count [facility] ([facility]) mean corpuscular HGB conc 31.7 g/dL 32.0-36.5 Below low kanwal l Mean Corpuscular HGB Conc [facility] ([facility]) mean corpuscular volume 92.5 fL 80.0-96.0 normal Mean Corpusc ular Volume [facility] ([facility]) mean corpuscular hemoglobin 29.4 pg 27.0-33.0 normal Mean Corpuscular Hemoglobin [facility] ([facility]) red cell distribution width 13.1 % 11.5-14.5 normal Red Cell Distribution Width [facility] ([facility]) neutrophils % 45.5 % 36.0-66.0 normal Neutrophils % [facility] ( [facility]) lymph % 44.8 % 24.0-44.0 Above high normal Lymph % [facility] ([facility]) platelet count, automated 298 10 150-450 normal Platelet C ount, Automated [facility] ([facility]) eos % 2.8 % 0.0-3.0 normal Eos % [facility] ([facility]) mono % 6.1 % 0.0-5.0 Above high normal Roane % [facility] ([facility]) baso % 0.4 % 0.0-1.0 normal Baso % [facility] ([facility]) neutrophils # 2.5 10 1.5-8.5 normal Neutrophils # [facility] ( [facility]) immature granulocyte % 0.4 % 0-3.0 normal Immature Gran ulocyte % [facility] ([facility]) lymph # 2.4 10 1.5-5.0 normal Lymph # [facility] ([facility]) nucleated red blood cell % 0.0 % 0-0 normal Nucleated Red Blood Cell % [facility] ([facility]) mono # 0.3 10 0.0-0.8 normal Roane # [facility] ([facility]) eos # 0.2 10 0.0-0.5 normal Eos # [facility] ([facility]) baso # 0.0 10 0.0-0.2 normal Baso # [facility] ([facility]) ID Date Data Source [id number] 07/15/2020 02:00:00 PM EST [facility] ([facility]) Name Value Range Interpretation Code Description Data Deysi rce(s) Supporting Document(s) ID Date Data Source [id number] 07/15/2020 02:00:00 PM EST [facility] Name Value Range Interpretation Code Description Data Deysi rce(s) Supporting Document(s) SARS coronavirus 2 RNA [facility] This lab was ordered by [facility] and reported by [facility]. ID Date Data Source [id number] 07/02/2020 07:54:00 AM EST [facility] ([facility]) Name Value Range Interpretation Code Description Data Deysi rce(s) Supporting Document(s) Laboratory test finding (navigational concept) Laboratory test result [facility] ([facility]) ID Date Data Source [id number] 05/31/2020 02:54:00 PM EDT [facility] Measurements & CalculationsHeight: 67 inches (5 ft. 7 in.) 170.18 cm Weight: 230.2 pounds 104.64 kg Body Mass Index (BMI): 36.18BMI Interpretation: ObeseBody Surface Area (BSA): 2.15Weight Management Education Done (Nutrition/Physical Activity)Vital SignsTemperature: 98FPulse Rate: 87 beats/minuteRespiratory Rate: 16 respiratio ns/minuteBlood Pressure: 144/78 O2 Saturation: 100% Vital Signs performed by: Patricia Ellis MA, May 31, 2020 3:03 PMVital Signs performed by: Patricia Ellis MA, May 31, 2020 3:03 PMVaccines Administered/Entered:Vaccination Group: InfluenzaSeries: 2Vaccination: Flulaval Quadrivalent Intramuscular Suspension Prefilled Syringe 0.5 MLMfr / Lot# / Exp.Date: 360Learning / 94H24 1Amt. Given / Route / Site: 0.5 mL / IM / Left DeltoidNDC / CVX: [id number] / 150Administered Date: 05/31/2020 16:25VFC Eligibility: Not VFC EligibleVIS Date: 03/27/2019VIS Given / VIS Given On: Yes / 05/31/2020Comments: Administered by: Tamiko Lynn LPN Initial Intake Information From: patientRoom #: 9Infectious Disease / Travel ScreeningRecent travel for you or any close contacts? NoHave you had any close contact with anyone diagnosed with or under investigation for COVID-19 (coronavirus)? NoFever? NoRespiratory symptoms: cough, cold, congestion, shortness of breath, difficulty breathing? NoLoss of smell? NoLoss of taste? NoSmoking, Tobacco, Vaping or Smoke Exposure StatusSmoke Status: current some day smokerTobacco Use: YesAdv to Quit: YesDo you vape? NoPassive Smoke Exposure: NoMenstrual HistoryLast Menstrual Period (LMP): 05/17/2020LMP History: DefiniteAny possibility of ? NoComments: tubal ligationHealthcare HistorySince your last office visit...Have you been admitted to the hospital? NoHave you been to an emergency room (ER) or urgent care clinic? [place] [facility]20Emergency room (ER) or urgent care date reported today: 12/15/2019Have you seen another healthcare provider? No - cardioHave you seen a dentist? Yes - ncfhcIntake performed by: Patricia Ellis MA, May 31, 2020 2:57 PMRate Your HealthIn general, would you say your health is? Very GoodPain AssessmentAre you currently having any pain which... You would like your provider to address? No Affects your activity level? NoDepression Screening - PHQ-2Over the last two weeks, have you... Had little interest or pleasure in doing things? Not at all Been feeling down, depressed, or hopeless? Not at all PHQ-2 Score: 0Anxiety Screening - BRIANNA-2Over the last two weeks, have you been... Feeling nervous, anxious, or on edge? Not at all Unable to stop or control worrying? Not at all BRIANNA-2 Score: 0Food InsecurityWithin the past year...Did you worry whether your food would run out before you got money to buy more? Never trueWas there a time when the food you bought didn't last and you didn't have money to get more? Never trueScreening, Brief Intervention, & Referral to Treatment (SBIRT)Pre-Screening Questions How many times have you have 4 or more drinks in a day? 0How many times have you used an illegal drug or used a prescription medication for a non-medical reason? 0Performed by: Patricia Ellis MA, May 31, 2020 2:58 PMPatient History Medical History:bipolardepressionAnxietySurgical History:tubal ligationleg surgeryMole removalcarpel tunnel right wristFamily History:Cancer - Ovarian (Paternal Grandmother)Heart disease (Maternal Grandfather) lung cancer( mother) Social/Personal History:Smoking History:Patient currently smokes every day.Patient has been counseled to quit. Age of First Use: 26Advised to Quit/Tobacco Education: YesChief Complaintfollow-up visit labs room 9History of Present Illness (HPI)45 YO female here for lab follow up. Pt needs refills on iron, trazodone, and vitamin D. Pt would like a flu vaccine today. Pt states trying to maintain healthy diet and physical activities but skips meals frequently. Pt states still smoking 1-5 cigarettes daily. Pt denies alcoholism. Pt denies illicit drug use. HPI performed by: Gustavo ALFRED, May 31, 2020 3:50 PMTransitions of Care InboundProblem ReviewProblem List was review ed and/or updated during this visit.Medication Reconciliation & ReviewMedication List was reviewed and/or updated during this visit, including review of any [id number] medications, herbal therapies, and/or supplements.Allergy ReviewAllergy List was reviewed and/or updated during this visit.Adult Preventive CareProvider Calculated and Reviewed all Clinical Protocols for patient today. Screening Tobacco Screening: Smoking Status: current some day smoker (05/31/2020) Tobacco Use: Currently (05/31/2020) Advised to Quit: Yes (05/31/2020)Labs/Meds/Other Counseling-Nutrition and Physical Activity:BMI Interpretation: Obese (05/31/2020) Counseling: Done (05/31/2020) Physical Activity: Done (05/31/2020)Review of Systems General: Denies loss of appetite, chills, dizziness, fatigue, fever, continued fever, headache, feeling ill, sweats, night sweats, sleep disturbances, weight loss. Eyes: Denies blurring of vision, double vision, irritation, discharge, vision loss, eye pain, eye swelling, droopy eyelid, sensitivity to light, redness, itching. Ears/Nose/Throat: Denies earache, ear discharge, ringing in ears, decreased hearing, nasal congestion, nosebleeds, runny nose, sore throat, hoarseness, difficulty swallowing, dry mouth, tooth pain, bleeding gums, swollen glands. Cardiovascular: Denies chest pain, palpitations, feeling faint, trouble breathing w/exertion, SOB upon lying down, SOB at night, peripheral edema, elevated blood pressure, decreased heart rate. Respiratory: Denies cough, difficulty breathing, shortness of breath, excessive sputum, coughing up blood, wheezing, chest pain. Breast: Complains of tenderness, nipple discharge. Denies discoloration, breast changes, breast lump. following with breast specialist. Gastrointestinal: Denies nausea, vomiting, diarrhea, constipation, blood in stool, heartburn. Genitourinary: Denies urinary incontinence, pain with urination, burning with urination, urinary frequency, urinary hesitancy, urinary urgency, urinary urgency at night, incomplete emptying, blood in urine. Musculoskeletal: Denies back pain, joint pain, leg pain, other pain-see comments, joint swelling, body aches, muscle aches, muscle cramps, muscle weakness, stiffness, recent injury. Skin: Denies rash, hives, redness, itching, dryness, nail changes, suspicious lesions, athlete's foot, rash on palms, rash on bottom of feet. Neurologic: Denies muscle impairment, weakness, numbness/tingling, seizures, slurred speech, feeling faint, tremors, vertigo, paralysis on one side, paralysis on both sides. Psychiatric: Denies depression, anxiety, memory loss, mental disturbance, suicidal ideation, homicidal ideation, hallucinations, paranoia, feeling stressed, hearing voices. Endocrine: Denies cold intolerance, heat intolerance, excessive thirst, excessive hunger, excessive urination, weight loss, weight gain. Heme/Lymphatic: Denies abnormal bruising, bleeding, enlarged lymph nodes. Allergic/Immunologic: Denies hives, swelling, hay fever, persistent infections, HIV/STI exposure. Physical ExamGeneral Appearance: well nourished, well hydrated, no acute distressEyes, External: conjunctivae and lids normal, EOMIRespiratory, Auscultation: clear to auscultation bilaterally; no rales, rhonchi, or wheezesRespiratory, Effort: no intercostal retractions or use of accessory musclesCardiovascular, Auscultation: S1, S2 audible; no murmur, rub, or gallop; RRRPeripheral Circulation: no clubbing, cyanosis, edema, or varicositiesAbdomen: soft, non-tender, no masses, bowel sounds normalGait & Station: normalSkin, Inspection: no rashes, lesions, or ulcerationsOrientation: oriented to time, place, and personMood & Affect: no depression, anxiety, or agitationJudgment & Insight: intactCare Management Plan Transitions of CareInboundRate Your HealthIn general, would you say your health is? Very GoodAssessment & Plan Problems:Added: Occult blood in stools (ICD-792.1) (ICD10- R19.5) Assessment: Instructions: Fit test positive. Will refer to GI for further eval.Vaccination (ICD-V05.9) (XHZ00-W38) Assessment: Instructions: Flu vaccine given today.Assessed:Anemia, unspecified (VEP39-T86.9) Assessment: Instructions: HGB 10.7. RBC 3.78. We will refer you to us customs and border officer for further eval. Please continue iron medication for now. Please try to maintain adequate nutrition. Please try to maintain adequate intake of water daily.Other iron deficiency anemias (RYC57-P65.8) Assessment: Instructions: Iron level stable at this time. May continue iron medication for now. Please continue healthy diet and physical activities.Person consulting for explanation of examination or test findings (ICD-V65.8) (XOI62-C24.2) Assessment: Instructions: We have reviewed your lab results with you today.Insomnia, unspecified (PAJ34-E87.00) Assessment: Instructions: Trazodone refilled for you todayNicotine dependence, cigarettes, uncomplicated (EFC54-A37.210) Assessment: Instructions: Please continue to try to cut back on your smoking with a goal to quit.Needs influenza immunization (ICD-V04.81) (EUH77-Q69.3) Assessment: Instructions: You have had your flu vaccine today. . there may be soreness at the injection site. Please report any adverse reactions.Hypertension (ICD-401.9) (CXV03-O05) Assessment: Pt states didnt take BP med today as yet. Instructions: Your Blood pressure is elevated today. Please continue medication as prescribed. Please continue lifestyle changes to include healthy diet and physical activities. Please try to avoid added sodium in your diet. Please try to avoid processed foods.Patient Instructions/Care Plan: Occult blood in stools: Fit test positive. Will refer to GI for further eval.Anemia- unspecified: HGB 10.7. RBC 3.78. We will refer you to [place] customs and border officer for further eval. Please continue iron medication for now. Please try to maintain adequate nutrition. Please try to maintain adequate intake of water daily.Other iron deficiency anemias: Iron level stable at this time. May continue iron medication for now. Please continue healthy diet and physical activities.Person consulting for explanation of examination or test findings: We have reviewed your lab results with you today.Insomnia- unspecified: Trazodone refilled for you todayNicotine dependence- cigarettes- uncomplicated: Please continue to try to cut back on your smoking with a goal to quit.Needs influenza immunization: You have had your flu vaccine today. . there may be soreness at the injection site. Please report any adverse reactions.Vaccination: Flu vaccine given today.Hypertension: Your Blood pressure is elevated today. Please continue medication as prescribed. Please continue lifestyle changes to include healthy diet and physical activities. Please try to avoid added sodium in your diet. Please try to avoid processed foods. Plan developed in collaboration with patient and/or familyMedications:CHLORTHALIDONE 25 MG ORAL TABLETFERROUS SULFATE 325 (65 FE) MG ORAL TABLETTRAZODONE HCL 50 MG ORAL TABLETVITAMIN D (ERGOCALCIFEROL) 95566 UNIT ORAL CAPSULEMedication Changes:Refilled:FERROUS SULFATE 325 (65 FE) MG ORAL TABLET-take one tablet by mouth twice daily Qty: 60[Tablet] Refills: 2 Method: ElectronicTRAZODONE HCL 50 MG ORAL TABLET-take one tablet by mouth daily as needed at bedtime. Qty: 30[Tablet] Refills: 3 Method: ElectronicAllergies:No Known Allergies (updated 12/17/2019) Orders:Gastroenterology Consult [CPT-90295] Hematology Consult [CPT-74226] COMP METABOLIC PANEL [CPT-69535] CBC W/DIFF [CPT-16243] IRON [CPT-50090] FERRITIN [CPT-71323] Administration of Influenza Virus Vaccine [CPT- G0008] 56811 - Immo Admin (under 19 yrs), 1st Toxoid [CPT-08097] FluLaval Quadrivalent, preservative free [CPT-30927] Adult - Ofc Vst, EST, Level IV [CPT- 22047] Follow-Up Return to clinic: 6-8 weeks for follow up. Clinical Visit Pan olson CompletedMedications:TRAZODONE HCL 50 MG ORAL TABLET (TRAZODONE HCL) take one tablet by mouth daily as needed at bedtime. #30[Tablet] x 3 Route:ORAL Entered and Authorized by: Gustavo ALFRED Method used: Electronically to [facility] (retail) [address] [place] [address] Fax: Note to Pharmacy: Route: ORAL; Indications: INSOMNIA, UNSPECIFIED RxID: [id number] SULFATE 325 (65 FE) MG ORAL TABLET (FERROUS SULFATE) take one tablet by mouth twice daily #60[Tablet] x 2 Route:ORAL Entered and Authorized by: Gustavo ALFRED Method used: Electronically to [facility] (retail) [address] [place] [address] Fax: Note to Pharmacy: Route: ORAL; Indications: ANEMIA, UNSPECIFIED;OTHER IRON DEFICIENCY ANEMIAS RxID: [id number] signed by Gustavo ALFRED on 06/02/2020 at 3:06 AM Name Value Range Interpretation Code Description Data Deysi rce(s) Supporting Document(s) ID Date Data Source [id number] 05/24/2020 08:47:09 AM EDT [facility] Labs In-House Blood TestsDate/Time Colle cted: May 24, 2020 8:05 AMTest Result Reference Range Normal ValueComments: taken from josias larson, tolerated well.Ashley Garcia, May 24, 2020 8:47 AMAssessment & Plan Orders:[id number] Vst-Est Level I [CPT-09248] 04668 - Venipuncture [CPT- 51533] Name Value Range Interpretation Code Description Data Deysi rce(s) Supporting Document(s) ID Date Data Source [id number] 05/24/2020 08:05:00 AM EDT [facility] Name Value Range Interpretation Code Description Data Deysi rce(s) Supporting Document(s) HCT 34.7 % 36.0-47.0 L [facility] HGB 10.7 g/dL 12.0-15.5 L [facility] MCH 30.8 G/DL pg 32.0-36.5 L [facility] MCHC 28.3 PG % 27.0-33.0 N [facility] PLATELETS 308 10 10*3/mm3 150-450 N [facility] RBC 3.78 10 10*6/mm3 4.00-5.40 L [facility] RDW 13.2 % 11.5-14.5 [facility] WBC TOTAL 5.7 4.0-10.0 [facility] ID Date Data Source [id number] 05/24/2020 08:05:00 AM EDT [facility] Name Value Range Interpretation Code Description Data Deysi rce(s) Supporting Document(s) VIT D25 TOT 25.9 ng/mL 30.0-100.0 L [facility] BG FASTING 99 mg/dL 70-100 N [facility] ID Date Data Source [id number] 04/12/2020 01:44:13 PM EDT [facility] Measurements & CalculationsHeight: 67 inches 170.18 cm Weight: 231 pounds 6 oz. 105.17 kg Body Mass Index (BMI): 36.37BMI Interpretation: ObeseBody Surface Area (BSA): 2.15Weight Management Education Done (Nutrition/Physical Activity)Vital SignsTemperature: 98.6FPulse Rate: 100 beats/minuteRespiratory Rate: 14 respirations/minuteBlood Pressure: 126/76 Vital Signs performed by: Ashley Garcia, April 12, 2020 1:47 PMVital Signs performed by: Ashley Garcia, April 12, 2020 1:47 PMInitial Intake Information From: patientRoom #: 8Infectious Disease / Travel ScreeningRecent travel for you or any close contacts? NoHave you had any close contact with anyone diagnosed with or under investigation for COVID-19 (coronavirus)? NoFever? NoRespiratory symptoms: cough, cold, congestion, shortness of breath, difficulty breathing? NoLoss of smell? NoLoss of taste? NoSmoking, Tobacco, Vaping or Smoke Exposure StatusSmoke Status: current some day smokerTobacco Use: YesDo you vape? NoPassive Smoke Exposure: NoMenstrual HistoryLast Menstrual Period (LMP): 04/02/2020Any possibility of ? NoHealthcare HistorySince your last office visit...Have you been admitted to the hospital? NoHave you been to an emergency room (ER) or urgent care clinic? [place] [facility]20Have you seen another healthcare provider? Yes - cardioHave you seen a dentist? Yes - ncfhcIntake performed by: Ashley Garcia, April 12, 2020 1:49 PMRate Your HealthIn general, would you say your health is? Very GoodPain AssessmentAre you currently having any pain which... You would like your provider to address? No Affects your activity level? NoDepression Screening - PHQ-2Over the last two weeks, have you... Had little interest or pleasure in doing things? Not at all Been feeling down, depressed, or hopeless? Not at all PHQ-2 Score: 0Anxiety Screening - BRIANNA-2Over the last two weeks, have you been... Feeling n ervous, anxious, or on edge? Not at all Unable to stop or control worrying? Not at all BRIANNA-2 Score: 0Food InsecurityWithin the past year...Did you worry whether your food would run out before you got money to buy more? Never trueWas there a time when the food you bought didn't last and you didn't have money to get more? Never trueScreening, Brief Intervention, & Referral to Treatment (SBIRT)Pre-Screening Questions How many times have you have 4 or more drinks in a day? 0How many times have you used an illegal drug or used a prescription medication for a non-medical reason? 0Performed by: Ashley Garcia, April 12, 2020 1:51 PMPatient History Medical History:bipolardepressionAnxietySurgical History:tubal ligationleg surgeryMole removalcarpel tunnel right wristFamily History:Cancer - Ovarian (Paternal Grandmother)Heart disease (Maternal Grandfather) lung cancer( mother) Social/Personal History:Smoking History:Patient currently smokes every day.Patient has been counseled to quit. A ge of First Use: 27Chief ComplaintER follow up leg numbnessHistory of Present Illness (HPI)44 yo female presents for ED follow up. Was seen in the ED for leg numbness secondary to anemia after stopping her iron supplement. Her iron deficiency anemia is believed to be secondary to surgical blood loss and heavy menses. Symptoms have since resolved after restarting iron. Feeling well today. Recently completed her menstrual cycle. Has had heavy menses for 1 year. Would like QA ENGINEER consult to discuss treatment options. Due for repeat H/H and iron studies. Transitions of Care InboundProblem ReviewProblem List was reviewed and/or updated during this visit.Medication Reconciliation & ReviewMedication List was reviewed and/or updated during this visit, including review of any xkvb-nku-nlimmdu medications, herbal therapies, and/or supplements.Allergy ReviewAllergy List was reviewed and/or updated during this visit.Adult Preventive CareProvider Calculated and Reviewed all Clinical Protocols for patient today. Labs/Meds/Other Counseling-Nutrition and Physical Activity:BMI Interpretation: Obese (04/12/2020) Counseling: Done (04/12/2020) Physical Activity: Done (04/12/2020)Review of Systems General: Complains of fatigue. Denies loss of appetite, chills, dizziness, fever, continued fever, headache, feeling ill, sweats, night sweats, sleep disturbances, weight loss. Eyes: Denies blurring of vision, double vision, irritation, discharge, vision loss, eye pain, eye swelling, droopy eyelid, sensitivity to light, redness, itching. Cardiovascular: Denies chest pain, palpitations, feeling faint, trouble cynthia thing w/exertion, SOB upon lying down, SOB at night, peripheral edema, elevated blood pressure, decreased heart rate. Respiratory: Denies cough, difficulty breathing, shortness of breath, excessive sputum, coughing up blood, wheezing, chest pain. Gastrointestinal: Denies nausea, vomiting, bleeding, burning, itching, irritation, cramps, diarrhea, bloody diarrhea, watery diarrhea, constipation, pain or discomfort, feeling any lumps or bumps, pain with BM, pain during receptive anal sex, change in bowel habits, fecal incontinence, abdominal pain, blood in stool, black or tarry stools, jaundice, heartburn, urge to defecate. Genitourinary: Complains of heavy menstrual period. Denies urinary incontinence, pain with urination, burning with urination, urinary frequency, urinary hesitancy, urinary urgency, urinary urgency at night, incomplete emptying, blood in urine, absence of menstrual period, prolonged menstrual period, pelvic pain, abnormal vaginal bleeding, painful intercourse, vaginal discharge, vaginal sores, vaginal itching, genital foul odor, genital sores, genital burning, genital itching, genital warts, anal discharge, anal sores, anal warts. Neurologic: Denies muscle impairment, weakness, numbness/tingling, seizures, slurred speech, feeling faint, tremors, vertigo, paralysis on one side, paralysis on both sides. Physical ExamGeneral Appearance: well nourished, well hydrated, no acute distressEyes, External: conjunctivae and lids normal, EOMIRespiratory, Auscultation: clear to auscultation bilaterally; no rales, rhonchi, or wheezesRespiratory, Effort: no intercostal retractions or use of accessory musclesCardiovascular, Auscultation: S1, S2 audible; no murmur, rub, or gallop; RRROrientation: oriented to time, place, and personMood & Affect: no depression, anxiety, or agitationCare Management Plan Transitions of CareInboundRate Your HealthIn general, would you say your health is? Very GoodAssessment & Plan Problems:Added: Menorrhagia (ICD-626.2) (WSU15-Q70.0) Assessment: will get into QA ENGINEER for consult. last pap was normal. [facility]erral to [facility] initiated.Assessed:Other iron deficiency anemias (DHS14-R35.8) Assessment: Labs ordered. Assume levels should be trending upward as her symptoms are resolving. Discussed balanced diet and importance of compliance with iron supplementation. QA ENGINEER consult planned as heavy menstrual bleeding may be cause. Will also get FOBT for completeness to r/o any GI bleeding.Assessment not Saved Other iron deficiency anemias (HUZ67-U26.8): Comment OnlyLabs ordered. Assume levels should be trending upward as her symptoms are resolving. Discussed balanced diet and importance of compliance with iron supplementation. QA ENGINEER consult planned as heavy menstrual bleeding may be cause. Will also get FOBT for completeness to r/o any GI bleeding. Discussed s/s that would warrant ED eval.Medications:CHLORTHALIDONE 25 MG ORAL TABLETFERROUS SULFATE 325 (65 FE) MG ORAL TABLETTRAZODONE HCL 50 MG ORAL TABLETVITAMIN D (ERGOCALCIFEROL) 74139 UNIT ORAL CAPSULEAllergies:No Known Allergies (updated 12/17/2019) Orders:Adult - Ofc Vst, EST, Level III [CPT-59356] CBC W/DIFF [CPT-69008] IRON [CPT-67013] FERRITIN [CPT-30025] BLOOD OCCULT FECAL HGB DETER IA QUAL FECES 1-3 [CPT-45838] Dry House Attendant [CPT-42012] Follow-Up Return to clinic: pending labs Additional Follow-Up: will contact patient with lab results and plan for follow up. Labs In-House Blood TestsDate/Time Collected: April 12, 2020 2:25 PMTest Result Reference Range Normal ValueComments: taken from left ac, tolerated well.Ashley Radha, April 12, 2020 3:06 PM Name Value Range Interpretation Code Description Data Deysi rce(s) Supporting Document(s) ID Date Data Source [id number] 04/08/2020 04:54:00 PM EDT [facility] Name Value Range Interpretation Code Description Data Deysi rce(s) Supporting Document(s) BG FASTING 93 mg/dL 70-100 N [facility] ID Date Data Source [id number] 04/08/2020 04:54:00 PM EDT [facility] Name Value Range Interpretation Code Description Data Deysi rce(s) Supporting Document(s) HCT 30.5 % 36.0-47.0 L [facility] HGB 9.9 g/dL 12.0-15.5 L [facility] MCH 32.5 G/DL pg 32.0-36.5 N [facility] MCHC 28.9 PG % 27.0-33.0 N [facility] PLATELETS 275 10 10*3/mm3 150-450 N [facility] RBC 3.42 10 10*6/mm3 4.00-5.40 L [facility] RDW 13.2 % 11.5-14.5 N [facility] WBC TOTAL 6.3 4.0-10.0 N [facility] ID Date Data Source [id number] 03/29/2020 12:51:40 PM EDT [facility] Name Value Range Interpretation Code Description Data Deysi rce(s) Supporting Document(s) &PDF [facility] UMURNf0iCnJPEdZu25/LWWzuAEXhz4WeGVtfANi5JCmsXPTjZ1AukAvuRVAKO0KWUPHQE0BXDcVXKsaM wJy [file] ICAgICAgICAgICAgICAgICAgICAgICAgICAgICAgICAgICAgICAgICAgICAgICAgICAgICAgICAgICAg ICAgICAgICAgICAgICAgICAgICAgICAgICAgICAgIC AgICAgDQogICAgICAgICAgICAgICAgICAgICAgICAgICAgICAgICAgICAgICAgICAgICAgICAgICAgIC AgICAgICAgICAgICAgICAgICAgICAgICAgICAgICAgICAgICAgICAgICAgICAgDQogICAgICAgICAgIC AgICAgICAgICAgICAgICAgICAgICAgICAgICAgICAg ICAgICAgICAgICAgICAgICAgICAgICAgICAgICAgICAgICAgICAgICAgICAgICAgICAgICAgICAgDQog ICAgICAgICAgICAgICAgICAgICAgICAgICAgICAgICAgICAgICAgICAgICAgICAgICAgICAgICAgICAg ICAgICAgICAgICAgICAgICAgICAgICAgICAgICAgIC AgICAgICAgDQogICAgICAgICAgICAgICAgICAgICAgICAgICAgICAgICAgICAgICAgICAgICAgICAgIC AgICAgICAgICAgICAgICAgICAgICAgICAgICAgICAgICAgICAgICAgICAgICAgICAgDQogICAgICAgIC AgICAgICAgICAgICAgICAgICAgICAgICAgICAgICAg ICAgICAgICAgICAgICAgICAgICAgICAgICAgICAgICAgICAgICAgICAgICAgICAgICAgICAgICAgICAg DQogICAgICAgICAgICAgICAgICAgICAgICAgICAgICAgICAgICAgICAgICAgICAgICAgICAgICAgICAg ICAgICAgICAgICAgICAgICAgICAgICAgICAgICAgIC AgICAgICAgICAgDQogICAgICAgICAgICAgICAgICAgICAgICAgICAgICAgICAgICAgICAgICAgICAgIC AgICAgICAgICAgICAgICAgICAgICAgICAgICAgICAgICAgICAgICAgICAgICAgICAgICAgDQogICAgIC AgICAgICAgICAgICAgICAgICAgICAgICAgICAgICAg ICAgICAgICAgICAgICAgICAgICAgICAgICAgICAgICAgICAgICAgICAgICAgICAgICAgICAgICAgICAg ICAgDQogICAgICAgICAgICAgICAgICAgICAgICAgICAgICAgICAgICAgICAgICAgICAgICAgICAgICAg ICAgICAgICAgICAgICAgICAgICAgICAgICAgICAgIC FdBNFdCOJdGYGgAGMnSMa5W1tmQAShBSTjLB2gWMg4Mg3+LDpELuLjMZA6jaSuiR4KZC4oa8QpLWcbII Jee5XoWIv4UT5AJHHlWKtwAU1FHSwjsz7YBQCtHXSpdTIHy8upAfPfNWS3VGHqTvurPY3MQSBqF3qszv BbIDUgMCBSIDcgMCBSIDkgMCBSIDExIDAgUiBdDQog PC5Zj8FgaCT6EHf+Xl3VMA1bm0HgMTdvEOFxGM8rtv0VNYnOXxFtY5WbcnO8CLRrCJHtHl2OMGTzEKZe sFHvAxWxPMDLYzWbQ4UzpT57XSBKBm1+IDlgofMaKsoHBuSlJKSlm4TxVPl4WH3ADVTiYDs6rJVcIJ3i iXVjmWFcNWtwIZ8RTLF4XMubNaSaHWJuU8yRAqUzWS R4ITCryIaiEY6LWzNpN0OdzxWgnVHsDETmNSFAYy7+WQmlldQkQliYFbKtPSClg7GuLXm0JJ0PJVQpHA elED5FLJQysA3kOGrgTK0SMmSiXXCyCVZLKfSbA55qnWGiEMc2O0WoTvQwIZDvObwoQWFgZPpkUeMyIC MgWyBdDQogID4+ID4+JXbxWG7PACfzbvKlOXPdQu2J DBHwHMKlHQ6nRXYuTMZxB5I7pXyvUGYZErDeD9fgojkgIR8oTOAdI880sOgkyaMdAKIsEFAiHi9UBJBf RYV3UHQfoDDsJyCnZCALEKfwHX0FaQZvRUT1yC5hXIrlGXUxBEQbW7sAHtKkwBosJH04rHnkonMswQWx DQo+De5SKH0kx8XoTYm0jzOfAAelNWJ2WJsrVBNbCM UqZACgKOC2ZHK4UBZQUeZcPZTtCFVjSSlxQGKbXYCekn5SKPCiEUF9WZg6FvBvBNBbKMZmIAlgKKYaJN CfKoE7CNJcDKAoRC1CQkNpSNTyUZLjSDTdUCUmRREtyz6YAFKjZGBuIyUdSBInFZDpTAPbCPivCXRhSO WlFLV4AJFzMSRlYK3LYqUfGCJmVEZ0UhErYJShWEGk sh5IHEAuUOJhFNgtYYPlDOBnDMTrDPjkHNJqUWT4CTWdDTSfRGFmPW5FAzPpTRUtPEStMrOfALIpHOMo cz9YAVEcIXQyDaR2NuJhQDKcKMIaNHtkHDDgYIY2IZP4RSKtZWGyOZ8BEsSbGYGfTZq0ADskLODlDALu pz8FEKLlQPVcOEhxSuTzEMXdWWUxPSlkUXUrFWW6IW n0ECOoLUVnJT9RQyOoSFFwNPp6RBzoUJFwMVKfqd7XIHBeVQUvTCY3CWLyVYXeNVDmAFfiTSVvOHStBx Q1XXBjFGElFB2XKgXmEMVxHLOyTBVtEZHuVVQxdb7YEIIlNIUnAFYiKJOlONZzPMEfFTsmUJObCKW8Pv ByAVKjVPRkDQ5JGtVeRSEhJVF4GlObBMNxFQQide0T PPMcYSNeTzGoUJQhVCFcAXFgSTorIBHdFVO3HZC5TBFlIJZmCS2USgAbFWXmAbU2NiUjIINfHPCyab9J XIEdOLRxSrBtQIKvPACcCYGmXLdnCDMmWDPbFQZ1ZPOyDINuNH9DWqJbKWKhSMZfROfqQWPrGGAnmj1Y MUNjROM9WVf0NHUtLKOcUXVvFEtnBYMoPWEoAic3ZN QsSQHvNC4STvPxDUMhLuH7QmWhDMXuQNFoft6UWLPySMG5DEtgIjIcJTAaCSAwWCphSCAqNFRoARJ2PS OaQOIyPT2GCgJaPDzcDAUKLcv6UXpyD8o5ENTwJW9GR0Ymc1EzAmIbICUCHDpvZE2vngUxWLXkWf7EX3 yIHeqlEremO9CmOyKqWoKqRnB1SES0T2FhNSH7OKDa VWB0Ot6zHTFoBFZ9ZkZ2FANbIYT8GIvgBNSeLjKpTfx5TtQkYpryYoEtEM8TVp3KFkN0VJU5rBJjNz4O EtHuKXiPPhAtZD7TMOu= ID Date Data Source [id number] 03/29/2020 11:48:12 AM EDT [facility] NT INFORMATIONPatient MRN Name Date of Age Gend*PT [id number] TerrancewallacehenriettaKristine obregon*1975 44 years F HOPPT Location Admission Date/Time Visit ID Attending [id number] 03/29/20 1003 --- Anny Shearer MD([id number]) EPI ID CSN Admitting Provider [id number] Anny Shearer MD([id number])Cardiology Admission History & Physical ExamGeorlevi CarrollMRN: [id number]: 1975[facility] Physician: SAMY Ayersode Status: Full CodeChief Complaint: Chest painPrincipal Diagnosis: Presumptive coronary artery diseaseHPI:44-year-old lady with a chest pain syndrome. She had a stress test when she hadexaggeration of ST segment shifts and reproduction of chest pain. Referred forcardiac catheterization. Has had a history of hypertension and tobacco usage.Has had tubal ligations and would thus unlikely to be . Still hasmenses.Past Medical His tory:Diagnosis Date Arthritis HypertensionPast Surgical History:Procedure Laterality Date CARPAL TUNNEL RELEASE EYE SURGERY FRACTURE SURGERY SKIN BIOPSY TUBAL LIGATIONCurrent Medications:Current Facility-Administered Medications: sodium chloride 0.9% (NS) infusion, , Intravenous, Continuous, Anny Johnson MD, Last Rate: 100 mL/hr at 03/29/20 1050Medications:Medications Prior to AdmissionMedication Sig amLODIPine (NORVASC) 2.5 MG tablet Take 1 tablet (2.5 mg total) by mouth daily aspirin EC 81 MG EC tablet Take 81 mg by mouth daily clopidogrel (PLAVIX) 75 MG tablet Take 75 mg by mouth daily ranolazine (RANEXA) 500 MG 12 hr tablet Take 1 tablet (500 mg total) by mouth2 (two) times a day traZODone (DESYREL) 100 MG tablet Take 100 mg by mouth nightlyAllergies: Patient has no known drug allergies.No family history on file.Social HistoryTobacco Use Smoking status: Current Every Day Smoker Types: Cigarettes Smokeless tobacco: Never UsedSubstance Use Topics Alcohol use: Not Currently Drug use: NeverReview of SystemsRespiratory: Positive for chest tightness. Negative for shortness of breath.Vitals: 03/29/20 1032BP: 127/83Pulse: 95SpO2: 99%Physical ExamConstitutional: She is oriented to person, place, and time. She appearswell-developed and well-nourished.HENT:Head: Normocephalic and atraumatic.Eyes: Conjunctivae and EOM are normal.Neck: Neck supple. Carotid bruit is not present.Cardiovascular: Normal rate, regular rhythm and normal heart sounds.No murmur heard.Pulmonary/Chest: Effort normal and breath sounds normal.Musculoskeletal: She exhibits no edema.Neurological: She is alert and oriented to person, place, and time.Skin: Skin is warm and dry. No rash noted.Psychiatric: She has a normal mood and affect.Labs, Imaging, and other Diagnostics:Diagnostic tests reviewed for today's visit:Admission on 03/29/2020Component Date Value Ref Range Status POC Beta HCG 03/29/2020 <5.0 IU/L FinalEKG from today and Recent labsImpression and Recommendations:Active Problems: Chest pain Essential hypertension, benign Abnormal cardiovascular function -htnw-aju lady with a chest pain syndrome and an abnormal plain treadmill testfollowed by a nuclear stress test that suggested inferior ischemia. Referredfor cardiac catheterization. Risks, benefits and alternatives were explained tothe patient is willing to proceed. Hlkec-bq-qreb beta-hCG showed no .Signature: Anny Shearer, MDDate: March 29, 2020Time: 11:44 AM Name Value Range Interpretation Code Description Data Deysi rce(s) Supporting Document(s) ID Date Data Source [id number] 03/29/2020 10:58:21 AM EDT [facility] Name Value Range Interpretation Code Description Data Deysi rce(s) Supporting Document(s) POC [facility] <5.0 IU/L [facility] HUMPHRIES INTERPRETATION:<5.0 NEGATIVE5.0- 25.0 INDETERMINATE>25.0 POSITIVELEVELS BETWEEN 5 AND 25 IU/L MAY INDICATEEARLY AND SHOULD BE REPEATED BARTOLO BLOOD SAMPLE AFTER 48 HOURS.PERFORMED BY [facility] CLINICAL STAFF ID Date Data Source [id number] 03/29/2020 10:31:35 AM EDT [facility] Name Value Range Interpretation Code Description Data Deysi rce(s) Supporting Document(s) EKG [facility] KCKTIu4xHgVFMqMfd5FqBdUqWGWbUS2lzdn7S1D1uCJmV4HuoWQff9eyQ6KyN8FcMYMzPPZGMT7BuKMi jb2 [file] /facility supervisor+d4AlRrqucpozSEjW/XhACX22SngMOWCyVa8n9 [file] 40sgpb6pwpb37I5lGAv8TE45lix7g3N6ILUZ/RCeaW78+offset label rewinder+Bs91ysthcxP+UOpRy2YV2+sjH8mcPK7 [file] XRJf0XVO658nJ88j0nyiBp0TzN25SoDdwrxJfIu+Digital Content Specialist r/JY8l79+vZl0Nw67GGK8aic+gqM3QqfGw+c1o5bzi9fj8fapu+t9/zGWte3A4YRr+/jXeIqfOTquNV6 s73PbheK+76fAIQXL+Bd+NirtAkn+ISzD4AkoKYcoDjXm+AFALFo81daoDCvf0o6J6kIeSKXhmvsu3po oGMHfwOgfpMvXSad5iJi8MJybNbnz+jGWrdflE60lH B5AK0xv+imfjsxAhW61OvmYsxLM5mUH1PF8KO4KNH65AUewHH75QKebPK4JFTqIh6OcpXkLz4SjkRmWk 5EctHtWw3ZvlSfJ57VhbCkO25NfQ9jt61EcG97hkVhagWYE4lcgf6yG27yk0N22ch4gDYvDSHqaIiH1N x7Uwd7Ah64Ep3eI0oT3++NLvcbrjog3RA+Yw7JD4yg k0iyiEoIIpbYZJ56lbP2h7jog/WNhhLB8m3oQrRo67S1P3f09i4t0L5z+ks4SeEctt8dVbsTb2I9lCNz TzatQxQTVxUq9lbwJaXj1q3+434/sYwnGGDkYcsnFmDkMbAnFEDj+1bTrEkM0TrmF0o5bFBQrbJn0zu8 6zLkMh8gcZjrsG7qLMw6GamBrsIdvaeMg/I1mMnN2w x72rZQnNTY3BDtiBa11zhcF0AWhmB9A+8G3N35Z8W72zZ4S1R0m/0pv70/QS710ROAifeJiLyn/lV+Po So4OhkhgREp2912kq27P53bpx/6h1Uu2I23/W+aJ02XnxxaZ6/7+fe5559W/t6786+uxvrr56k5/Ts6r [file] xNQpXps2YAH4PKevIBOAWs== ID Date Data Source [id number] 03/24/2020 12:17:00 PM EDT [facility] Name Value Range Interpretation Code Description Data Deysi rce(s) Supporting Document(s) White Blood Count 7.72 4.0-10.0 [facility] Red Blood Count 4.06 4.0-5.40 [facility]) Hemoglobin 11.7 14.0-18.0 [facility] ([facility]) Platelets 320 150-450 [facility] Hematocrit 36.5 42.0-52.0 [facility] ([facility]) ID Date Data Source [id number] 03/24/2020 09:05:00 AM EDT [facility] Name Value Range Interpretation Code Description Data Deysi rce(s) Supporting Document(s) SARS coronavirus 2 RNA [facility] This lab was ordered by [facility] and reported by [facility]. ID Date Data Source [id number] 03/25/2020 05:07:09 PM EDT [facility] Name Value Range Interpretation Code Description Data Deysi rce(s) Supporting Document(s) SARS-COV-2 [facility] Not DetectedReference range: Not Detecte d This test was developed and its performance characteristics determined by [employer]. This test has not been FDA cleared or approved. This test has been authorized by FDA under an Emergency Use Authorization (EUA). This test is only authorized for the duration of time the declaration that circumstances exist justifying the authorization of the emergency use of in vitro diagnostic tests for detection of SARS-CoV-2 virus and/or diagnosis of COVID-19 infection under section 564(b)(1) of the Act, 21 U.S.C. 360bbb-3(b)(1), unless the authorization is terminated or revoked sooner. When diagnostic testing is negative, the possibility of a false negative result should be considered in the context of a patient's recent exposures and the presence of clinical signs and symptoms consistent with COVID-19. An individual without symptoms of COVID-19 and who is not shedding SARS-CoV-2 virus would expect to have a negative (not detected) result in this assay. Performed At: [facility] [id number] Ok Abreu MD Ph:[phone] ID Date Data Source [id number] 03/23/2020 12:24:00 PM EDT [facility] ([facility]) Name Value Range Interpretation Code Description Data Deysi rce(s) Supporting Document(s) Red Blood Count 3.42 4.30-6.10 [facility] ([facility]) Platelets 281 150-450 [facility] ([facility]) White Blood Count 6.29 4.0-10.0 [facility] ([facility]) Hematocrit 31.0 42.0-52.0 [facility] ([facility]) Hemoglobin 9.9 14.0-18.0 [facility] ([facility]) ID Date Data Source [id number] 03/23/2020 12:24:00 PM EDT [facility] ([facility]) Name Value Range Interpretation Code Description Data Deysi rce(s) Supporting Document(s) [facility] Laboratory test result [facility] ([facility]) ID Date Data Source [id number] 03/23/2020 12:24:00 PM EDT [facility] ([facility]) Name Value Range Interpretation Code Description Data Deysi rce(s) Supporting Document(s) Calcium [Mass/volume] in Serum or Plasma 8.9 [facility] ([facility]) Sodium 136 [facility] ([facility]) Chloride [Moles/volume] in Serum or Plasma 101 [facility] ([facility]) Carbon dioxide, total [Moles/volume] in Serum or Plasma 29 [facility] ([facility]) Blood Urea Nitrogen 8 5-21 [facility] (Ca rdiology [facility]) Glucose 84 70-100 [facility] ([facility]) Potassium [Moles/volume] in Serum or Plasma 3.5 [facility] ([facility]) Creatinine 1.00 0.6-1.5 [facility] ([facility]) Glomerular filtration rate/1.73 sq M.pre dicted [Volume Rate/Area] in Serum or Plasma by Creatinine-based formula (MDRD) Laboratory test result [facility] ([facility]) ID Date Data Source [id number] 03/23/2020 09:00:00 AM EDT [facility] ([facility]) Name Value Range Interpretation Code Description Data Deysi rce(s) Supporting Document(s) Glucose, Fasting 84 mg/dL 70-100 [facility] ([facility]) Glomerular Filtration Rate Laboratory test result [facility] ([facility]) <content>Units are mL/min/1.73 m2</content>
<content></content>
<content>Chronic Kidney Disease Staging per NKF:</content>
<content></content>
<content>Stage I & II GFR >=60 Normal to Mildly Decreased</content>
<content>Stage III GFR 30-59 Moderately Decreased</content>
<content>Stage IV GFR 15-29 Severely Decreased</content>
<content>Stage V GFR <15 Very Little GFR Left</content>
<content>ESRD GFR <15 on CIO</content>
<content></content> Creatinine For GFR 1.00 mg/dL 0.55-1.30 [facility] ([facility]) Blood Urea Nitrogen 8 mg/dL 7-18 [facility] ([facility]) Potassium Serum 3.5 meq/L 3.5-5.1 [facility] ([facility]) Chloride Level 101 meq/L 98-107 [facility] ([facility]) Sodium Level 136 meq/L 136-145 [facility] ([facility]) Carbon Dioxide Level 29 meq/L 21-32 [facility] ([facility]) Anion Gap 6 meq/L 8-16 [facility] Calcium Level 8.9 mg/dL 8.5-10.1 [facility] ([facility]) ID Date Data Source [id number] 03/23/2020 09:00:00 AM EDT [facility] ([facility]) Name Value Range Interpretation Code Description Data Deysi rce(s) Supporting Document(s) White Blood Count 6.3 10 4.0-10.0 [facility] ([facility]) Red Blood Count 3.42 10 4.00-5.40 [facility] ([facility]) Hematocrit 31.0 % 36.0-47.0 [facility] ([facility]) Hemoglobin 9.9 g/dL 12.0-15.5 [facility] ([facility]) Mean Corpuscular Volume 90.6 fl 80.0-96.0 M [facility] ([facility]) Mean Corpuscular Hemoglobin 28.9 pg 27.0-33.0 [facility] ([facility]) Mean Corpuscular HGB Conc 31.9 g/dL 32.0-36.5 [facility] ([facility]) Platelet Count, Automated 281 10 150-450 [facility] ([facility]) Red Cell Distribution Width 13.3 % 11.5-14.5 [facility] ([facility]) Nucleated Red Blood Cell % 0.0 % 0-0 [facility] ([facility]) ID Date Data Source [id number] 03/15/2020 01:10:00 PM EDT [facility] ([facility]) Name Value Range Interpretation Code Description Data Deysi rce(s) Supporting Document(s) Glucose, Fasting 109 mg/dL 70-100 [facility] ([facility]) Blood Urea Nitrogen 11 mg/dL 7-18 [facility] ([facility]) Creatinine For GFR 1.09 mg/dL 0.55-1.30 [facility] ([facility]) Glomerular Filtration Rate Laboratory test result [facility] ([facility]) <content>Units are mL/min/1.73 m2</content>
<content></content>
<content>Chronic Kidney Disease Staging per NKF:</content>
<content></content>
<content>Stage I & II GFR >=60 Normal to Mildly Decreased</content>
<content>Stage III GFR 30-59 Moderately Decreased</content>
<content>Stage IV GFR 15-29 Severely Decreased</content>
<content>Stage V GFR <15 Very Little GFR Left</content>
<content>ESRD GFR <15 on CIO</content>
<content></content> Potassium Serum 3.3 meq/L 3.5-5.1 [facility] ([facility]) Sodium Level 138 meq/L 136-145 [facility] ([facility]) Chloride Level 103 meq/L 98-107 [facility] ([facility]) Anion Gap 7 meq/L 8-16 [facility] Carbon Dioxide Level 28 meq/L 21-32 [facility] ([facility]) Calcium Level 9.0 mg/dL 8.5-10.1 [facility] ([facility]) ID Date Data Source [id number] 03/15/2020 09:15:00 AM EDT [facility] ([facility]) Name Value Range Interpretation Code Description Data Deysi rce(s) Supporting Document(s) Sodium 138 [facility] ([facility]) Calcium [Mass/volume] in Serum or Plasma 9.0 [facility] ([facility]) Carbon dioxide, total [Moles/volume] in Serum or Plasma 28 [facility] ([facility]) Chloride [Moles/volume] in Serum or Plasma 103 [facility] ([facility]) Glucose 109 74-106 [facility] Potassium [Moles/volume] in Serum or Plasma 3.3 [facility] ([facility]) Blood Urea Nitrogen 11 5-21 [facility] ([facility]) Creatinine 1.09 0.6-1.5 [facility] ([facility]) Glomerular filtration rate/1.73 sq M.pre dicted [Volume Rate/Area] in Serum or Plasma by Creatinine-based formula (MDRD) Laboratory test result [facility] ([facility]) ID Date Data Source [id number] 03/01/2020 12:51:35 PM EDT [facility] Measurements & CalculationsHeight: 67 inches 170.18 cm Weight: 233 pounds 105.91 kg Body Mass Index (BMI): 36.62BMI Interpretation: ObeseBody Surface Area (BSA): 2.16Weight Management Education Done (Nutrition/Physical Activity)Vital SignsTemperature: 97.6F 36.44C tympanic Pulse Rate: 93 beats/minuteRespiratory Rate: 16 respirations/minuteBlood Pressure: 124/82 left arm sitting automaticO2 Saturation: 100% Vital Signs performed by: Leonela Montelongo , March 01, 2020 1:00 PMInitial Intake Information From: patientRoom #: 9Infectious Disease / Travel ScreeningRecent travel for you or any close contacts? NoHave you had any close contact with anyone diagnosed with or under investigation for COVID-19 (coronavirus)? NoFever? NoRespiratory symptoms: cough, cold, congestion, shortness of breath, difficulty breathing? NoLoss of smell? NoLoss of taste? NoSmoking, Tobacco, Vaping or Smoke Exposure StatusSmoke Status: current some day smokerTobacco Use: YesAdv to Quit: YesDo you vape? NoPassive Smoke Exposure: YesMenstrual HistoryLast Menstrual Period (LMP): 02/16/2020LMP History: DefiniteHealthcare HistorySince your last office visit...Have you been admitted to the hospital? NoHave you been to an emergency room (ER) or urgent care clinic? NoHave you seen another healthcare provider? Yes - dr garcia/cardio doctorHave you seen a dentist? NoIntake performed by: Leonela Montelongo , March 01, 2020 12:56 PMRate Your HealthIn general, would you say your health is? Very GoodPain AssessmentAre you currently having any pain which... You would like your provider to address? No Affects your activity level? NoDepression Screening - PHQ-2Over the last two weeks, have you... Had little interest or pleasure in doing things? Not at all Been feeling down, depressed, or hopeless? Not at all PHQ-2 Score: 0Anxiety Screening - BRIANNA-2Over the last two weeks, have you been... Feeling n ervous, anxious, or on edge? Not at all Unable to stop or control worrying? Not at all BRIANNA-2 Score: 0Food InsecurityWithin the past year...Did you worry whether your food would run out before you got money to buy more? NoWas there a time when the food you bought didn't last and you didn't have money to get more? NoScreening, Brief Intervention, & Referral to Treatment (SBIRT)Pre-Screening Questions How many times have you have 4 or more drinks in a day? 0How many times have you used an illegal drug or used a prescription medication for a non- medical reason? 0Performed by: Leonela Montleongo , March 01, 2020 12:57 PMPatient History Medical History:bipolardepressionAnxietySurgical History:tubal ligationleg surgeryMole removalcarpel tunnel right wristFamily History:Cancer - Ovarian (Paternal Grandmother)Heart disease (Maternal Grandfather) lung cancer( mother) Social/Personal History:Smoking History:Patient currently smokes every day.Patient has been counseled to quit. Age of First Use: 26Advised to Quit/Tobacco Education: YesNurses Note medication change in cardiac meds, but not sure what it ishydrochlorothiazide believes it is 25 mgChief Vijhfimybslekvtf-fxyf-jjeyql changes in menstral cyleHistory of Present Illness (HPI)44 yo female here today for follow up visit and review of lab results. Pt states seen by breast specialist, plan is to have breast duck surgery done. Requires stress test prior. Pt requesting referral to cardiology for stress test. Pt states still trying to maintain healthy diet and physical activities. Pt states trying to cut back on cigarette smoking. Pt states smoking about 2-3 cigarettes daily. 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 Pt states presently in school persuing Bachelors degree. Pt states was seen by newspaper publisher for annual- Pt states BP med was changed by newspaper publisher to Chlorthalidone- Pt states tolerating well.HPI performed by: Gustavo ALFRED, March 01, 2020 1:37 PMTransitions of Care InboundProblem ReviewProblem List was reviewed and/or upda nury during this visit.Medication Reconciliation & ReviewMedication List was reviewed and/or updated during this visit, including review of any pgpe-lls-cirqcss medications, herbal therapies, and/or supplements.Allergy ReviewAllergy List was reviewed and/or updated during this visit.Adult Preventive CareProvider Calculated and Reviewed all Clinical Protocols for patient today. Screening Tobacco Screening: Smoking Status: current some day smoker (03/01/2020) Tobacco Use: Currently (03/01/2020) Advised to Quit: Yes (03/01/2020)Labs/Meds/Other Counseling-Nutrition and Physical Activity:BMI Inter pretation: Obese (03/01/2020) Counseling: Done (03/01/2020) Physical Activity: Done (03/01/2020)Review of Systems General: Denies loss of appetite, chills, dizziness, fatigue, fever, continued fever, headache, feeling ill, sweats, night sweats, sleep disturbances, weight loss. Eyes: Denies blurring of vision, double vision, irritation, discharge, vision loss, eye pain, eye swelling, droopy eyelid, sensitivity to light, redness, itching. Ears/Nose/Throat: Denies earache, ear discharge, ringing in ears, decreased hearing, nasal congestion, nosebleeds, runny nose, sore throat, hoarseness, difficulty swallowing, dry mouth, tooth pain, bleeding gums, swollen glands. Cardiovascular: Denies chest pain, palpitations, feeling faint, trouble breathing w/exertion, SOB upon lying down, SOB at night, peripheral edema, elevated blood pressure, decreased heart rate. Respiratory: Denies cough, difficulty breathing, shortness of breath, excessive sputum, coughing up blood, wheezing, chest pain. Breast: Complains of tenderness, nipple discharge. Denies discoloration, breast changes, breast lump. Gastrointestinal: Denies nausea, vomiting, diarrhea, constipation. Genitourinary: Denies urinary incontinence, pain with urination, burning with urination, urinary frequency, urinary hesitancy, urinary urgency, urinary urgency at night, incomplete emptying, blood in urine. Musculoskeletal: Denies back pain, joint pain, leg pain, other pain-see comments, joint swelling, body aches, muscle aches, muscle cramps, muscle weakness, stiffness, recent injury. Skin: Denies rash, hives, redness, itching, dryness, nail changes, suspicious lesions, athlete's foot, rash on palms, rash on bottom of feet. Neurologic: Denies muscle impairment, weakness, numbness/tingling, seizures, slurred speech, feeling faint, tremors, vertigo, paralysis on one side, paralysis on both sides. Psychiatric: Denies depression, anxiety, memory loss, mental disturbance, suicidal ideation, homicidal ideation, hallucinations, paranoia, feeling stressed, hearing voices. Endocrine: Denies cold intolerance, heat intolerance, excessive thirst, excessive hunger, excessive urination, weight loss, weight gain. Physical ExamGeneral Appearance: well nourished, well hydrated, no acute distressEyes, External: conjunctivae and lids normal, EOMIRespiratory, Auscultation: clear to auscultation bilaterally; no rales, rhonchi, or wheezesRespiratory, Effort: no intercostal retractions or use of accessory musclesCardiovascular, Auscultation: S1, S2 audible; no murmur, rub, or gallop; RRRPeripheral Circulation: no clubbing, cyanosis, edema, or varicositiesAbdomen: soft, non-tender, no masses, bowel sounds normalGait & Station: normalSkin, Inspection: no rashes, lesions, or ulcerationsOrientation: oriented to time, place, and personMood & Affect: no depression, anxiety, or agitationJudgment & Insight: intactCare Management Plan Transitions of CareInboundRate Your HealthIn general, would you say your health is? Very GoodAssessment & Plan Problems:Added: Other iron deficiency anemias (APZ39-N11.8) Assessment: Instructions: please start taking iron medication as prescribed. Please continue healthy diet and physical activities.Assessed:Anemia, unspecified (DTO34-O00.9) Assessment: Pt states heavy menstral bleeding. Pt is now being evaluated by woman's health provider. Pt states considering partial historectomy. Instruct ions: We will send an prescription to your pharmacy to start iron medication. Please continue healthy diet and physical activities. Please continue to follow with your woman's health specialist.Hypertension (ICD-401.9) (ZLO09-A86) Assessment: Instructions: Your Blood pressure is at goal today. Please continue medication as prescribed. Please continue healthy diet and physical activities.Person consulting for explanation of examination or test findings (ICD-V65.8) (LYC67-M82.2) Assessment: Instructions: Lab results reviewed with you today.Nicotine dependence, cigarettes, uncomplicated (JHD89-U24.210) Assessment: smoking 2-3 cigarettes daily. Smoking cessation discussed. Instructions: Pt continue to try to quit smoking.Nipple discharge (ICD-611.79) (ZDN84-Q82.52) Assessment: Instructions: Please continue to follow with breast specialist as scheduled.Referral made to newspaper publisher for you to have stress test prior to breast procedure.Health Screening (ICD-V70.0) (JPK39-J51.9) Assessment: Instructions: Fasting labs ordered to be done prior to next visit.Patient Instructions/Care Plan: Anemia- unspecified: We will send an prescription to your pharmacy to start iron medication. Please continue healthy diet and physical activities. Please continue to follow with your woman's health specialist.Other iron deficiency anemias: please start taking iron medication as prescribed. Please continue healthy diet and physical activities.Hypertension: Your Blood pressure is at goal today. Please continue medication as prescribed. Please continue healthy diet and physical activities.Person consulting for explanation of examination or test findings: Lab results reviewed with you today.Nicotine dependence- cigarettes- uncomplicated: Pt continue to try to quit smoking.Nipple discharge: Please continue to follow with breast specialist as scheduled.Referral made to newspaper publisher for you to have stress test prior to breast procedure.Health Screening: Fasting labs ordered to be done prior to next visit. Plan developed in collaboration with patient and/or familyMedications:CHLORTHALIDONE 25 MG ORAL TABLETFERROUS SULFATE 325 (65 FE) MG ORAL TABLETTRAZODONE HCL 50 MG ORAL TABLETVITAMIN D (ERGOCALCIFEROL) 23109 UNIT ORAL CAPSULEMedication Changes:Added: CHLORTHALIDONE 25 MG ORAL TABLET-take 1/2 tablet by mouth dailyNew Prescription:FERROUS SULFATE 325 (65 FE) MG ORAL TABLET-take one tablet by mouth twice daily Qty: 60[Tablet] Refills: 2 Method: ElectronicRemoved:AMLODIPINE BESYLATE 5 MG ORAL TABLET-take one tablet by mouth daily Qty: 30[Tablet] Refills: 1Allergies:No Known Allergies (updated 12/17/2019) Orders:Cardiology Consult [CPT-95502] COMP METABOLIC PANEL [CPT- 69467] CBC W/DIFF [CPT-43905] LIPID PANEL [CPT-56744] VITAMIN B-12 [CPT-59963] IRON [CPT-41747] FERRITIN [CPT-89263] Vitamin D 250H Unspecified [CPT-70315] Adult - Ofc Vst, EST, Level IV [CPT-47026] Follow-Up Return to clinic: 3 months for follow up Clinical Visit Summary CompletedMedications:FERROUS SULFATE 325 (65 FE) MG ORAL TABLET (FERROUS SULFATE) take one tablet by mouth twice daily #60[Tablet] x 2 Route:ORAL Entered and Authorized by: Gustavo ALFRED Method used: Electronically to [facility] (retail) [address] [place] [address] Ph: Note to Pharmacy: Route: ORAL; Indications: ANEMIA, UNSPECIFIED;OTHER IRON DEFICIENCY ANEMIAS RxID: [id number] AMLODIPINE BESYLATE 5 MG ORAL TABLET (AMLODIPINE BESYLATE) take one tablet by mouth daily #30[Tablet] x 1 Route:ORAL Entered by: Leonela Montelongo Authorized by: Gustavo ALFRED Method used: Electronically to [facility] (retail) [address] [place] [address] RxID: [id number] signed by Gustavo ALFRED on 03/03/2020 at 5:02 AM Name Value Range Interpretation Code Description Data Dyesi rce(s) Supporting Document(s) ID Date Data Source [id number] 02/24/2020 04:14:00 PM EDT [facility] ([facility]) Name Value Range Interpretation Code Description Data Deysi rce(s) Supporting Document(s) White Blood Count 6.6 4.0-10.0 [facility] ([facility]) Red Blood Count 3.59 4.00-5.40 [facility] ([facility]) Platelets 292 150-450 [facility] ([facility]) Hemoglobin 10.3 [facility] ([facility]) Hematocrit 33.1 [facility] ([facility]) ID Date Data Source [id number] 02/24/2020 11:26:19 AM EDT [facility] In-House Urine TestsDate/Time Colle cted: February 24, 2020 11:26 AMTest Result Reference Range Normal ValueAshley Garcia, February 24, 2020 11:26 AMBlood TestsDate/Time Collected: February 24, 2020 11:26 AMTest Result Reference Range Normal ValueComments: blood draw done in office,taken from left ac, tolerated well.Ashley Garcia, February 24, 2020 11:26 AMAssessment & Plan Orders:[id number] Vst-Est Level I [CPT-40389] [id number] - Venipuncture [CPT-81653] Name Value Range Interpretation Code Description Data Deysi rce(s) Supporting Document(s) ID Date Data Source [id number] 02/24/2020 11:15:00 AM EDT [facility] Name Value Range Interpretation Code Description Data Deysi rce(s) Supporting Document(s) APPEARANCE U HAZY CLEAR N [facility] SPEC GR URIN 1.023 1.002-1.035 N [facility] UA COLOR YELLOW YELLOW N [facility] ID Date Data Source [id number] 02/24/2020 11:15:00 AM EDT [facility] Name Value Range Interpretation Code Description Data Deysi rce(s) Supporting Document(s) HCT 33.1 % 36.0-47.0 L [facility] HGB 10.3 g/dL 12.0-15.5 L [facility] MCH 31.1 G/DL pg 32.0-36.5 L [facility] MCHC 28.7 PG % 27.0-33.0 N [facility] PLATELETS 292 10 10*3/mm3 150-450 N [facility] RBC 3.59 10 10*6/mm3 4.00-5.40 L [facility] RDW 13.4 % 11.5-14.5 N [facility] WBC TOTAL 6.6 4.0-10.0 N [facility] ID Date Data Source [id number] 01/29/2020 03:54:40 PM EDT [facility] Measurements & CalculationsHeight: 67 inches 170.18 cm Weight: 235.3 pounds 106.95 kg Body Mass Index (BMI): 36.99BMI Interpretation: ObeseBody Surface Area (BSA): 2.17Weight Management Education Done (Nutrition/Physical Activity)Vital SignsTemperature: 97.8F 36.56C tympanic Pulse Rate: 89 beats/minuteRespiratory Rate: 16 respirations/minuteBlood Pressure: 149/91 left arm sitting automaticO2 Saturation: 100% room airVital Signs performed by: Leonela Montelongo , January 29, 2020 4:05 PMInitial Intake Information From: patientRoom #: 8Infectious Disease / Travel ScreeningRecent travel for you or any close contacts? NoHave you had any close contact with anyone diagnosed with or under investigation for COVID-19 (coronavirus)? NoFever? NoRespiratory symptoms: cough, cold, congestion, shortness of breath, difficulty breathing? NoLoss of smell? NoLoss of taste? NoSmoking, Tobacco, Vaping or Smoke Exposure StatusSmoke Status: current some day smokerTobacco Use: YesDo you vape? NoPassive Smoke Exposure: YesMenstrual HistoryLast Menstrual Period (LMP): 01/26/2020LMP History: DefiniteComments: TUBAL LIGATIONHealthcare HistorySince your last office visit...Have you been admitted to the hospital? NoHave you been to an emergency room (ER) or urgent care clinic? Yes - URGENT CARE-STREP THROATEmergency room (ER) or urgent care date reported today: 12/15/2019Have you seen another healthcare provider? NoHave you seen a dentist? NoIntake performed by: Leonela Montelongo , January 29, 2020 4:01 PMRate Your HealthIn general, would you say your health is? Very GoodPain AssessmentAre you currently having any pain which... You would like your provider to address? No Affects your activity level? NoDepression Screening - PHQ-2Over the last two weeks, have you... Had little interest or pleasure in doing things? Not at all Been feeling down, depressed, or hopeless? Not at all PHQ-2 Score: 0Anxiety Screening - BRIANNA-2Over the last two weeks, have you been... Feeling nervous, anxious, or on edge? Not at all Unable to stop or control worrying? Not at all BRIANNA-2 Score: 0Food InsecurityWithin the past year...Did you worry whether your food would run out before you got money to buy more? NoWas there a time when the food you bought didn't last and you didn't have money to get more? NoScreening, Brief Intervention, & Referral to Treatment (SBIRT)Pre-Screening Questions How many times have you have 4 or more drinks in a day? 0How many times have you used an illegal drug or used a prescription medication for a non-medical reason? 0Performed by: Leonela Montelongo , January 29, 2020 4:02 PMPatient History Medical History:bipolardepressionAnxietySurgical History:tubal ligationleg surgeryMole removalcarpel tunnel right wristFamily History:Cancer - Ovarian (Paternal Grandmother)Heart disease (Maternal Grandfather) lung cancer( mother) Social/Personal History:Smoking History:Patient currently smokes every day.Patient has been counseled to quit. Age of First Use: 26Chief ComplaintMEDICATION FOLLOW UPHistory of Present Illness (HPI)44 yo female here for follow up visit and review of lab results. Pt states havent been taking her BP meds for about 2 weeks. pt states was testing to see if she need them. Pt's BP elevated today. Pt states will restart leeanne BP meds. Pt denies headache. Pt denies dizziness. Pt denies chest palpitations. pt denies chest pain or SOB. Pt states presently only eat one meal per day because she works long hours starting at 04 AM daily. HPI performed by: Gustavo Garcia [facility], January 29, 2020 4:21 PMTransitions of Care InboundProblem ReviewProblem List was reviewed and/or updated during this visit.Medication Reconciliation & ReviewMedication List was reviewed and/or updated during this visit, including review of any ldfl-wap-kgbknly medications, herbal therapies, and/or supplements.Allergy ReviewAllergy List was reviewed and/or updated during this visit.Adult Preventive CareProvider Calculated and Reviewed all Clinical Protocols for patient today. Labs/Meds/Other Counseling-Nutrition and Physical Activity:BMI Interpretation: Obese (01/29/2020) Counseling: Done (01/29/2020) Physical Activity: Done (01/29/2020)Cancer Screening Mammogram Reviewed[facility]Today's Comments: JUST HAD AT SPECIALISTReview of Systems General: Denies loss of appetite, chills, dizziness, fatigue, fever, continued fever, headache, feeling ill, sweats, night sweats, sleep disturbances, weight loss. Eyes: Denies blurring of vision, double vision, irritation, discharge, vision loss, eye pain, eye swelling, droopy eyelid, sensitivity to light, redness, itching. Ears/Nose/Throat: Denies earache, ear discharge, ringing in ears, decreased hearing, nasal congestion, nosebleeds, runny nose, sore throat, hoarseness, difficulty swallowing, dry mouth, tooth pain, bleeding gums, swollen glands. Cardiovascular: Denies chest pain, palpitations, feeling faint, trouble breathing w/exertion, SOB upon lying down, SOB at night, peripheral edema, elevated blood pressure, decreased heart rate. Respiratory: Denies cough, difficulty breathing, shortness of breath, excessive sputum, coughing up blood, wheezing, chest pain. Breast: Complains of tenderness. Denies discoloration, breast changes, breast lump, nipple discharge. Gastrointestinal: Denies nausea, vomiting, bleeding, burning, itching, irritation, cramps, diarrhea, constipation. Genitourinary: Denies urinary incontinence, pain with urination, burning with urination, urinary frequency, urinary hesitancy, urinary urgency, urinary urgency at night, incomplete emptying, blood in urine, heavy menstrual period, prolonged menstrual period. Musculoskeletal: Denies back pain, joint pain, leg pain, other pain-see comments, joint swelling, body aches, muscle aches, muscle cramps, muscle weakness, stiffness, recent injury. Skin: Denies rash, hives, redness, itching, dryness, nail changes, suspicious lesions, athlete's foot, rash on palms, rash on bottom of feet. Neurologic: Denies muscle impairment, weakness, numbness/tingling, seizures, slurred speech, feeling faint, tremors, vertigo, paralysis on one side, paralysis on both sides. Psychiatric: Denies depression, anxiety, memory loss, mental disturbance, suicidal ideation, homicidal ideation, hallucinations, paranoia, feeling stressed, hearing voices. Endocrine: Denies cold intolerance, heat intolerance, excessive thirst, excessive hunger, excessive urination, weight loss, weight gain. Heme/Lymphatic: Denies abnormal bruising, bleeding, enlarged lymph nodes. Physical ExamGeneral Appearance: well nourished, well hydrated, no acute distressEyes, External: conjunctivae and lids normal, EOMIRespiratory, Auscultation: clear to auscultation bilaterally; no rales, rhonchi, or wheezesRespiratory, Effort: no intercostal retractions or use of accessory musclesCardiovascular, Auscultation: S1, S2 audible; no murmur, rub, or gallop; RRRPeripheral Circulation: no clubbing, cyanosis, edema, or varicositiesAbdomen: soft, non-tender, no masses, bowel sounds normalGait & Station: normalSkin, Inspection: no rashes, lesions, or ulcerationsOrientation: oriented to time, place, and personMood & Affect: no depression, anxiety, or agitationJudgment & Insight: intactCare Management Plan Transitions of CareInboundRate Your HealthIn general, would you say your health is? Very GoodAssessment & Plan Problems:Added: Anemia, unspecified (YCK83-G37.9) Assessment: Instructions: Your Hemoglobin is 10.6, trending down. this indicates anemia. we have ordered labs for further assessment. Please try to maintain adequte nutrition adequate rest and adequate intake of water daily.Please watch for and report any abnormal bleeding.Anemia, unspecified (ZFX62-R91.9) Assessment: labs ordered for eval of anemia. Pt denies Bleeding/ acute blood lossAssessed:Person consulting for explanation of examination or test findings (ICD-V65.8) (KDM41-U85.2) Assessment: Instructions: We have reviewed your lab results with you today.Hypertension (ICD-401.9) (VJX61-U64) Assessment: Instructions: Your Blood pressure is elevated today. Please continue medication as prescribed. Please continue lifestyle changes to include healthy diet and physical activities. Please try to avoid added sodium in your diet. Please try to avoid processed foods.Nipple discharge (ICD-611.79) (BEU27-C52.52) Assessment: Instructions: Please continue to follow with breast specialist as scheduled.Obesity, unspecified (ZWJ01-Y26.9) Assessment: Instructions: Please try to maintain healthy diet and physical activities. Please try to maintain 3-4 small portion meals daily for adequate nutrition. Please try to maintain adequate intake of water daily.Patient Instructions/Care Plan: Anemia- unspecified: Your Hemoglobin is 10.6, trending down. this indicates anemia. we have ordered labs for further assessment. Please try to maintain adequte nutriti on adequate rest and adequate intake of water daily.Please watch for and report any abnormal bleeding.Person consulting for explanation of examination or test findings: We have reviewed your lab results with you today.Hypertension: Your Blood pressure is elevated today. Please continue medication as prescribed. Please continue lifestyle changes to include healthy diet and physical activities. Please try to avoid added sodium in your diet. Please try to avoid processed foods.Nipple discharge: Please continue to follow with breast specialist as scheduled.Obesity- unspecified: Please try to maintain healthy diet and physical activities. Please try to maintain 3-4 small portion meals daily for adequate nutrition. Please try to maintain adequate intake of water daily. Plan developed in collaboration with patient and/or familyMedications:TRAZODONE HCL 50 MG ORAL TABLETAMLODIPINE BESYLATE 5 MG ORAL TABLETVITAMIN D (ERGOCALCIFEROL) 20273 UNIT ORAL CAPSULEAllergies:No Known Allergies (updated 12/17/2019) Orders:CBC W/DIFF [CPT-73514] VITAMIN B-12 [CPT- 92051] IRON [CPT-22537] FERRITIN [CPT-59531] Folate (Folic Acid Serum) [CPT- 69812] URINALYSIS [CPT-86403] Adult - Ofc Vst, EST, Level IV [CPT-27543] Follow- Up Return to clinic: 4 weeks for follow up Clinical Visit Summary Completed Name Value Range Interpretation Code Description Data Deysi rce(s) Supporting Document(s) ID Date Data Source [id number] 01/21/2020 02:15:00 PM EDT [facility] ([facility] Name Value Range Interpretation Code Description Data Deysi rce(s) Supporting Document(s) Calcitriol [Mass/volume] in Serum or Plasma 47.2 [facility] ([facility]) ID Date Data Source [id number] 01/21/2020 02:15:00 PM EDT [facility] ([facility] Name Value Range Interpretation Code Description Data Deysi rce(s) Supporting Document(s) Triglycerides 104 [facility] ([facility]) Cholesterol 185 [facility] ([facility]) Cholesterol in LDL [Mass/volume] in Serum or Plasma by calculation 11 9 [facility]) HDL 45 [facility] Chol/HDL Ratio 4.111 [facility]) ID Date Data Source [id number] 01/21/2020 02:15:00 PM EDT [facility] Name Value Range Interpretation Code Description Data Deysi rce(s) Supporting Document(s) Aspartate aminotransferase [Enzymatic activity/volume] in Se rum or Plasma 13 15-37 [facility] ([facility]) Alanine aminotransferase [Enzymatic activity/volume] i n Serum or Plasma 17 30-65 [facility] Albumin 3.6 3.2-5.2 [facility] Alk Phos 61 50-136 [facility] Total Bilirubin 0.8 0.0-1.0 [facility] Total Protein 7.4 6.4-8.2 [facility] ([facility]) A/G Ratio 0.9 1.00-1.93 [facility]) ID Date Data Source [id number] 01/21/2020 02:15:00 PM EDT [facility] Name Value Range Interpretation Code Description Data Deysi rce(s) Supporting Document(s) Blood Urea Nitrogen 8 7-18 [facility] ([facility]) Glucose 94 83-110 [facility] Creatinine 0.92 0.6-1.0 [facility] ([facility]) Sodium 135 136-145 [facility] Potassium 4.0 3.5-5.1 [facility] Chloride 106 98-107 [facility] Carbon Dioxide 24 21-32 [facility] ([facility]) Glomerular filtration rate/1.73 sq M.pre dicted [Volume Rate/Area] in Serum or Plasma by Creatinine-based formula (MDRD) Laboratory test result [facility] ([facility]) Calcium 8.9 8.2-9.6 [facility]) ID Date Data Source [id number] 01/21/2020 02:15:00 PM EDT [facility]) Name Value Range Interpretation Code Description Data Deysi rce(s) Supporting Document(s) White Blood Count 7.0 5.0-10.0 [facility]) Red Blood Count 3.60 4.00-5.40 [facility]) Platelets 290 172-450 [facility] Hemoglobin 10.6 [facility]) Hematocrit 32.5 [facility] ([facility]) ID Date Data Source [id number] 01/21/2020 09:42:40 AM EDT [facility] In-House Blood TestsDate/Time Colle cted: January 21, 2020 9:43 AMTest Result Reference Range Normal ValueComments: blood draw done in offcie done in the right ac tolerated well Maicol Camacho MA, January 21, 2020 9:43 AMAssessment & Plan Orders:[id number] Vst-Est Level I [CPT-77464] 29061 - Venipuncture [CPT-50791] Name Value Range Interpretation Code Description Data Deysi rce(s) Supporting Document(s) ID Date Data Source [id number] 01/21/2020 09:40:00 AM EDT [facility] Name Value Range Interpretation Code Description Data Deysi rce(s) Supporting Document(s) HCT 32.5 % 36.0-47.0 L [facility] HGB 10.6 g/dL 12.0-15.5 L [facility] MCH 32.6 G/DL pg 32.0-36.5 N [facility] MCHC 29.4 PG % 27.0-33.0 N [facility] PLATELETS 290 10 10*3/mm3 150-450 N [facility] RBC 3.60 10 10*6/mm3 4.00-5.40 L [facility] RDW 13.4 % 11.5-14.5 N [facility] WBC TOTAL 7.0 4.0-10.0 N [facility] ID Date Data Source [id number] 01/21/2020 09:40:00 AM EDT [facility] Name Value Range Interpretation Code Description Data Deysi rce(s) Supporting Document(s) VIT D25 TOT 47.2 ng/mL 30.0-100.0 N [facility] BG FASTING 94 mg/dL 70-100 N [facility] ID Date Data Source [id number] 12/17/2019 05:01:56 PM EDT [facility] Measurements & CalculationsHeight: 67 inches (5 ft. 7 in.) 170.18 cm Weight: 235 pounds 6 oz. 106.99 kg Body Mass Index (BMI): 37.00BMI Interpretation: ObeseBody Surface Area (BSA): 2.17Weight Management Education Done (Nutrition/Physical Activity)Vital SignsTemperature: 98.6FPulse Rate: 88 beats/minuteRespiratory Rate: 14 respirat ions/minuteBlood Pressure: 132/82 O2 Saturation: 100% Vital Signs performed by: Mattie Sosa LPN, December 17, 2019 5:03 PMVital Signs performed by: Mattie Sosa LPN, December 17, 2019 5:03 PMInitial Intake Information From: patientRoom #: 13Infectious Disease / Travel ScreeningRecent travel for you or any close contacts? NoHave you had any close contact with anyone diagnosed with or under investigation for COVID-19 (coronavirus)? NoFever? NoRespiratory symptoms: cough, cold, congestion, shortness of breath, difficulty breathing? NoLoss of smell? NoLoss of taste? NoSmoking, Tobacco, Vaping or Smoke Exposure StatusSmoke Status: current some day smokerTobacco Use: YesAdv to Quit: YesDo you vape? NoPassive Smoke Exposure: NoMenstrual HistoryLast Menstrual Period (LMP): 12/12/2019Any possibility of ? NoHealthcare HistorySince your last office visit...Have you been admitted to the hospital? NoHave you been to an emergency room (ER) or urgent care clinic? NoHave you seen another healthcare provider? Yes - CardioHave you seen a dentist? NoIntake performed by: Mattie Sosa LPN, December 17, 2019 5:07 PMRate Your HealthIn general, would you say your health is? GoodPain AssessmentAre you currently having any pain which... You would like your provider to address? Yes Affects your activity level? NoDepression Screening - PHQ-2Over the last two weeks, have you... Had little interest or pleasure in doing things? Not at all Been feeling down, depressed, or hopeless? Not at all PHQ-2 Score: 0Anxiety Screening - BRIANNA-2Over the last two weeks, have you been... Feeling nervous, anxious, or on edge? Not at all Unable to stop or control worrying? Not at all BRIANNA-2 Score: 0Food InsecurityWithin the past year...Did you worry whether your food would run out before you got money to buy more? NoWas there a time when the food you bought didn't last and you didn't have money to get more? NoPain AssessmentPain ScaleNumeric Rating Scale: 5 / 10Location: Left nipple are on breast Duration: 2 weeksFrequency: DailyCharacter/Quality: throbbingIs the pain radiating? YesTo what body part(s) is the pain radiating? to left daniel eScreening, Brief Intervention, & Referral to Treatment (SBIRT)Pre-Screening Questions How many times have you have 4 or more drinks in a day? 0How many times have you used an illegal drug or used a prescription medication for a non-medical reason? 0Performed by: Mattie Sosa LPN, December 17, 2019 5:10 PMPatient History Medical History:bipolardepressionAnxietySurgical History:tubal ligationleg surgeryMole removalcarpel tunnel right wristFamily History:Cancer - Ovarian (Paternal Grandmother)Heart disease (Maternal Grandfather) lung cancer( mother) Social/Personal History:Smoking History:Patient currently smokes every day.Patient has been counseled to quit. Age of First Use: 26Advised to Quit/Tobacco Education: YesChief ComplaintB/P check room 13History of Present Illness (HPI)44 YO female here for follow up on B/P. C/O pain at left Nipple area. Pt states nipple discharge present for over 4 years but breast pain started about two weeks ago. Pt states no recent Mammogram. Pt verbalized strong family history of cancer. Pt states still smoking some days about 2-3 c igarettes. Pt denies other concerns at this time. HPI performed by: Gustavo CASTAÑEDAP, December 17, 2019 5:50 PMTransitions of Care InboundProblem ReviewProblem List was reviewed and/or updated during this visit.Medication Reconciliation & ReviewMedication List was reviewed and/or updated during this visit, including review of any yifb-psu-ydecaca medications, herbal therapies, and/or supplements.Allergy ReviewAllergy List was reviewed and/or updated during this visit. Patient has no known allergies.Adult Preventive CareProvider Calculated and Reviewed all Clinical Protocols for patient today. Screening Tobacco Screening: Smoking Status: current some day smoker (12/17/2019) Tobacco Use: Currently (12/17/2019) Advised to Quit: Yes (12/17/2019)Labs/Meds/Other Counseling-Nutrition and Physical Activity:BMI Interpretation: Obese (12/17/2019) Counseling: Done (12/17/2019) Physical Activity: Done (12/17/2019)Review of Systems General: Denies loss of appetite, chills, dizziness, fatigue, fever, continued fever, headache, feeling ill, sweats, night sweats, sleep disturbances, weight loss. Eyes: Denies blurring of vision, double vision, irritation, discharge, vision loss, eye pain, eye s welling, droopy eyelid, sensitivity to light, redness, itching. Ears/Nose/Throat: Denies earache, ear discharge, ringing in ears, decreased hearing, nasal congestion, nosebleeds, runny nose, sore throat, hoarseness, difficulty swallowing, dry mouth, tooth pain, bleeding gums, swollen glands. Cardiovascular: Denies chest pain, palpitations, feeling faint, trouble breathing w/exertion, SOB upon lying down, SOB at night, peripheral edema, elevated blood pressure, decreased heart rate. Respiratory: Denies cough, difficulty breathing, shortness of breath, excessive sputum, coughing up blood, wheezing, chest pain. Breast: Complains of tenderness, nipple discharge. left breast pain and nipple dischargeGastrointestinal: Denies nausea, vomiting, bleeding, burning, itching, irritation, cramps, diarrhea, constipation. Genitourinary: Denies urinary incontinence, pain with urination, burning with urination, urinary frequency. Musculoskeletal: Denies back pain, joint pain, leg pain, other pain-see comments, joint swelling, body aches, muscle aches, muscle cramps, muscle weakness, stiffness, recent injury. Skin: Denies rash, hives, redness, itching, dryness, nail changes, suspicious lesions, athlete's foot, rash on palms, rash on bottom of feet. Neurologic: Denies muscle impairment, weakness, numbness/tingling, seizures, slurred speech, feeling faint, tremors, vertigo, paralysis on one side, paralysis on both sides. Psychiatric: Denies depression, anxiety, memory loss, mental disturbance, suicidal ideation, homicidal ideation, hallucinations, paranoia, feeling stressed, hearing voices. Endocrine: Denies cold intolerance, heat intolerance, excessive thirst, excessive hunger, excessive urination, weight loss, weight gain. Heme/Lymphatic: Denies abnormal bruising, bleeding, enlarged lymph nodes. Physical ExamGeneral Appearance: well nourished, well hydrated, no acute distressEyes, External: conjunctivae and lids normal, EOMIChest Wall: non- tender, no massesBreasts, Inspection: no asymmetry, no skin changes, nipple discharge present left breast, serus fluid express left nippleBreasts, Palpation: no masses or tendernessRespiratory, Auscultation: clear to auscultation bilaterally; no rales, rhonchi, or wheezesRespiratory, Effort: no intercostal retractions or use of accessory musclesCardiovascular, Auscultation: S1, S2 audible; no murmur, rub, or gallop; RRRPeripheral Circulation: no clubbing, cyanosis, edema, or varicositiesAbdomen: soft, non-tender, no masses, bowel sounds normalGait & Station: normalSkin, Inspection: no rashes, lesions, or ulcerationsOrientation: oriented to time, place, and personMood & Affect: no depression, anxiety, or agitationJudgment & Insight: intactCare Management Plan Transitions of CareInboundRate Your HealthIn general, would you say your health is? GoodAssessment & Plan Problems:Added: Nipple discharge (ICD-611.79) (ICD10- N64.52) Assessment: Instructions: We have made a referral for you today. We will contact you to set this up.Assessed:Mastodynia of left breast (WDD96-Q20.4) Assessment: Instructions: May continue Ibuprofen or tylenol for pain as needed. We have made a referral to a breast specialist for you today. We will contact you to set this up.Insomnia, unspecified (SHQ50-C10.00) Assessment: Instructions: Please continue Trazodone as prescribed.Hypertension (ICD-401.9) (SGB23-V50) Assessment: Instructions: Your blood pressure is at goal today. Please continue medication as prescribed. Please continue lifestyle changes to include healthy diet and physical activities. Please try to avoid added sodium in your diet. Please try to avoid processed foods.Health Screening (ICD-V70.0) (VQX31-D87.9) Assessment: Instructions: Fasting labs ordered.Insomnia, unspecified (QQV61-T76.00) Assessment: Pt states Improved with TrazodoneHypertension (ICD-401.9) (AJO49-Z73) Assessment: BP much imprroved with Amlodipine.Nicotine dependence, cigarettes, uncomplicated (QMK22-V87.210) Assessment: Instructions: Please continue to try to quit smoking.Obesity (ICD-278.00) (OXD97-G66.09) Assessment: Instructions: Please try to adhere to a healthy diet, low in cholesterol and salt intake. Also, it is important to exercise, including aerobic and strength training at least three times per week for 30 minutes at a time to help maintain a healthy weight and prevent health problems.Patient Instructions/Care Plan: Nipple discharge: We have made a referral for you today. We will contact you to set this up.Mastodynia of left breast: May continue Ibuprofen or tylenol for pain as needed. We have made a referral to a breast specialist for you today. We will contact you to set this up.Insomnia- unspecified: Please continue Trazodone as prescribed.Hypertension: Your blood pressure is at goal today. Please continue medication as prescribed. Please continue lifestyle changes to include healthy diet and physical activities. Please try to avoid added sodium in your diet. Please try to avoid processed foods.Health Screening: Fasting labs ordered.Nicotine dependence- cigarettes- uncomplicated: Please continue to try to quit smoking.Obesity: Please try to adhere to a healthy diet, low in cholesterol and salt intake. Also, it is important to exercise, including aerobic and strength training at least three times per week for 30 minutes at a time to help maintain a healthy weight and prevent health problems. Plan developed in collaboration with patient and/or familyMedications:TRAZODONE HCL 50 MG ORAL TABLETAMLODIPINE BESYLATE 5 MG ORAL TABLETVITAMIN D (ERGOCALCIFEROL) 13290 UNIT ORAL CAPSULEAllergies:No Known Allergies (updated 12/17/2019) Orders:Other Referral [[id number]] COMP METABOLIC PANEL [CPT-86825] CBC W/DIFF [CPT-08248] Vitamin D 250H Unspecified [CPT-65269] LIPID PANEL [CPT-95041] Adult - Ofc Vst, EST, Level IV [CPT-53561] Follow-Up Return to clinic: 4-6 weeks for follow up Clinical Visit Summary Completed Name Value Range Interpretation Code Description Data Deysi rce(s) Supporting Document(s) ID Date Data Source [id number] 11/20/2019 11:17:54 AM EDT [facility] Initial Intake Information from: patient Room #: 10Chief ComplaintBP recheckVital SignsTemperature: 97.6FPulse Rate: 85 beats/minuteRespiratory Rate: 14 respirations/minuteBlood Pressure: 120/80 Vital Signs performed by: Ashley Garcia, November 20, 2019 11:18 AMVital Signs performed by: Ashley Garcia, November 20, 2019 11:18 AMAssessment & Plan Orders:[id number]- Ofc Vst-Est Level I [CPT-16831] Nurses Note patient helped her son move and strained her back, and is wondering if you could send in a muscle relaxer for her. Name Value Range Interpretation Code Description Data Deysi rce(s) Supporting Document(s) ID Date Data Source [id number] 11/06/2019 04:22:33 PM EDT [facility] Measurements & CalculationsHeight: 67 inches (5 ft. 7 in.) 170.18 cm Weight: 232 pounds 2 oz. 105.51 kg Body Mass Index (BMI): 36.49BMI Interpretation: ObeseBody Surface Area (BSA): 2.16Weight Management Education Done (Nutrition/Physical Activity)Vital SignsTemperature: 98.3FPulse Rate: 84 beats/minuteRespiratory Rate: 14 respirat ions/minuteBlood Pressure: 156/96 O2 Saturation: 100% Vital Signs performed by: Mattie Sosa LPN, November 06, 2019 4:35 PMVital Signs performed by: Mattie Sosa LPN, November 06, 2019 4:35 PMMultiple Vital SignsInitial BP: 160/107Vitals #2BP: 156/96 (primary)Initial Intake Information from: patientRoom #: 13Smoking, Tobacco, Vaping or Smoke Exposure StatusSmoke Status: current some day smokerTobacco Use: YesAdv to Quit: YesDo you vape? NoPassive Smoke Exposure: NoMenstrual HistoryAny possibility of ? NoComments: tubal ligationHealthcare HistorySince your last office visit...Have you been admitted to the hospital? NoHave you been to an emergency room (ER) or urgent care clinic? NoHave you seen another healthcare provider? NoHave you seen a dentist? NoRate Your HealthIn general, would you say your health is? Very GoodPain AssessmentAre you currently having any pain which... You would like your provider to address? Yes Affects your activity level? YesDepression Screening - PHQ-2Over the last two weeks, have you... Had little interest or pleasure in doing things? Not at all Been feeling down, depressed, or hopeless? Not at all PHQ-2 Score: 0Anxiety Screening - BRIANNA-2Over the last two weeks, have you been... Feeling nervous, anxious, or on edge? Not at all Unable to stop or control worrying? Not at all BRIANNA-2 Score: 0Food InsecurityWithin the past year...Did you worry whether your food would run out before you got money to buy more? NoWas there a time when the food you bought didn't last and you didn't have money to get more? NoInfectious Disease / Travel ScreeningRecent travel for you or any close contacts? NoHave you had any close contact with anyone diagnosed with or under investigation for COVID-19 (coronavirus)? NoHave you had any of the following symptoms recently? Fever? NoRespiratory symptoms: cough, cold, congestion, shortness of breath, difficulty breathing? NoPain AssessmentPain ScaleNumeric Rating Scale: 6 / 10Location: right elbow Duration: chronicFrequency: DailyCharacter/Quality: burning, sharp and pinchingIs the pain radiating? NoScreening, Brief Intervention, & Referral to Treatment (SBIRT)Pre-Screening Questions How many times have you have 4 or more drinks in a day? 0How many times have you used an illegal drug or used a prescription medication for a non-medical reason? 0Performed by: Mattie Sosa LPN, November 06, 2019 4:33 PMPatient History Medical History:bipolardepressionAnxietySurgical History:tubal ligationleg surgeryMole removalcarpel tunnel right wristFamily History:Cancer - Ovarian (Paternal Grandmother)Heart disease (Maternal Grandfather)Social/Personal History: Age of First Use: 26Advised to Quit/Tobacco Education: YesChief ComplaintFollow up labs and B/P History of Present Illness (HPI)44 yo female here for follow up visit and review of lab results. Pt states still smoking about one pack cigarettes daily,Pt states Adult daughter lives with her with her 4 children and this have been a bit stressful. Pt states not yet ready to quit smoking. Pt tates healthy diet and physical activities. Pt denies alcoholism. Pt denies illicit drug use. Pt's BP still elevated. Pt denies associated symptoms. HPI performed by: Tatiana ALFRED, November 06, 2019 5:08 PMTransitions of Care InboundProblem ReviewProblem List was reviewed and/or updated during this visit.Medication Reconciliation & ReviewMedication List was reviewed and/or updated during this visit, including review of any qtto-jxt-oeyxdiv medications, herbal therapies, and/or supplements.Allergy ReviewAllergy List was reviewed and/or updated during this visit. Patient has no known allergies.Adult Preventive CareProvider Calculated and Reviewed all Clinical Protocols for patient today. Screening Tobacco Screening: Smoking Status: current some day smoker (11/06/2019) Tobacco Use: Currently (11/06/2019) Advised to Quit: Yes (11/06/2019)Labs/Meds/Other Counseling-Nutrition and Physical Activity:BMI Interpretation: Obese (11/06/2019) Counseling: Done (11/06/2019) Physical Activity: Done (11/06/2019)Review of Systems General: Denies loss of appetite, chills, dizziness, fatigue, fever, continued fever, headache, feeling ill, sweats, night sweats, sleep disturbances, weight loss. Eyes: Denies blurring of vision, double vision, irritation, discharge, vision loss, eye pain, eye swelling, droopy eyelid, sensitivity to light, redness, itching. Ears/Nos e/Throat: Denies earache, ear discharge, ringing in ears, decreased hearing, nasal congestion, nosebleeds, runny nose, sore throat, hoarseness, difficulty swallowing, dry mouth, tooth pain, bleeding gums, swollen glands. Cardiovascular: Denies chest pain, palpitations, feeling faint, trouble breathing w/exertion, SOB upon lying down, SOB at night, peripheral edema, elevated blood pressure, decreased heart rate. Respiratory: Denies cough, difficulty breathing, shortness of breath, excessive sputum, coughing up blood, wheezing, chest pain. Gastrointestinal: Denies nausea, vomiting, bleeding, burn ing, itching, irritation, cramps, diarrhea, constipation. Genitourinary: Denies urinary incontinence, pain with urination, burning with urination, urinary frequency, urinary hesitancy, urinary urgency, urinary urgency at night, incomplete emptying, blood in urine. Musculoskeletal: Denies back pain, joint pain, leg pain, joint swelling, body aches, muscle aches, muscle cramps, muscle weakness, stiffness, recent injury. Neurologic: Denies muscle impairment, weakness, numbness/tingling, seizures, slurred speech, feeling faint, tremors, vertigo, paralysis on one side, paralysis on both sides. Psychiatric: Complains of feeling stressed. Denies depression, anxiety, memory loss, mental disturbance, suicidal ideation, homicidal ideation, hallucinations, paranoia, hearing voices. Endocrine: Denies cold intolerance, heat intolerance, excessive thirst, excessive hunger, excessive urination, weight loss, weight gain. Physical ExamGeneral Appearance: well nourished, well hydrated, no acute distressEyes, External: conjunctivae and lids normal, EOMIRespiratory, Auscultation: clear to auscultation bilaterally; no rales, rhonchi, or wheezesRespiratory, Effort: no intercostal retractions or use of accessory musclesCardiovascular, Auscultation: S1, S2 audible; no murmur, rub, or gallop; RRRPeripheral Circulation: no clubbing, cyanosis, edema, or varicositiesAbdomen: soft, non-tender, no masses, bowel sounds normalGait & Station: normalSkin, Inspection: no rashes, lesions, or ulcerationsOrientation: oriented to time, place, and personMood & Affect: no depression, anxiety, or agitationJudgment &am p; Insight: intactCare Management Plan Transitions of CareInboundRate Your HealthIn general, would you say your health is? Very GoodAssessment & Plan Problems:Added: Person consulting for explanation of examination or test findings (ICD-V65.8) (BFY37-E76.2) Assessment: Instructions: We have reviewed your lab results with you today.We have sent a prescription to your pharmacy today. Please take medications as prescribed. Please report any major side effects. Please continue lifestyle changes to include healthy diet and physical activities. Please try to maintain adequate fluid intake.Assess ed:Hypertension (ICD-401.9) (ZDO92-X40) Assessment: Instructions: Your blood pressure is still elevated todayWe have sent a precription to your pharmacy today. Please take medications as prescribed. Please report any major side effects. Please continue lifestyle changes to include healthy diet and physical activities. please try to avoid added sodium in your diet. Please try to avoid processed foods. Please try to maintain adequate fluid intakeVitamin D deficiency, unspecified (LAG03-K08.9) Assessment: Instructions: Vitamin D deficiency per recent labs. We have sent a prescription to your pharmacy today. Please take medications as prescribed. Please continue healthy diet and physical activities.Obesity (ICD-278.00) (KRT10-O27.09) Assessment: Instructions: Please try to adhere to a healthy diet, low in cholesterol and salt intake. Also, it is important to exercise, including aerobic and strength training at least three times per week for 30 minutes at a time to help maintain a healthy weight and prevent health problems.Health Screening (ICD-V70.0) (ETV97-W18.9) Assessment: Instructions: Labs reviewed with you today.Nicotine dependence, cigarettes, uncomplicated (YER68-E92.210) Assessment: Instructions: Please continue to try to quit smoking.Patient Instructions/Care Plan: Person consulting for explanation of examination or test findings: We have reviewed your lab results with you today.We have sent a prescription to your pharmacy today. Please take medications as prescribed. Please report any major side effects. Please continue lifestyle changes to include healthy diet and physical activities. Please try to maintain adequate fluid intake.Hypertension: Your blood pressure is still elevated todayWe have sent a precription to your pharmacy today. Please take medications as prescribed. Please report any major side effects. Please continue lifestyle changes to include healthy diet and physical activities. please try to avoid added sodium in your diet. Please try t o avoid processed foods. Please try to maintain adequate fluid intakeVitamin D deficiency- unspecified: Vitamin D deficiency per recent labs. We have sent a prescription to your pharmacy today. Please take medications as prescribed. Please continue healthy diet and physical activities.Obesity: Please try to adhere to a healthy diet, low in cholesterol and salt intake. Also, it is important to exercise, including aerobic and strength training at least three times per week for 30 minutes at a time to help maintain a healthy weight and prevent health problems.Health Screening: Labs reviewed with you today.Nicotine dependence- cigarettes- uncomplicated: Please continue to try to quit smoking. Plan developed in collaboration with patient and/or familyMedications:AMLODIPINE BESYLATE 5 MG ORAL TABLETVITAMIN D (ERGOCALCIFEROL) 09886 UNIT ORAL CAPSULEMedication Changes:New Prescription:VITAMIN D (ERGOCALCIFEROL) 48912 UNIT ORAL CAPSULE-1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
--- NOTE | 2020-10-08 12:20 | ROOR ---
Patient Name: Francine Wilson Procedure Date: 10/08/2020 11:58 AM Date of : 1975 Age: 45 Room: BUSSEY02 Gender: Female Note Status: Finalized Procedure: Colonoscopy Indications: Positive fecal immunochemical test Providers: Jason LANDEROS MD Referring MD: Alberta Garcia NP, Matt PAULINO MD Requesting Provider: Medicines: Monitored Anesthesia Care Complications: No immediate complications. Procedure: Pre-Anesthesia Assessment: - The heart rate, respiratory rate, oxygen saturations, blood pressure, adequacy of pulmonary ventilation, and response to care were monitored throughout the procedure. The Colonoscope was introduced through the anus and advanced to the terminal ileum, with identification of the appendiceal orifice and IC valve. The colonoscopy was performed without difficulty. The patient tolerated the procedure well. The quality of the bowel preparation was good. Findings: The perianal and digital rectal examinations were normal. The colon (entire examined portion) appeared normal. Small Internal Hemorrhoids. Impression: - The entire colon is normal. - Small Internal Hemorrhoids. - No specimens collected. Recommendation: - Repeat colonoscopy in 10 years for screening purposes. Procedure Code(s): --- Professional --- 04518, Colonoscopy, flexible; diagnostic, including collection of specimen(s) by brushing or washing, when performed (separate procedure) Diagnosis Code(s): --- Professional --- R19.5, Other fecal abnormalities CPT copyright 2019 [employer]. All rights reserved. The codes documented in this report are preliminary and upon bioinformatics engineer review may be revised to meet current compliance requirements. Jason Landeros MD Jason LANDEROS MD 10/08/2020 12:19:57 PM Electronically signed by Jason LANDEROS MD Number of Addenda: 0 Note Initiated On: 10/08/2020 11:58 AM Estimated Blood Loss: Estimated blood loss: none.
[2020-10-08 12:35] VITALS: BP 137/76
== END 2020-10-08 12:46 | disposition home or self-care (01) ==
LOC: M OPP 10:36
PROVIDERS: ATTEND Internal Medicine Gastroenterology
DX: R19.5 Other fecal abnormalities (principal); K64.8 Other hemorrhoids; D50.9 Iron deficiency anemia, unspecified; F41.9 Anxiety disorder, unspecified; F31.9 Bipolar disorder, unspecified; F17.210 Nicotine dependence, cigarettes, uncomplicated; Z96.89 Presence of other specified functional implants; Z88.8 Allergy status to other drugs, medicaments and biological substances; Z79.899 Other long term (current) drug therapy

== ENCOUNTER → 2020-10-11 | Outpatient (CLI) | payer BC ==
[~2020-10-11] MED LIST changes: -LIDOCAINE 2% 100MG/5ML SDV (FOR ANES.) As Ordered ONE; -NS 1,000 ML IV ONE; +ROXI1TAB2 PO; -propofoL 200 MG/20 ML VIAL As Ordered ONE
--- NOTE | 2020-10-11 11:24 | REP ---
INDICATION: ENCOUNTER FOR OTHER PREPROCEDURAL EXAMINATION COMPARISON: 03/24/2020 TECHNIQUE: PA and lateral. FINDINGS: The mediastinum and cardiac silhouette are normal. The lung can are clear and without acute consolidation, effusion, or pneumothorax. The skeletal structures are intact and normal. IMPRESSION: No acute cardiopulmonary process. <Electronically signed by Elvin March > 10/11/20 [id number]
== END ==
LOC: M RAD 11:07
PROVIDERS: ATTEND Nurse Practitioner Family
DX: Z01.818 Encounter for other preprocedural examination (principal); Z79.899 Other long term (current) drug therapy

== ENCOUNTER 2020-10-12 07:45 | Day surgery (SDC) | payer BC ==
[~2020-10-12] VITALS: Ht 170.2 cm; Wt 102.4 kg
[~2020-10-12 07:45] MED LIST changes: +LIDOCAINE 1% MDV 20ML VIAL SQ PRN; -ROXI1TAB2 PO
[2020-10-12] MEDS ORDERED: propofoL 200 MG/20 ML VIAL As Ordered ONE (08:11)
[2020-10-12] MEDS ORDERED: MIDAZOLAM INJ 2MG/2ML VIAL (J2250 PER 1MG) As Ordered ONE (08:11)
[2020-10-12] MEDS ORDERED: fentaNYL 250 MCG/5 ML INJECTION (J3010) As Ordered ONE (08:11)
[2020-10-12] MEDS ORDERED: LIDOCAINE 2% 100MG/5ML SDV (FOR ANES.) As Ordered ONE (08:11)
[2020-10-12] MEDS ORDERED: ceFAZolin 2 GM/D5W 50 ML IV BAG (J0690 PER 500MG) As Ordered ONE (08:13)
[2020-10-12] MEDS ORDERED: HEPARIN SOD (PORCINE) 5000UNITS/ML 1ML VIAL/SYRINGE As Ordered ONE (08:13)
[2020-10-12] MEDS ORDERED: LIDOCAINE 1% MDV 20ML VIAL As Ordered ONE (09:27)
[2020-10-12] MEDS ORDERED: BUPIVACAINE HCL 0.25% 10ML VIAL As Ordered ONE (09:27)
[2020-10-12] MEDS: ceFAZolin 2 GM/D5W 50 ML IV BAG (J0690 PER 500MG) IV ONE ×2 (09:53→10:17)
[2020-10-12] MEDS: HEPARIN SOD (PORCINE) 5000UNITS/ML 1ML VIAL/SYRINGE SQ ONE ×2 (09:55→10:19)
[2020-10-12] MEDS ORDERED: LR 1,000 ML IV ONE (10:35)
[2020-10-12] MEDS ORDERED: METOCLOPRAMIDE INJ 10MG/2ML VIAL (J2765 PER 1) As Ordered ONE (10:45)
[2020-10-12] MEDS ORDERED: dexameTHASONE 4 MG/ML 1ML VIAL (J1100 PER 1MG) As Ordered ONE (10:45)
[2020-10-12] MEDS ORDERED: KETOROLAC 60MG 2ML VIAL As Ordered ONE (10:45)
[2020-10-12] MEDS ORDERED: ONDANSETRON 4MG/2ML VIAL As Ordered ONE (10:45)
[2020-10-12] MEDS ORDERED: fentaNYL 100 MCG/2 ML INJECTION (J3010) As Ordered ONE (11:35)
[2020-10-12] MEDS ORDERED: oxyCODONE 5MG TAB As Ordered ONE (11:35)
[2020-10-12] MEDS ORDERED: ROXI1TAB2 PO (11:37)
[2020-10-12] MEDS ORDERED: oxyCODONE 5MG TAB PO PRN (12:00)
[2020-10-12] MEDS ORDERED: ONDANSETRON 4MG/2ML VIAL IV PRN (12:00)
[2020-10-12] MEDS ORDERED: LR 1,000 ML IV SCH (12:00)
[2020-10-12] MEDS ORDERED: fentaNYL 100 MCG/2 ML INJECTION (J3010) IV PRN (12:00)
[2020-10-12] MEDS ORDERED: HYDROMORPHONE HCL 0.5 MG/ 0.5 ML SYRINGE (J1170 PER 1) IV PRN (12:00)
[2020-10-12] MEDS ORDERED: METOCLOPRAMIDE INJ 10MG/2ML VIAL (J2765 PER 1) IV PRN (12:00)
[2020-10-12 12:41] VITALS: BP 123/66
--- NOTE | 2020-10-14 14:29 | ROOPDOC ---
[facility] Report Of Operation Report of Operation DATE OF PROCEDURE: 10/12/20 PREPROCEDURE DIAGNOSES: left nipple discharge POSTPROCEDURE DIAGNOSES: same PROCEDURE: excision of the left draining duct SURGEON: Dr Elizabeth Krishna ANESTHESIA: general ESTIMATED BLOOD LOSS: Approximately 5 mL. COMPLICATIONS: none REMARKS: draining duct identified DESCRIPTION OF PROCEDURE: INDICATIONS: Ms. Francine Zamora is a 45-year-old woman who was found to have a unilateral spontaneous clear nipple discharge from the left breast. She underwent diagnostic images with mammogram, ultrasound and MRI. None of those studies showed targetable lesion which would explain nipple discharge. The left nipple discharge was persistent. On my sonographic examination there was enlarged duct seen in the left breast at 4:00 which I believe is the affected duct. I have discussed with the patient that due to the lack of specific targetable lesion, I recommended focused left breast draining duct excision, possible central duct excision if draining duct cannot be identified on the day of surgery. She was medically cleared for surgery by her primary care doctor. Risks and possible complications of surgical procedure including bleeding, inf ection and injury to surrounding structures were explained to the patient and she wished to proceed. Consent was signed. My initials were placed on the operative site. DETAILS: Patient was taken to the operating room and placed on the operating room table. A sign in was called stating patients name, date of and the procedure to be done. Preoperative antibiotics were infused. Smooth induction of general anesthesia was done. Patients hands were extended on arm rests. Care was taken not to over extend the arms. Ultrasound was used to see if any dilated duct can be identified and the dialed duct at 4:00 was identified again. Next, patients left breast and axilla were prepped and draped in the usual fashion. Appropriate time out was done stating patients name, date of and the procedure to be done. Next, the left nipple was assessed for the drainage. Drainage was noted in the lower outer part of the nipple from one area. Smallest lacrimal probe was used to interrogate the duct producing the drainage. The lacrimal probe went smoothly into the draining duct and was advanced into the distal part of the duct. Additional drainage was noted around the lacrimal probe. Intraop ultrasound was used to assess the location of the lacrimal probe. The probe was noted to be inside the previously identified dilated duct at 4:00 location. Local anesthetic using 1% lidocaine and 0.25 % Marcaine 50/50 mix was injected at the site of planned periareolar incision. The incision was made with the scalpel. Subcutaneous skin flaps were raised. The lacrimal probe was kept in place in the affected duct throughout dissection. The duct with the lacrimal prove and immediate tissues surrounding the affected duct were excised. Extent of dissection was carried along the lacrimal probe earlier placed into the affected duct. After the dissected tissue was from the remaining breast tissue the lacrimal probe was then removed from the duct and the duct was disconnected from the nipple site. The distal and proximal openings of the duct was marked with the white suture. The specimen was carefully removed from the breast keeping its proper orientation and moved to the back table where margins were marked with the surgical inking kit following the standard colors recommendations. The specimen was labeled with patients name and left focused draining duct excision and sent to pathology. Next, the wound was irrigated thoroughly and adequate hemostasis was assured. Additional local anesthetic was injected into surrounding tissues. space was approximated with 2-0 Vicryl. The dermis was closed with 3-0 Vicryl and skin was closed with 4-0 Monocryl. Surgical glue was placed over the incision. Patient emerged from the anesthesia without any problems. Fluffs were placed ove r the operative site and patients chest was wrapped snuggly in the ANITA wrap. Sponge and instrument counts were done and were correct. Patient tolerated procedure well and was taken to recovery unit in stable condition. ELIZABETH KRISHNA DO Oct 13, 2020 11:33
== END 2020-10-12 13:40 | disposition home or self-care (01) ==
LOC: M SDC 07:45
PROVIDERS: ATTEND Surgery
DX: D24.2 Benign neoplasm of left breast (principal); N64.52 Nipple discharge; I10 Essential (primary) hypertension; M10.9 Gout, unspecified; F17.218 Nicotine dependence, cigarettes, with other nicotine-induced disorders; Z88.8 Allergy status to other drugs, medicaments and biological substances; Z91.040 Latex allergy status; F31.9 Bipolar disorder, unspecified; F41.9 Anxiety disorder, unspecified; F32.9 Major depressive disorder, single episode, unspecified; D64.9 Anemia, unspecified; Z79.899 Other long term (current) drug therapy
CPT/HCPCS: 19120; 36415; 86850; 86900; 86901; 88305; J0690; J1100; J1644; J1885; J2250; J2405; J2765; J3010

== ENCOUNTER → 2020-10-29 | Outpatient (REF) | payer BC ==
[~2020-10-29] MED LIST changes: -LIDOCAINE 1% MDV 20ML VIAL SQ PRN; +ROXI1TAB2 PO
[2020-10-29 17:07] LABS: BASO % 0.3 % (0.0-1.0); EOS # 0.1 10^3/uL (0.0-0.5); HEMATOCRIT 36.2 % (36.0-47.0); HEMOGLOBIN 11.7 g/dl (12.0-15.5); LYMPH # 2.6 10^3/uL (1.5-5.0); LYMPH % 40.2 % (24.0-44.0); MEAN CORPUSCULAR HGB CONC 32.3 g/dl (32.0-36.5); MEAN CORPUSCULAR VOLUME 92.8 fl (80.0-96.0); MONO # 0.4 10^3/uL (0.0-0.8); MONO % 6.5 % (2.0-8.0); NEUTROPHILS # 3.3 10^3/uL (1.5-8.5); NEUTROPHILS % 50.8 % (36.0-66.0); PLATELET COUNT, AUTOMATED 331 10^3/uL (150-450); WHITE BLOOD COUNT 6.4 10^3/uL (4.0-10.0)
[2020-10-29 17:43] LABS: ALT/SGPT 17 U/L (12-78); BILIRUBIN,TOTAL 0.6 MG/DL (0.2-1.0); BLOOD UREA NITROGEN 9 MG/DL (7-18); CALCIUM LEVEL 8.9 MG/DL (8.5-10.1); CARBON DIOXIDE LEVEL 28 MEQ/L (21-32); CHLORIDE LEVEL 104 MEQ/L (98-107); CREATININE FOR GFR 0.82 MG/DL (0.55-1.30); GLOMERULAR FILTRATION RATE > 60.0 (>58); GLUCOSE, FASTING 103 MG/DL (70-100); POTASSIUM SERUM 4.3 MEQ/L (3.5-5.1); SODIUM LEVEL 137 MEQ/L (136-145); TOTAL PROTEIN 7.6 GM/DL (6.4-8.2)
== END ==
LOC: M LAB REF 16:21
PROVIDERS: ATTEND Nurse Practitioner Family
DX: Z01.818 Encounter for other preprocedural examination (principal)

== ENCOUNTER → 2020-11-08 | Outpatient (REF) | payer BC | LOC: M SFHCWAGY 17:00 | PROVIDERS: ATTEND Obstetrics & Gynecology | DX: N93.9 Abnormal uterine and vaginal bleeding, unspecified (principal) ==

== ENCOUNTER → 2020-11-12 | Outpatient (CLI) | payer BC | LOC: M LABSMTC 09:35 | PROVIDERS: ATTEND Anesthesiology | DX: Z01.812 Encounter for preprocedural laboratory examination (principal) ==

== ENCOUNTER 2020-11-17 06:04 | Day surgery (SDC) | payer BC ==
[2020-11-17] VITALS (7 sets, daily range): BP systolic 104–119; BP diastolic 51–65
[~2020-11-17] VITALS: Ht 170.2 cm; Wt 104.1 kg
[2020-11-17 06:38] LABS: HEMATOCRIT 34.5 % (36.0-47.0); HEMOGLOBIN 10.8 g/dl (12.0-15.5); MEAN CORPUSCULAR HEMOGLOBIN 29.5 pg (27.0-33.0); MEAN CORPUSCULAR HGB CONC 31.3 g/dl (32.0-36.5); MEAN CORPUSCULAR VOLUME 94.3 fl (80.0-96.0); PLATELET COUNT, AUTOMATED 275 10^3/uL (150-450); RED BLOOD COUNT 3.66 10^6/uL (4.00-5.40)
[2020-11-17] MEDS ORDERED: ceFAZolin SOD 2 GM in IV 1 EA IV ONE (07:00)
[2020-11-17] MEDS ORDERED: LR 1,000 ML IV ONE (07:00)
[2020-11-17 07:13] LABS: HCG, SERUM QUALITATIVE NEGATIVE (NEGATIVE)
[2020-11-17] MEDS ORDERED: LACRILUBE (AKWA TEARS) OPHTH OINT 3.5 GM As Ordered ONE (07:13)
[2020-11-17] MEDS ORDERED: LIDOCAINE 2% 100MG/5ML SDV (FOR ANES.) As Ordered ONE (07:15)
[2020-11-17] MEDS ORDERED: MIDAZOLAM INJ 2MG/2ML VIAL (J2250 PER 1MG) As Ordered ONE (07:15)
[2020-11-17] MEDS ORDERED: BUPIVACAINE HCL 0.25% 30ML VIAL As Ordered ONE (07:15)
[2020-11-17] MEDS ORDERED: fentaNYL 100 MCG/2 ML INJECTION (J3010) As Ordered ONE ×2 (07:15→08:23)
[2020-11-17] MEDS ORDERED: propofoL 200 MG/20 ML VIAL As Ordered ONE (07:16)
[2020-11-17] MEDS ORDERED: ROCURONIUM BROMIDE 50 MG/5 ML VIAL As Ordered ONE ×2 (07:16→08:30)
[2020-11-17] MEDS ORDERED: ONDANSETRON 4MG/2ML VIAL As Ordered ONE (07:16)
[2020-11-17] MEDS ORDERED: ACETAMINOPHEN 1000MG 100ML IV BTL (OFIRMEV) (J0131 PER 10MG) As Ordered ONE (07:16)
[2020-11-17] MEDS ORDERED: SUGAMMADEX SODIUM 500 MG/5 ML VIAL (BRIDION) As Ordered ONE (07:16)
[2020-11-17] MEDS ORDERED: METHYLENE BLUE 0.5% (5MG/ML) 10 ML AMP (PROVAYBLUE) As Ordered ONE (07:16)
[2020-11-17] MEDS ORDERED: KETOROLAC 60MG 2ML VIAL As Ordered ONE (07:16)
[2020-11-17] MEDS ORDERED: SCOPOLAMINE 1MG TRANSDERMAL PATCH TOP ONE (07:25)
[2020-11-17] MEDS ORDERED: CHLORTHALIDONE 12.5MG PER 1/2 TABLET PO SCH (09:00)
[2020-11-17] MEDS ORDERED: HYDROmorphone HCL 2 MG/ML 1ML VIAL (J1170) As Ordered ONE (09:04)
[2020-11-17] MEDS ORDERED: traZODone 50 MG TAB PO PRN (10:00)
[2020-11-17] MEDS ORDERED: LR 1,000 ML IV SCH ×2 (10:00→10:45)
[2020-11-17] MEDS ORDERED: PERCOCET 5MG/325MG TAB PO PRN (10:00)
--- NOTE | 2020-11-17 10:06 | ROOPDOC ---
[facility] Report Of Operation Report of Operation DATE OF PROCEDURE: 11/17/2020 PREPROCEDURE DIAGNOSES: Abnormal uterine bleeding, chronic pelvic pain. Uterine leiomyomas POSTPROCEDURE DIAGNOSES: Same. PROCEDURE: Robotic-assisted total laparoscopic hysterectomy, bilateral salpingectomy, cystoscopy SURGEON: Rosanna Ellis D.O. FACOG CUP MACHINE OPERATOR: Faina Crowley ANESTHESIA: General endotracheal. ESTIMATED BLOOD LOSS: Approximately. 250 mL. FLUIDS REPLACED: 1500 mL LR URINE OUTPUT: 500 mL COMPLICATIONS: None. FINDINGS: Normal-appearing ovaries bilaterally. Uterus was approximately 13 centimeters in greatest dimension.(Weight 359 g at the conclusion of the procedure). Cystoscopy: Bilateral ureteral orifice efflux, no bladder injury/suture material. PREOPERATIVE ANTIBIOTIC PROPHYLAXIS: Ancef 2 g IV 1. SPECIMEN(S): Uterus w/ cervix, bilateral fallopian tubes DESCRIPTION OF PROCEDURE: The patient was counseled, consented on the respective benefits, indications, alternatives of procedure. Informed consent was obtained. She was taken to the operating room with an IV running. She was placed on the operating table in dorsal supine position. Gen. anesthesia was administered and the airway was secured without any difficulty. She was placed in the low lithotomy position. . She was prepared and draped in the normal sterile fashion. A time out was pe rformed per protocol. A Red catheter was placed under sterile conditions. A sterile speculum was placed resulting in good visualization of the cervix. A single-tooth tenaculum was used to grasp the anterior lip cervix. The cervix was sequentially dilated with Hua dilators. A V-Care uterine manipulator was placed without any difficulty. The single-tooth tenaculum was removed, as well as the speculum. A sterile glove switch was performed. Attention was turned to the abdomen. A 2mm incision was made in the umbilicus, and through this incision a Veress needle was inserted into the intraperitoneal cavity. Intraperitoneal placement was confirmed with ease of flow of normal saline, positive drop test, no return on aspiration, and an opening pressure of less than 10 mmHg upon initial insufflation. The abdomen was insufflated with 2 L of gas. The Veress needle was removed. A supraumbilical 8 mm incision was made. Through this incision, the robotic trochar/cannula was inserted into the intraperitoneal cavity under direct visualization. No incidental bleeding nor injury was noted. Patient was placed in 30 Trendelenburg. The right and left trocars/cannulas were placed on both the right and left side through 8 mm incisions, guided by laparoscopic visualization. No incidental bleeding nor injury was noted. The robot was docked in typical fashion. The instruments were inserted, guided by laparoscopic visualization. My attention was turned to the robotic console. Using the vessel sealer device, the right and left fallopian tubes were amputated. The fallopian tubes were brought through the assist-port cannula without any difficulty. The right utero-ovarian ligament and right round ligament were sequentially clamped, coagulated and transected with the vessel sealer device. The vesicouterine peritoneum was dissected with the vessel sealer device to create the bladder flap, thus mobilizing the lower uterine segment and cervix off of the bladder. The right uterine vasculature was sequentially clamped, coagulated and transected above the colpotomy cup. The left utero-ovarian ligament and left round ligament were sequentially clamped, coagulated and transected with the vessel sealer device. The remainder of the bladder flap was dissected using the vessel sealer device and blunt dissection. The left uterine vasculature was sequentially clamped, coagulated and transected above the colpotomy cup. The outline of the entire V- care colpotomy cup was able to be delineated. Excellent blanching of the uterus was noted. A circumferential colpotomy was performed using the da Rosalva monopolar alexandria, following the contour of the cup. The amputated cervix and uterus were brought through the colpotomy into and out of the vagina, intact as one unit. The colpotomy was closed with the V-lock barbed suture in running fashion, thus creating the vaginal cuff. Excellent hemostasis was noted throughout the steps above. German was placed over the vaginal cuff to ensure hemostasis. The instruments were removed from the abdomen and the robot was un-docked. The gas was released from the abdomen and the patient was taken out of Trendelenburg. I re-scrubbed, and attention was turned to the pelvis. The Red catheter was removed. The cystoscope was placed transurethrally into the bladder and normal saline was instilled. No bladder injury/suture material was noted. IV methylene blue had been administered by anesthesia and bilateral UO efflux was confirmed. The fluid was drained out of the bladder through the cystoscope device, then the cystoscope was removed. The vagina was copiously irrigated. A sterile digital vaginal exam revealed no significant bleeding and an intact vaginal cuff. A sterile glove switch was performed. The da Rosalva cannulas were removed. The skin incisions were closed with 4-0 Monocryl in subcuticular fashion. Sponge, needle and instrument counts were correct per protocol. The patient tolerated the entire procedure very well. She was transferred to the PACU in good and stable condition. Rosanna Ellis DO [facility] [place] ROSANNA ELLIS DO Nov 17, 2020 10:06
[2020-11-17] MEDS ORDERED: IBUP80TA PO (10:08)
[2020-11-17] MEDS ORDERED: PERCOCET PO (10:08)
[2020-11-17] MEDS ORDERED: DOK1CAP7 PO (10:08)
--- NOTE | 2020-11-17 10:44 | REP ---
INDICATION: post op in PACU. COMPARISON: PA and lateral chest dated 10/11/2020. TECHNIQUE: Portable AP chest with the patient sitting. FINDINGS: There is an incomplete inspiratory effort with significant under aeration of the lung can. There is diffuse coarsening of the interstitial markings bilaterally which could be artifact from induration, interstitial infiltrates or combination. Cardiac size appears enlarged, however this could be artifact from portable positioning and incomplete inspiratory effort. There is gaseous distention of the stomach beneath the left hemidiaphragm as an interval change. IMPRESSION: Incomplete inspiratory effort Diffusely coarsened interstitial markings and cardiac size enlarged, these could be artifact from the incomplete inspiratory effort. Repeat study with adequate inspiration is recommended. There is gaseous distention of the stomach. <Electronically signed by Amador Morales > 11/17/20 [id number]
[2020-11-17] MEDS ORDERED: fentaNYL 100 MCG/2 ML INJECTION (J3010) IV PRN (10:45)
[2020-11-17] MEDS ORDERED: ONDANSETRON 4MG/2ML VIAL IV PRN (10:45)
[2020-11-17] MEDS ORDERED: MEPERIDINE INJ 25 MG/ML VIAL (J2175) IV PRN ×2 (10:45→11:50)
[2020-11-17] MEDS ORDERED: oxyCODONE 5MG TAB PO PRN ×2 (10:45→11:50)
[2020-11-17] MEDS ORDERED: METOCLOPRAMIDE INJ 10MG/2ML VIAL (J2765 PER 1) IV PRN (10:45)
[2020-11-17] MEDS ORDERED: RACEPINEPHrine 2.25 % UD INHA NEB ONE (11:35)
[2020-11-17] MEDS ORDERED: ALBUTEROL SULFATE 2.5 MG/0.5 ML INH NEB SOLN INH ONE (11:35)
[2020-11-17] MEDS: fentaNYL 100 MCG/2 ML INJECTION (J3010) IV PRN ×2 (11:52→11:57)
[2020-11-17 12:34] LABS: HEMATOCRIT 36.6 % (36.0-47.0); HEMOGLOBIN 11.6 g/dl (12.0-15.5); MEAN CORPUSCULAR HEMOGLOBIN 29.8 pg (27.0-33.0); MEAN CORPUSCULAR HGB CONC 31.7 g/dl (32.0-36.5); MEAN CORPUSCULAR VOLUME 94.1 fl (80.0-96.0); PLATELET COUNT, AUTOMATED 266 10^3/uL (150-450); RED BLOOD COUNT 3.89 10^6/uL (4.00-5.40); WHITE BLOOD COUNT 14.6 10^3/uL (4.0-10.0)
[2020-11-17 12:45] LABS: INR 0.97; PROTHROMBIN TIME 13.1 SECONDS (12.5-14.3)
[2020-11-17 12:46] LABS: PARTIAL THROMBOPLASTIN TIME 26.8 SECONDS (24.2-38.5)
[2020-11-17] MEDS: DOCUSATE SODIUM 100MG CAPSULE PO SCH ×2 (14:42→20:00)
[2020-11-17] MEDS: KETOROLAC 30 MG/ML 1ML VIAL IV SCH ×2 (14:42→20:00)
[2020-11-17] MEDS: PERCOCET 5MG/325MG TAB PO PRN (14:42)
[2020-11-17] MEDS: ONDANSETRON 4MG/2ML VIAL IV PRN ×2 (15:30→21:24)
[2020-11-17] MEDS: CHLORTHALIDONE 25 MG TAB PO SCH (16:00)
[2020-11-18] VITALS: BP 98/54
[2020-11-18] MEDS: KETOROLAC 30 MG/ML 1ML VIAL IV SCH (01:36)
[2020-11-18 04:00] VITALS: BP 111/66
[2020-11-18 08:00] VITALS: BP 128/75
[2020-11-18] MEDS: DOCUSATE SODIUM 100MG CAPSULE PO SCH (08:09)
[2020-11-18] MEDS: CHLORTHALIDONE 25 MG TAB PO SCH (08:10)
[2020-11-18] MEDS: PERCOCET 5MG/325MG TAB PO PRN ×2 (08:10→13:19)
[2020-11-18] MEDS ORDERED: IBUPROFEN 800 MG TAB PO SCH (10:00)
== END 2020-11-18 13:44 | disposition home or self-care (01) ==
LOC: M SDC 06:04 → M PED 13:51 → M SDC 11-18 13:44
PROVIDERS: ATTEND Obstetrics & Gynecology
DX: N93.9 Abnormal uterine and vaginal bleeding, unspecified (principal); R10.2 Pelvic and perineal pain; N80.0 Endometriosis of uterus; D25.9 Leiomyoma of uterus, unspecified; I10 Essential (primary) hypertension; D64.9 Anemia, unspecified; Z79.899 Other long term (current) drug therapy; Z91.040 Latex allergy status; Z88.8 Allergy status to other drugs, medicaments and biological substances
CPT/HCPCS: 36415; 36600; 58571; 71045; 84703; 85027; 85384; 85610; 85730; 86850; 86900; 86901; 88307; 96374; 96375; 96376; J0131; J0690; J1170; J1885; J2250; J2405; J2765; J3010; Q9968; S2900

== ENCOUNTER 2020-11-29 18:36 | Emergency (ER) | payer OTHER, BC ==
[~2020-11-29] VITALS: Ht 170.2 cm; Wt 102.3 kg
[~2020-11-29 18:36] MED LIST changes: +DOK1CAP7 PO; +IBUP80TA PO; +PERCOCET PO
[2020-11-29] MEDS ORDERED: OXYC1TAB23 (18:59)
[2020-11-29] MEDS ORDERED: FERR325T20 (18:59)
[2020-11-29] MEDS ORDERED: KETOROLAC 30 MG/ML 1ML VIAL IV ONE (20:00)
[2020-11-29 20:28] LABS: BASO % 0.3 % (0.0-1.0); EOS # 0.1 10^3/uL (0.0-0.5); EOS % 1.9 % (0.0-3.0); HEMATOCRIT 34.7 % (36.0-47.0); HEMOGLOBIN 11.3 g/dl (12.0-15.5); LYMPH # 2.2 10^3/uL (1.5-5.0); MEAN CORPUSCULAR HEMOGLOBIN 30.1 pg (27.0-33.0); MEAN CORPUSCULAR HGB CONC 32.6 g/dl (32.0-36.5); MEAN CORPUSCULAR VOLUME 92.3 fl (80.0-96.0); MONO # 0.5 10^3/uL (0.0-0.8); MONO % 6.5 % (2.0-8.0); NEUTROPHILS # 4.1 10^3/uL (1.5-8.5); NEUTROPHILS % 59.2 % (36.0-66.0); PLATELET COUNT, AUTOMATED 326 10^3/uL (150-450); RED BLOOD COUNT 3.76 10^6/uL (4.00-5.40); WHITE BLOOD COUNT 6.9 10^3/uL (4.0-10.0)
[2020-11-29] MEDS ORDERED: ISOVUE-370 76% 100ML VIAL As Ordered ONE (20:46)
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
[2020-11-29 23:32] VITALS: BP 132/89
--- NOTE | 2020-12-02 09:20 | ED PDOC ---
Post-Departure Follow-Up radiology report faxed mynor fung Sarah MD Dec 02, 2020 09:20
== END 2020-11-29 23:38 | disposition home or self-care (01) ==
LOC: M ED 18:36
DX: Z04.1 Encounter for examination and observation following transport accident (principal); R07.9 Chest pain, unspecified; R10.9 Unspecified abdominal pain; V43.52XA Car driver injured in collision with other type car in traffic accident, initial encounter; Y92.9 Unspecified place or not applicable; Y93.9 Activity, unspecified; Y99.9 Unspecified external cause status; I10 Essential (primary) hypertension; Z90.710 Acquired absence of both cervix and uterus; N83.202 Unspecified ovarian cyst, left side; N20.0 Calculus of kidney; Z79.899 Other long term (current) drug therapy; Z88.8 Allergy status to other drugs, medicaments and biological substances; Z91.040 Latex allergy status
CPT/HCPCS: 71260; 74177; 80047; 85025; 96374; 99285; J1885; Q9967

== ENCOUNTER → 2020-12-03 | Outpatient (CLI) | payer OTHER, BC ==
[~2020-12-03] MED LIST changes: +FERR325T20; +OXYC1TAB23
--- NOTE | 2020-12-03 10:13 | REP ---
INDICATION: CERVICALGIA. COMPARISON: CT dated 09/07/2018 TECHNIQUE: AP, lateral, open mouth views of the cervical spine FINDINGS: Alignment and lordosis maintained without acute fracture/compression injury or subluxation. Moderate multilevel degenerative changes include endplate sclerosis, disc space narrowing and osteophytosis progressively increasing from the C3-4 level through the C6-7 and C7-T1 levels. IMPRESSION: Moderate early advanced progressive degenerative spondylosis <Electronically signed by Elvin March > 12/03/20 1010
== END ==
LOC: M WUC 09:31
PROVIDERS: ATTEND Physician Assistant
DX: M47.812 Spondylosis without myelopathy or radiculopathy, cervical region (principal); M47.893 Other spondylosis, cervicothoracic region

== ENCOUNTER 2021-03-18 07:57 | Emergency (ER) | payer BC ==
[~2021-03-18] VITALS: Ht 170.2 cm; Wt 108.0 kg
[~2021-03-18 07:57] MED LIST changes: +DOK1CAP4 PO; -DOK1CAP7 PO; +FERR325T19; -FERR325T20
[2021-03-18 10:36] LABS: ALBUMIN 3.2 GM/DL (3.2-5.2); ALT/SGPT 26 U/L (12-78); BILIRUBIN,DIRECT < 0.1 MG/DL (0.0-0.2); BILIRUBIN,TOTAL 0.5 MG/DL (0.2-1.0); LIPASE 104 U/L (73-393); TOTAL PROTEIN 7.5 GM/DL (6.4-8.2)
[2021-03-18 10:44] LABS: HEMATOCRIT 36.3 % (36.0-47.0); HEMOGLOBIN 11.6 g/dl (12.0-15.5); MEAN CORPUSCULAR HEMOGLOBIN 28.8 pg (27.0-33.0); MEAN CORPUSCULAR VOLUME 90.1 fl (80.0-96.0); PLATELET COUNT, AUTOMATED 288 10^3/uL (150-450); RED BLOOD COUNT 4.03 10^6/uL (4.00-5.40); WHITE BLOOD COUNT 6.3 10^3/uL (4.0-10.0)
--- NOTE | 2021-03-18 10:54 | REP ---
INDICATION: L flank pain, r/o stone COMPARISON: 11/29/2020. TECHNIQUE: CT Scan of the abdomen and pelvis was performed without intravenous contrast. Sagittal and coronal reconstruction images performed. FINDINGS: Lung bases: Unremarkable. There is a small hiatal hernia. Liver: There is diffuse fatty infiltration of the liver. Gallbladder: Unremarkable. Spleen: Grossly unremarkable. Adrenals: Normal. Pancreas: Grossly unremarkable.. Kidneys: There is no evidence of hydroureteronephrosis. There are ill-defined calcifications diffusely in the medullary pyramids of the kidneys suggesting medullary sponge kidneys. An intrarenal calculus within the lower pole the left kidney measures 3 mm in maximum diameter. Small and large bowel: Grossly unremarkable. Free fluid: There is mild free fluid in the pelvis. Abdominal aorta: No aneurysm. Adenopathy: None. Appendix: Not inflamed. Osseous structures: There are mild degenerative changes of the spine without compression deformity. Pelvis: No mass. Prior hysterectomy. No bladder calculus seen, the bladder is not well distended. There are small bilateral femoral hernias containing noninflamed fat. There are multiple phleboliths in the pelvis. IMPRESSION: No hydroureteronephrosis. 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 There is an intrarenal calculus in the lower pole the left kidney measuring 3 mm in diameter. Mild free fluid in the pelvis may be physiologic. Small femoral hernias contain noninflamed fat. Small hiatal hernia. <Electronically signed by Amador Dodge > 03/18/21 [id number]
[2021-03-18 11:23] LABS: ATYPICAL LYMPH 1 % (0-5); EOSINOPHILS 3 % (0-3); LYMPHOCYTES 34 % (16-44); MONOCYTES 2 % (0-5); NEUTROPHILS 60 % (28-66); PLATELET ESTIMATE NORMAL (NORMAL)
[2021-03-18] MEDS ORDERED: LIDOCAINE 5% (LIDODERM) PATCH TD ONE (11:35)
[2021-03-18] MEDS ORDERED: KETOROLAC 30 MG/ML 1ML VIAL IV ONE (11:35)
[2021-03-18] MEDS ORDERED: LIDO5DIS41 TOP (11:45)
[2021-03-18 11:47] VITALS: BP 138/85
[2021-03-18] MEDS ORDERED: IBUP80TA PO (11:50)
[2021-03-18] MEDS ORDERED: **NOTE PATIENT COMMENT** MISC XX SCH (21:00)
== END 2021-03-18 12:11 | disposition home or self-care (01) ==
LOC: M ED 07:57
DX: Q61.5 Medullary cystic kidney (principal); N20.0 Calculus of kidney; M54.9 Dorsalgia, unspecified; K41.31 Unilateral femoral hernia, with obstruction, without gangrene, recurrent; K44.9 Diaphragmatic hernia without obstruction or gangrene; R10.9 Unspecified abdominal pain; I10 Essential (primary) hypertension; F41.9 Anxiety disorder, unspecified; F31.89 Other bipolar disorder; Z98.61 Coronary angioplasty status; F17.200 Nicotine dependence, unspecified, uncomplicated; Z79.899 Other long term (current) drug therapy; Z88.8 Allergy status to other drugs, medicaments and biological substances; Z91.040 Latex allergy status
CPT/HCPCS: 74176; 80047; 80076; 81001; 83690; 84702; 85025; 87086; 87880; 99284; J1885

== ENCOUNTER 2021-06-30 17:57 | Emergency (ER) | payer BC ==
[~2021-06-30] VITALS: Ht 170.2 cm; Wt 104.0 kg
[~2021-06-30 17:57] MED LIST changes: +LIDO5DIS41 TOP
[2021-06-30] MEDS ORDERED: diphenhydrAMINE 50MG/ML VIAL (J1200) IV STA (18:38)
[2021-06-30] MEDS ORDERED: CHLORTHALIDONE 12.5MG PER 1/2 TABLET PO ONE (18:40)
[2021-06-30] MEDS ORDERED: KETOROLAC 30 MG/ML 1ML VIAL IV ONE (18:40)
[2021-06-30] MEDS ORDERED: METOCLOPRAMIDE INJ 10MG/2ML VIAL (J2765 PER 1) IV ONE (18:40)
[2021-06-30] MEDS ORDERED: NS 1,000 ML IV ONE (18:45)
[2021-06-30] MEDS ORDERED: PROPARACAINE 0.5% OPHTH SOL 15ML OD ONE (18:50)
[2021-06-30 19:47] LABS: BASO % 0.4 % (0.0-1.0); EOS # 0.2 10^3/uL (0.0-0.5); EOS % 3.6 % (0.0-3.0); HEMATOCRIT 38.3 % (36.0-47.0); HEMOGLOBIN 12.2 g/dl (12.0-15.5); LYMPH # 2.3 10^3/uL (1.5-5.0); LYMPH % 40.5 % (24.0-44.0); MEAN CORPUSCULAR HEMOGLOBIN 28.7 pg (27.0-33.0); MEAN CORPUSCULAR HGB CONC 31.9 g/dl (32.0-36.5); MEAN CORPUSCULAR VOLUME 90.1 fl (80.0-96.0); MONO # 0.4 10^3/uL (0.0-0.8); MONO % 7.1 % (2.0-8.0); NEUTROPHILS # 2.7 10^3/uL (1.5-8.5); NEUTROPHILS % 48.2 % (36.0-66.0); PLATELET COUNT, AUTOMATED 305 10^3/uL (150-450); RED BLOOD COUNT 4.25 10^6/uL (4.00-5.40); WHITE BLOOD COUNT 5.6 10^3/uL (4.0-10.0)
--- NOTE | 2021-06-30 19:49 | REPVR ---
PROCEDURE INFORMATION: Exam: CT Head Without Contrast Exam date and time: 06/30/2021 6:42 PM Age: 46 years old Clinical indication: Pain; Headache TECHNIQUE: Imaging protocol: Computed tomography of the head without contrast. Axial and coronal reformatted images were created and reviewed. Radiation optimization: All CT scans at this facility use at least one of these dose optimization techniques: automated exposure control; mA and/or kV adjustment per patient size (includes targeted exams where dose is matched to clinical indication); or iterative reconstruction. COMPARISON: CT Head without contrast 09/07/2018 10:10 PM FINDINGS: Brain: No CT evidence of acute intracranial hemorrhage or acute territorial infarction. No significant mass effect or midline shift. Basal cisterns patent. Cerebral ventricles: Normal in size and configuration. Paranasal sinuses: Unremarkable. No fluid levels. Mastoid air cells: Grossly unremarkable. Bones/joints: No acute osseous abnormality. Soft tissues: Grossly unremarkable. IMPRESSION: No CT evidence of acute intracranial pathology. Electronically signed by: Nicolas Villarreal On 06/30/2021 19:48:57 PM
--- NOTE | 2021-06-30 20:00 | REP ---
INDICATION: pain COMPARISON: None. TECHNIQUE: Dodge scale and color Doppler evaluation using linear high frequency transducer. FINDINGS: Ultrasound examination of the left lower extremity deep venous structures from the common femoral vein through the popliteal vein demonstrates normal compressibility flow and wave patterns in response to respiration and augmentation. There is no evidence for deep venous thrombosis. Contralateral CFV is patent and normal. IMPRESSION: No evidence for deep venous thrombosis. <Electronically signed by Elvin March > 06/30/211956
[2021-06-30 20:13] LABS: ALBUMIN 3.8 GM/DL (3.2-5.2); ALT/SGPT 19 U/L (12-78); BILIRUBIN,TOTAL 0.4 MG/DL (0.2-1.0); BLOOD UREA NITROGEN 9 MG/DL (7-18); CALCIUM LEVEL 9.4 MG/DL (8.5-10.1); CARBON DIOXIDE LEVEL 28 MEQ/L (21-32); CHLORIDE LEVEL 104 MEQ/L (98-107); GLOMERULAR FILTRATION RATE > 60.0 (>58); GLUCOSE, FASTING 95 MG/DL (70-100); POTASSIUM SERUM 4.1 MEQ/L (3.5-5.1); SODIUM LEVEL 136 MEQ/L (136-145); TOTAL PROTEIN 7.8 GM/DL (6.4-8.2)
[2021-06-30 20:23] LABS: CK-MB VALUE MASS < 1.0 NG/ML (<3.6); CPK CREATINE PHOSPHOKINASE 293 U/L (26-192); MB/CK RELATIVE INDEX 0.34 (< OR =4); TROPONIN I < 0.02 NG/ML (< 0.10)
[2021-06-30] MEDS ORDERED: ISOVUE-370 76% 100ML VIAL As Ordered ONE (20:29)
[2021-06-30 21:02] LABS: ERYTHROCYTE SEDIMENTATION RATE 34 mm/hr (0-20)
--- NOTE | 2021-06-30 21:10 | REPVR ---
PROCEDURE INFORMATION: Exam: CTA Chest With Contrast Exam date and time: 06/30/2021 8:36 PM Age: 46 years old Clinical indication: Pain; Chest pressure; Additional info: Chest discomfort, elevated d-dimer TECHNIQUE: Imaging protocol: Computed tomographic angiography of the chest with contrast. Axial, coronal and sagittal reformatted images were created and reviewed. 3D rendering (Not supervised by radiologist): MIP and/or 3D reconstructed images were created by the technologist. Radiation optimization: All CT scans at this facility use at least one of these dose optimization techniques: automated exposure control; mA and/or kV adjustment per patient size (includes targeted exams where dose is matched to clinical indication); or iterative reconstruction. Contrast material: ISOVUE 370; Contrast volume: 75 ml; Contrast route: INTRAVENOUS (IV); COMPARISON: CT ANGIO CHEST 04/20/2017 11:45 PM FINDINGS: Pulmonary arteries: Contrast opacification satisfactory. No intraluminal filling defect. Aorta: Unremarkable. No aneurysm or dissection. Lungs: Unremarkable. No consolidation. No mass. Pleural spaces: Unremarkable. No pneumothorax. No pleural effusion. Heart: Unremarkable. No cardiomegaly. No pericardial effusion. Lymph nodes: No pathologically enlarged lymph nodes. Diaphragm: Small hiatal hernia. Bones/joints: No acute osseous abnormality. Mild degenerative changes. Soft tissues: Unremarkable. IMPRESSION: 1. No CT evidence of pulmonary embolism. 2. Additional findings, as above. Electronically signed by: Nicolas Villarreal On 06/30/2021 21:09:25 PM
[2021-06-30 21:30] VITALS: BP 120/70
--- NOTE | 2021-07-02 08:01 | ECGEPIP ---
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
== END 2021-06-30 21:44 | disposition home or self-care (01) ==
LOC: M ED 17:57
DX: G43.909 Migraine, unspecified, not intractable, without status migrainosus (principal); I10 Essential (primary) hypertension; Z87.891 Personal history of nicotine dependence; Z79.899 Other long term (current) drug therapy; Z88.8 Allergy status to other drugs, medicaments and biological substances; Z91.040 Latex allergy status
CPT/HCPCS: 70450; 71275; 80053; 82550; 82553; 84484; 85025; 85379; 85652; 93005; 93971; 96361; 96374; 96375; 99284; J1200; J1885; J2765; Q9967

== ENCOUNTER 2021-07-27 10:20 | Emergency (ER) | payer BC ==
[~2021-07-27] VITALS: Ht 160 cm; Wt 112.0 kg
[2021-07-27 11:54] LABS: RSV AMPLIFICATION NEGATIVE (NEGATIVE)
[2021-07-27 12:04] LABS: AMPHETAMINES LEVEL URINE NEGATIVE (NEGATIVE); BARBITURATES URINE NEGATIVE (NEGATIVE); BENZODIAZEPINES URINE NEGATIVE (NEGATIVE); CANNABINOIDS URINE NEGATIVE (NEGATIVE); COCAINE METABOLITE URINE NEGATIVE (NEGATIVE); METHADONE URINE NEGATIVE (NEGATIVE); OPIATES URINE NEGATIVE (NEGATIVE); PHENCYCLIDINE URINE NEGATIVE (NEGATIVE)
[2021-07-27 12:27] LABS: ACETAMINOPHEN LEVEL < 2.0 UG/ML (10.0-30.0); ALBUMIN 3.4 GM/DL (3.2-5.2); ALT/SGPT 19 U/L (12-78); BILIRUBIN,DIRECT 0.1 MG/DL (0.0-0.2); BILIRUBIN,TOTAL 0.6 MG/DL (0.2-1.0); BLOOD UREA NITROGEN 7 MG/DL (7-18); CALCIUM LEVEL 8.7 MG/DL (8.5-10.1); CARBON DIOXIDE LEVEL 24 MEQ/L (21-32); CHLORIDE LEVEL 110 MEQ/L (98-107); CREATININE FOR GFR 0.92 MG/DL (0.55-1.30); ETHYL ALCOHOL (ETHANOL) < 0.003 % (0.000-0.010); GLOMERULAR FILTRATION RATE > 60.0 (>58); GLUCOSE, FASTING 98 MG/DL (70-100); POTASSIUM SERUM 4.7 MEQ/L (3.5-5.1); SALICYLATE LEVEL < 1.7 MG/DL (5.0-30.0); SODIUM LEVEL 139 MEQ/L (136-145); TOTAL PROTEIN 7.2 GM/DL (6.4-8.2)
--- NOTE | 2021-07-27 13:34 | MHIPNPDOC ---
[facility] Progress Note Progress Note DATE OF SERVICE: 07/27/21 Patient presented by [facility], does not meet criteria for involuntary admission, was on the phone with insurance and made vague SI statement "I'm checking out" in context of heated argument and anger. Per PSA report "Pt was speaking to a authorization representative at [facility] due to her car insurance being cancelled and allegedly stated," I was thinking of checking out today or this weekend" call was then dis connected. The authorization representative contacted police who then brought pt here for a MHE. Pt denies SI and HI upon arrival..." Last psychiatric admission was 2013 for self harm and possible bipolar II. Has been stable since, patient needs referral for outpatient appointment and safety plan. Patient denies SI, intent or plan, denies HI, intent or plan, no vasu, no psychosis, no depression, no anxiety. Feels safe to return home. Vital Signs Vital Signs Date Time Temp Pulse Resp B/P (MAP) Pulse Ox O2 Delivery O2 Flow Rate FiO2 07/27/21 10:26 98.6 88 18 153/86 (108) 100 Room Air Laboratory Data 24H Labs Laboratory Tests 2 07/27/21 11:05: Coronavirus (COVID-19)(PCR) NEGATIVE, Influenza Type A (RT-PCR) NEGATIVE, Influenza Type B (RT-PCR) NEGATIVE, Respiratory Syncytial Virus (PCR) NEGATIVE 07/27/21 11:08: Urine Opiates Screen NEGATIVE, Urine Methadone Screen NEGATIVE, Urine Barbiturates Screen NEGATIVE, Urine Phencyclidine Screen NEGATIVE, Urine Amphetamines Screen NEGATIVE, Urine Benzodiazepines Screen NEGATIVE, Urine Cocaine Metabolite Screen NEGATIVE, Urine Cannabinoids Screen NEGATIVE 07/27/21 11:34: Anion Gap 5L, Glomerular Filtration Rate > 60.0, Calcium Level 8.7, Total Bilirubin 0.6, Direct Bilirubin 0.1, Aspartate Amino Transf (AST/SGOT) 31, Alanine Aminotransferase (ALT/SGPT) 19, Alkaline Phosphatase 66, Total Protein 7.2, Albumin 3.4, Albumin/Globulin Ratio 0.9L, Thyroid Stimulating Hormone (TSH) 1.240, Salicylates Level < 1.7L, Acetaminophen Level < 2.0L, Ethyl Alcohol Level < 0.003 CBC/BMP Laboratory Tests 07/27/21 11:34 Allergies Coded Allergies: latex (Verified Allergy, Intermediate, rash, 4/7/21) escitalopram (Verified Adverse Reaction, Mild, "high for 2 weeks", 11/17/20) DENZEL PADGETT MD Jul 27, 2021 13:34
[2021-07-27 13:44] VITALS: BP 127/75
--- NOTE | 2021-07-27 21:29 | ECGEPIP ---
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
== END 2021-07-27 14:02 | disposition home or self-care (01) ==
LOC: M ED 10:20
DX: F32.9 Major depressive disorder, single episode, unspecified (principal); I10 Essential (primary) hypertension; Z79.899 Other long term (current) drug therapy; Z88.8 Allergy status to other drugs, medicaments and biological substances; Z91.040 Latex allergy status

== ENCOUNTER → 2021-09-16 | Outpatient (CLI) | payer BC | LOC: M WHC 09:00 | PROVIDERS: ATTEND Physician Assistant | DX: Z12.31 Encounter for screening mammogram for malignant neoplasm of breast (principal) ==

== ENCOUNTER → 2021-10-15 | Outpatient (CLI) | payer BC ==
[2021-10-15 10:32] LABS: HEMATOCRIT 35.9 % (36.0-47.0); HEMOGLOBIN 11.6 g/dl (12.0-15.5); MEAN CORPUSCULAR HGB CONC 32.3 g/dl (32.0-36.5); MEAN CORPUSCULAR VOLUME 89.8 fl (80.0-96.0); PLATELET COUNT, AUTOMATED 269 10^3/uL (150-450); WHITE BLOOD COUNT 5.5 10^3/uL (4.0-10.0)
[2021-10-15 11:03] LABS: ALBUMIN 3.1 GM/DL (3.2-5.2); ALT/SGPT 19 U/L (12-78); BILIRUBIN,TOTAL 0.5 MG/DL (0.2-1.0); BLOOD UREA NITROGEN 8 MG/DL (7-18); CALCIUM LEVEL 8.5 MG/DL (8.5-10.1); CARBON DIOXIDE LEVEL 26 MEQ/L (21-32); CHLORIDE LEVEL 106 MEQ/L (98-107); CHOLESTEROL LEVEL 172 MG/DL (<200); CHOLESTEROL RISK RATIO 3.909 (<5); CREATININE FOR GFR 0.85 MG/DL (0.55-1.30); GLOMERULAR FILTRATION RATE > 60.0 (>58); GLUCOSE, FASTING 90 MG/DL (70-100); HDL CHOLESTEROL 44 MG/DL (>40); LDL CHOLESTEROL 104 MG/DL (<100); MAGNESIUM LEVEL 1.8 MG/DL (1.8-2.4); NON-HDL-C 128 MG/DL; NT-PRO BNP 58 PG/ML (<125); POTASSIUM SERUM 4.2 MEQ/L (3.5-5.1); SODIUM LEVEL 139 MEQ/L (136-145); TOTAL PROTEIN 6.9 GM/DL (6.4-8.2); TRIGLYCERIDES LEVEL 118 MG/DL (<150)
== END ==
LOC: M LAB 09:39
PROVIDERS: ATTEND Physician Assistant
DX: R60.0 Localized edema (principal); Z13.220 Encounter for screening for lipoid disorders; I10 Essential (primary) hypertension

== ENCOUNTER → 2021-11-30 | Outpatient (CLI) | payer BC ==
[~2021-11-30] MED LIST changes: +METH-1164 PO
== END ==
LOC: M LABSMTC 10:47
PROVIDERS: ATTEND Anesthesiology
DX: Z20.822 Contact with and (suspected) exposure to COVID-19 (principal)

== ENCOUNTER 2021-12-05 06:20 | Day surgery (SDC) | payer BC ==
[~2021-12-05] VITALS: Ht 170.2 cm; Wt 111.1 kg
[~2021-12-05 06:20] MED LIST changes: +LIDOCAINE W/EPINEPHRINE 1% 20ML VIAL XX ONE; +SODIUM BICARBONATE 8.4% INJ 50MEQ 50 ML VIAL XX ONE
[2021-12-05] MEDS ORDERED: LIDOCAINE W/EPINEPHRINE 1% 20ML VIAL XX ONE (06:25)
[2021-12-05] MEDS ORDERED: SODIUM BICARBONATE 8.4% INJ 50MEQ 50 ML VIAL XX ONE (06:25)
[2021-12-05 08:10] VITALS: BP 166/89
[2021-12-05] MEDS ORDERED: TRAM50TA2 PO (08:14)
== END 2021-12-05 08:23 | disposition home or self-care (01) ==
LOC: M SDC 06:20
PROVIDERS: ATTEND Orthopaedic Surgery Hand Surgery
DX: M65.4 Radial styloid tenosynovitis [de Quervain] (principal)

== ENCOUNTER → 2022-02-14 | Outpatient (CLI) | payer BC ==
[~2022-02-14] MED LIST changes: -LIDOCAINE W/EPINEPHRINE 1% 20ML VIAL XX ONE; -SODIUM BICARBONATE 8.4% INJ 50MEQ 50 ML VIAL XX ONE; +TRAM50TA2 PO
== END ==
LOC: M WHC 12:52
PROVIDERS: ATTEND Surgery
DX: N63.20 Unspecified lump in the left breast, unspecified quadrant (principal)
CPT/HCPCS: 76641; 77065; G0279

== ENCOUNTER 2022-04-27 17:08 | Emergency (ER) | payer BC ==
[~2022-04-27] VITALS: Ht 170.2 cm; Wt 108.4 kg
[~2022-04-27 17:08] MED LIST changes: +FAMO20TA5; +TRAZ-252
[2022-04-27 17:09] VITALS: BP 170/90
== END 2022-04-27 19:15 | disposition home or self-care (01) ==
LOC: M ED 17:08
DX: M79.632 Pain in left forearm (principal); R07.82 Intercostal pain; W18.2XXA Fall in (into) shower or empty bathtub, initial encounter; Z91.040 Latex allergy status; Z88.8 Allergy status to other drugs, medicaments and biological substances; F17.200 Nicotine dependence, unspecified, uncomplicated

== ENCOUNTER 2022-05-13 19:34 | Emergency (ER) | payer BC ==
[~2022-05-13] VITALS: Ht 170.2 cm; Wt 104.5 kg
[2022-05-13] MEDS ORDERED: NAPR220C14 PO (19:43)
[2022-05-13 20:53] LABS: BASO % 0.1 % (0.0-1.0); EOS # 0.1 10^3/uL (0.0-0.5); EOS % 1.9 % (0.0-3.0); HEMATOCRIT 34.1 % (36.0-47.0); HEMOGLOBIN 11.1 g/dl (12.0-15.5); LYMPH # 1.9 10^3/uL (1.5-5.0); LYMPH % 26.1 % (24.0-44.0); MEAN CORPUSCULAR HEMOGLOBIN 29.4 pg (27.0-33.0); MEAN CORPUSCULAR HGB CONC 32.6 g/dl (32.0-36.5); MEAN CORPUSCULAR VOLUME 90.5 fl (80.0-96.0); MONO # 0.4 10^3/uL (0.0-0.8); MONO % 5.1 % (2.0-8.0); NEUTROPHILS # 4.9 10^3/uL (1.5-8.5); NEUTROPHILS % 66.4 % (36.0-66.0); PLATELET COUNT, AUTOMATED 295 10^3/uL (150-450); RED BLOOD COUNT 3.77 10^6/uL (4.00-5.40); WHITE BLOOD COUNT 7.4 10^3/uL (4.0-10.0)
[2022-05-13 21:23] LABS: ALBUMIN 3.9 GM/DL (3.2-5.2); ALT/SGPT 20 U/L (12-78); AMYLASE 74 U/L (25-115); BILIRUBIN,DIRECT 0.2 MG/DL (0.0-0.2); BILIRUBIN,TOTAL 0.5 MG/DL (0.2-1.0); BLOOD UREA NITROGEN 8 MG/DL (7-18); CALCIUM LEVEL 8.7 MG/DL (8.5-10.1); CARBON DIOXIDE LEVEL 25 MEQ/L (21-32); CHLORIDE LEVEL 107 MEQ/L (98-107); CREATININE FOR GFR 1.02 MG/DL (0.55-1.30); GLOMERULAR FILTRATION RATE > 60.0 (>58); GLUCOSE, FASTING 120 MG/DL (70-100); LIPASE 108 U/L (73-393); POTASSIUM SERUM 4.3 MEQ/L (3.5-5.1); SODIUM LEVEL 137 MEQ/L (136-145); TOTAL PROTEIN 7.4 GM/DL (6.4-8.2)
[2022-05-13] MEDS ORDERED: ONDANSETRON 4MG 2ML VIAL IV ONE (21:50)
[2022-05-13] MEDS ORDERED: cefTRIAXone SOD 1 GM in D5W MINI-BAG PLUS 50 ML IV ONE (21:50)
[2022-05-13] MEDS ORDERED: NS 1,000 ML IV ONE (21:50)
[2022-05-13 23:49] VITALS: BP 157/94
[2022-05-13] MEDS ORDERED: CEFD300C41 PO (23:50)
[2022-05-13] MEDS ORDERED: ONDA4TAB6 PO (23:50)
== END 2022-05-13 23:59 | disposition home or self-care (01) ==
LOC: M ED 19:34
DX: N10 Acute pyelonephritis (principal); N39.0 Urinary tract infection, site not specified; R11.0 Nausea; N13.30 Unspecified hydronephrosis; N20.0 Calculus of kidney; K59.00 Constipation, unspecified; Z88.8 Allergy status to other drugs, medicaments and biological substances; Z91.040 Latex allergy status; Z79.899 Other long term (current) drug therapy
CPT/HCPCS: 74176; 80053; 81000; 82150; 82248; 83605; 83690; 85025; 87086; 93041; 96365; 96375; 99284; J0696; J2405

== ENCOUNTER → 2022-08-24 | Outpatient (REF) | payer BC ==
[~2022-08-24] MED LIST changes: +CEFD300C41 PO; +NAPR220C14 PO; +ONDA4TAB6 PO
[2022-08-24 18:04] LABS: CHOLESTEROL RISK RATIO 3.94 (<5); HDL CHOLESTEROL 47.9 MG/DL (>40); LDL CHOLESTEROL 98.7 MG/DL (<100)
== END ==
LOC: M LAB REF 16:27
PROVIDERS: ATTEND Nurse Practitioner Family
DX: E78.5 Hyperlipidemia, unspecified (principal)

== ENCOUNTER → 2022-09-20 | Outpatient (REF) | payer BC | LOC: M SFHCWAGY 17:07 | PROVIDERS: ATTEND Obstetrics & Gynecology | DX: Z12.72 Encounter for screening for malignant neoplasm of vagina (principal); Z12.4 Encounter for screening for malignant neoplasm of cervix; R87.610 Atypical squamous cells of undetermined significance on cytologic smear of cervix (ASC-US) | CPT/HCPCS: 87624; G0123 ==

== ENCOUNTER → 2022-11-14 | Outpatient (REF) | payer BC | LOC: M SFHCWAGY 17:55 | PROVIDERS: ATTEND Obstetrics & Gynecology | DX: N89.3 Dysplasia of vagina, unspecified (principal) ==

== ENCOUNTER → 2022-11-16 | Outpatient (REF) | payer BC ==
[2022-11-16 17:38] LABS: BLOOD UREA NITROGEN 10 MG/DL (9-23); CALCIUM LEVEL 9.1 MG/DL (8.5-10.1); CARBON DIOXIDE LEVEL 29 MMOL/L (20-31); CHLORIDE LEVEL 102 MMOL/L (98-107); CHOLESTEROL LEVEL 197 MG/DL (<200); CHOLESTEROL RISK RATIO 4.21 (<5); CREATININE FOR GFR 0.85 MG/DL (0.55-1.30); GLOMERULAR FILTRATION RATE > 60.0 (>58); GLUCOSE, FASTING 93 MG/DL (60-100); HDL CHOLESTEROL 46.7 MG/DL (>40); LDL CHOLESTEROL 114.9 MG/DL (<100); NON-HDL-C 150.3 MG/DL; POTASSIUM SERUM 4.3 MMOL/L (3.5-5.1); SODIUM LEVEL 137 MMOL/L (136-145); TRIGLYCERIDES LEVEL 177 MG/DL (<150)
== END ==
LOC: M LAB REF 16:09
PROVIDERS: ATTEND Nurse Practitioner Family
DX: I10 Essential (primary) hypertension (principal); E78.5 Hyperlipidemia, unspecified

== ENCOUNTER → 2022-12-12 | Outpatient (REF) | payer BC ==
[2022-12-12 17:23] LABS: BLOOD UREA NITROGEN 12 MG/DL (9-23); CARBON DIOXIDE LEVEL 29 MMOL/L (20-31); CHLORIDE LEVEL 96 MMOL/L (98-107); CPK CREATINE PHOSPHOKINASE 600 U/L (34-145); CREATININE FOR GFR 0.88 MG/DL (0.55-1.30); GLOMERULAR FILTRATION RATE > 60.0 (>58); GLUCOSE, FASTING 98 MG/DL (60-100); MAGNESIUM LEVEL 1.7 MG/DL (1.8-2.4); POTASSIUM SERUM 3.7 MMOL/L (3.5-5.1); SODIUM LEVEL 133 MMOL/L (136-145)
== END ==
LOC: M LAB REF 16:12
PROVIDERS: ATTEND Pediatrics
DX: M79.10 Myalgia, unspecified site (principal)

== ENCOUNTER → 2023-01-25 | Outpatient (REF) | payer BC ==
[2023-01-25 18:29] LABS: BLOOD UREA NITROGEN 10 MG/DL (9-23); CALCIUM LEVEL 9.5 MG/DL (8.5-10.1); CARBON DIOXIDE LEVEL 26 MMOL/L (20-31); CHLORIDE LEVEL 107 MMOL/L (98-107); CPK CREATINE PHOSPHOKINASE 231 U/L (34-145); CREATININE FOR GFR 0.85 MG/DL (0.55-1.30); GLOMERULAR FILTRATION RATE > 60.0 (>58); GLUCOSE, FASTING 85 MG/DL (60-100); POTASSIUM SERUM 3.9 MMOL/L (3.5-5.1); SODIUM LEVEL 138 MMOL/L (136-145)
== END ==
LOC: M LAB REF 17:30
PROVIDERS: ATTEND Pediatrics
DX: I10 Essential (primary) hypertension (principal); T46.6X5D Adverse effect of antihyperlipidemic and antiarteriosclerotic drugs, subsequent encounter

== ENCOUNTER → 2023-03-12 | Outpatient (REF) | payer BC ==
[2023-03-12 17:14] LABS: ALBUMIN 3.6 G/DL (3.2-5.2); BILIRUBIN,DIRECT 0.2 MG/DL (<0.4); BILIRUBIN,TOTAL 0.5 MG/DL (0.3-1.2); TOTAL PROTEIN 6.9 G/DL (5.7-8.2)
== END ==
LOC: M LAB REF 16:14
PROVIDERS: ATTEND Pediatrics
DX: K76.9 Liver disease, unspecified (principal); R74.8 Abnormal levels of other serum enzymes

== ENCOUNTER → 2023-04-24 | Outpatient (REF) | payer BC | LOC: M LAB REF 16:20 | PROVIDERS: ATTEND Nurse Practitioner Family | DX: J02.9 Acute pharyngitis, unspecified (principal) ==

== ENCOUNTER → 2023-04-30 | Outpatient (CLI) | payer BC ==
[~2023-04-30] MED LIST changes: +PROHANCE 279.3MG/ML 15ML VIAL As Ordered ONE; +PROHANCE 279.3MG/ML 5ML VIAL As Ordered ONE
== END ==
LOC: M RAD 15:58
PROVIDERS: ATTEND Pediatrics
DX: K76.9 Liver disease, unspecified (principal)

== ENCOUNTER → 2023-07-11 | Outpatient (CLI) | payer BC ==
[~2023-07-11] MED LIST changes: -CEFD300C41 PO; +CEFD300C42 PO; -PROHANCE 279.3MG/ML 15ML VIAL As Ordered ONE; -PROHANCE 279.3MG/ML 5ML VIAL As Ordered ONE
== END ==
LOC: M WHC 08:35
PROVIDERS: ATTEND Pediatrics
DX: N64.4 Mastodynia (principal)

== ENCOUNTER → 2023-07-12 | Outpatient (CLI) | payer OTHER ==
[~2023-07-12] MED LIST changes: +CEFD1CAP9 PO; -CEFD300C42 PO
== END ==
LOC: M RAD 13:58
PROVIDERS: ATTEND Internal Medicine
DX: M79.605 Pain in left leg (principal); R22.42 Localized swelling, mass and lump, left lower limb

== ENCOUNTER → 2023-11-23 | Outpatient (REF) | payer BC ==
[2023-11-23 19:56] LABS: Trichomonas vaginalis (AMP) NOT DETECTED (NEGATIVE)
[2023-11-23 20:19] LABS: GC DNA AMPLIFICATION NEGATIVE (NEGATIVE)
== END ==
LOC: M SFHCWAGY 17:07
PROVIDERS: ATTEND Obstetrics & Gynecology
DX: Z12.72 Encounter for screening for malignant neoplasm of vagina (principal)
CPT/HCPCS: 87624; 87661; 87810; 87850; G0123

== ENCOUNTER → 2023-11-28 | Outpatient (CLI) | payer BC ==
[2023-11-28 18:57] LABS: HIV 1&2 SCREEN NEGATIVE (NEGATIVE)
[2023-11-28 19:05] LABS: HEPATITIS B CORE ANTIBODY IGM NEGATIVE (NEGATIVE)
[2023-11-28 19:06] LABS: HEPATITIS C VIRUS ABY INDEX 0.03 INDEX (<0.8)
== END ==
LOC: M PLALAB 15:03
PROVIDERS: ATTEND Obstetrics & Gynecology
DX: Z11.3 Encounter for screening for infections with a predominantly sexual mode of transmission (principal)

== ENCOUNTER 2023-12-04 10:24 | Emergency (ER) | payer BC ==
[~2023-12-04] VITALS: Ht 170.2 cm; Wt 105.4 kg
[2023-12-04] MEDS ORDERED: AMLO10TA PO (10:34)
[2023-12-04 11:24] LABS: HEMATOCRIT 37.7 % (36.0-47.0); HEMOGLOBIN 12.3 g/dl (12.0-15.5); LYMPH # 0.6 10^3/uL (1.5-5.0); LYMPH % 14.9 % (24.0-44.0); MEAN CORPUSCULAR HEMOGLOBIN 29.5 pg (27.0-33.0); MEAN CORPUSCULAR HGB CONC 32.6 g/dl (32.0-36.5); MEAN CORPUSCULAR VOLUME 90.4 fl (80.0-96.0); MONO # 0.3 10^3/uL (0.0-0.8); MONO % 8.5 % (2.0-8.0); NEUTROPHILS # 3.1 10^3/uL (1.5-8.5); NEUTROPHILS % 76.1 % (36.0-66.0); PLATELET COUNT, AUTOMATED 252 10^3/uL (150-450); RED BLOOD COUNT 4.17 10^6/uL (4.00-5.40)
[2023-12-04 11:51] LABS: LIPASE 26 U/L (12-53)
[2023-12-04 11:53] LABS: ALBUMIN 3.2 G/DL (3.2-5.2); ALKALINE PHOSPHATASE 60 U/L (46-116); ALT/SGPT 14 U/L (7.0-40); AST/SGOT 16 U/L (<34); BILIRUBIN,DIRECT 0.3 MG/DL (<0.4); BILIRUBIN,TOTAL 0.8 MG/DL (0.3-1.2); BLOOD UREA NITROGEN 11 MG/DL (9-23); CALCIUM LEVEL 8.6 MG/DL (8.5-10.1); CARBON DIOXIDE LEVEL 23 MMOL/L (20-31); CHLORIDE LEVEL 102 MMOL/L (98-107); CREATININE FOR GFR 0.83 MG/DL (0.55-1.30); GLOMERULAR FILTRATION RATE > 60.0 (>58); GLUCOSE, FASTING 100 MG/DL (60-100); POTASSIUM SERUM 3.8 MMOL/L (3.5-5.1); SODIUM LEVEL 133 MMOL/L (136-145); TOTAL PROTEIN 6.6 G/DL (5.7-8.2)
[2023-12-04] MEDS: KETOROLAC 30 MG/ML 1ML VIAL IV ONE (12:16)
[2023-12-04] MEDS: KETOROLAC 60MG 2ML VIAL IM ONE (13:07)
[2023-12-04 13:23] VITALS: BP 114/72; TEMP 98.6; O2SAT 100
== END 2023-12-04 13:28 | disposition home or self-care (01) ==
LOC: M ED 10:24
DX: R10.9 Unspecified abdominal pain (principal); R19.7 Diarrhea, unspecified; I10 Essential (primary) hypertension; Z88.8 Allergy status to other drugs, medicaments and biological substances; Z91.040 Latex allergy status; Z79.899 Other long term (current) drug therapy
CPT/HCPCS: 36415; 80048; 80076; 83690; 85025; 87486; 87581; 87633; 87798; 96372; 96374; 99284; J1885

== ENCOUNTER → 2023-12-09 | Outpatient (CLI) | payer BC ==
[~2023-12-09] MED LIST changes: +AMLO10TA PO
[2023-12-09 19:48] LABS: APPEARANCE, URINE MANUAL CLOUDY (CLEAR); COLOR, URINE MANUAL ORANGE (YELLOW)
[2023-12-09 19:50] LABS: BILIRUBIN, URINE MANUAL OBSCURED (NEGATIVE); BLOOD URINE MANUAL POSITIVE (NEGATIVE); GLUCOSE, URINE (UA) MANUAL NEGATIVE (NEGATIVE); KETONE, URINE MANUAL OBSCURED mg/dL (NEGATIVE); LEUKOCYTE ESTERASE, URINE MAN POSITIVE (NEGATIVE); NITRITE, URINE MANUAL POSITIVE (NEGATIVE); PROTEIN, URINE MANUAL OBSCURED mg/dL (NEGATIVE); SPECIFIC GRAVITY,URINE MANUAL 1.024 (1.002-1.035); UROBILINOGEN, URINE MANUAL OBSCURED mg/dl (NORMAL)
[2023-12-09 20:17] LABS: WBC, URINE TNTC /hpf (0-3)
[2023-12-09 20:18] LABS: CALCIUM OXALATE CRYSTALS,URINE SMALL AMOUNT /hpf; SQUAMOUS EPITHELIAL CELL URINE LARGE AMOUNT /hpf (SMALL AMT)
[2023-12-09 20:19] LABS: BACTERIA, URINE LARGE AMOUNT; HYALINE CAST, URINE NONE SEEN /lpf (0-1); MUCUS, URINE MOD AMOUNT (NEGATIVE)
== END ==
LOC: M LAB 09:55
PROVIDERS: ATTEND Physician Assistant Medical
DX: N39.0 Urinary tract infection, site not specified (principal)

== ENCOUNTER → 2024-05-26 | Outpatient (CLI) | payer BC ==
[~2024-05-26] MED LIST changes: +ONDA-282 PO; -ONDA4TAB6 PO
== END ==
LOC: M PLAIMG 12:43
PROVIDERS: ATTEND Pediatrics
DX: R07.89 Other chest pain (principal)

== ENCOUNTER → 2024-07-15 | Outpatient (REF) | payer BC ==
[2024-07-16 13:58] LABS: BASO % 0.1 % (0.0-1.0); EOS # 0.2 10^3/uL (0.0-0.5); EOS % 3.4 % (0.0-3.0); HEMATOCRIT 36.7 % (36.0-47.0); HEMOGLOBIN 11.2 g/dl (12.0-15.5); LYMPH # 2.4 10^3/uL (1.5-5.0); LYMPH % 35.6 % (24.0-44.0); MEAN CORPUSCULAR HEMOGLOBIN 28.4 pg (27.0-33.0); MEAN CORPUSCULAR HGB CONC 30.5 g/dl (32.0-36.5); MEAN CORPUSCULAR VOLUME 93.1 fl (80.0-96.0); MONO # 0.5 10^3/uL (0.0-0.8); MONO % 6.6 % (2.0-8.0); NEUTROPHILS # 3.7 10^3/uL (1.5-8.5); PLATELET COUNT, AUTOMATED 287 10^3/uL (150-450); RED BLOOD COUNT 3.94 10^6/uL (4.00-5.40); WHITE BLOOD COUNT 6.8 10^3/uL (4.0-10.0)
[2024-07-16 14:14] LABS: ERYTHROCYTE SEDIMENTATION RATE 26 mm/hr (0-30)
[2024-07-16 14:25] LABS: ALBUMIN 3.5 G/DL (3.2-5.2); ALKALINE PHOSPHATASE 64 U/L (35-104); ALT/SGPT 22 U/L (7.0-40); AST/SGOT 15 U/L (<34); BILIRUBIN,TOTAL 0.5 MG/DL (0.3-1.2); BLOOD UREA NITROGEN 10 MG/DL (9-23); C REACTIVE PROTEIN QUANTITATIV 1.17 MG/DL (<1.0); CALCIUM LEVEL 9.3 MG/DL (8.5-10.1); CARBON DIOXIDE LEVEL 25 MMOL/L (20-31); CHLORIDE LEVEL 106 MMOL/L (98-107); CREATININE FOR GFR 0.73 MG/DL (0.55-1.30); GLOMERULAR FILTRATION RATE > 60.0 (>51); GLUCOSE, FASTING 110 MG/DL (60-100); SODIUM LEVEL 138 MMOL/L (136-145); TOTAL PROTEIN 6.9 G/DL (5.7-8.2)
[2024-07-16 14:28] LABS: RHEUMATOID FACTOR QUANT < 3.5 IU/ML (<14)
== END ==
LOC: M LAB REF 12:54
PROVIDERS: ATTEND Pediatrics
DX: R76.8 Other specified abnormal immunological findings in serum (principal)

== ENCOUNTER 2024-09-02 16:42 | Emergency (ER) | payer BC ==
[2024-09-02 17:49] LABS: HEMATOCRIT 34.9 % (36.0-47.0); HEMOGLOBIN 11.5 g/dl (12.0-15.5); MEAN CORPUSCULAR VOLUME 88.1 fl (80.0-96.0); PLATELET COUNT, AUTOMATED 305 10^3/uL (150-450); RED BLOOD COUNT 3.96 10^6/uL (4.00-5.40); WHITE BLOOD COUNT 7.2 10^3/uL (4.0-10.0)
[2024-09-02 18:14] LABS: HCG, SERUM QUALITATIVE NEGATIVE (NEGATIVE)
[2024-09-02 18:15] LABS: ETHYL ALCOHOL (ETHANOL) 0.005 % (0.000-0.010)
[2024-09-02 18:17] LABS: ALBUMIN 3.7 G/DL (3.2-5.2); ALKALINE PHOSPHATASE 69 U/L (35-104); ALT/SGPT 22 U/L (7.0-40); AST/SGOT 25 U/L (<34); BILIRUBIN,DIRECT 0.1 MG/DL (<0.4); BILIRUBIN,TOTAL 0.5 MG/DL (0.3-1.2); BLOOD UREA NITROGEN 10 MG/DL (9-23); CALCIUM LEVEL 9.2 MG/DL (8.5-10.1); CARBON DIOXIDE LEVEL 23 MMOL/L (20-31); CHLORIDE LEVEL 108 MMOL/L (98-107); CREATININE FOR GFR 0.84 MG/DL (0.55-1.30); GLOMERULAR FILTRATION RATE > 60.0 (>51); GLUCOSE, FASTING 116 MG/DL (60-100); POTASSIUM SERUM 3.9 MMOL/L (3.5-5.1); SALICYLATE LEVEL < 3.0 MG/DL (<30); SODIUM LEVEL 141 MMOL/L (136-145); TOTAL PROTEIN 7.9 G/DL (5.7-8.2)
[2024-09-02 18:19] LABS: THYROID STIMULATING HORMONE 1.758 uIU/ML (0.55-4.78)
[2024-09-02 18:26] LABS: AMPHETAMINES LEVEL URINE NEGATIVE (NEGATIVE); BARBITURATES URINE NEGATIVE (NEGATIVE); BENZODIAZEPINES URINE NEGATIVE (NEGATIVE); CANNABINOIDS URINE NEGATIVE (NEGATIVE); COCAINE METABOLITE URINE NEGATIVE (NEGATIVE); METHADONE URINE NEGATIVE (NEGATIVE); OPIATES URINE NEGATIVE (NEGATIVE); PHENCYCLIDINE URINE NEGATIVE (NEGATIVE)
[2024-09-02 20:27] VITALS: BP 143/83; TEMP 96.9; O2SAT 100
== END 2024-09-02 20:38 | disposition home or self-care (01) ==
LOC: M ED 16:42
DX: Z04.6 Encounter for general psychiatric examination, requested by authority (principal); I10 Essential (primary) hypertension; D64.9 Anemia, unspecified; F31.9 Bipolar disorder, unspecified; Z87.891 Personal history of nicotine dependence; Z91.040 Latex allergy status; Z88.8 Allergy status to other drugs, medicaments and biological substances; Z79.899 Other long term (current) drug therapy

== ENCOUNTER → 2024-11-24 | Outpatient (CLI) | payer BC ==
[~2024-11-24] MED LIST changes: +AMLO-751 PO; -AMLO10TA PO
== END ==
LOC: M WHC 10:30
PROVIDERS: ATTEND Obstetrics & Gynecology
DX: Z12.31 Encounter for screening mammogram for malignant neoplasm of breast (principal); R92.323 Mammographic fibroglandular density, bilateral breasts

== ENCOUNTER → 2024-11-24 | Outpatient (REF) | payer BC ==
[~2024-11-24] MED LIST changes: -AMLO-751 PO; +AMLO10TA PO
[2024-11-24 15:14] LABS: Trichomonas vaginalis (AMP) NOT DETECTED (NEGATIVE)
[2024-11-24 15:38] LABS: GC DNA AMPLIFICATION NEGATIVE (NEGATIVE)
[2024-11-26 15:07] LABS: HPV APTIMA Detected (Not Detected)
== END ==
LOC: M SFHCWAGY 13:42
PROVIDERS: ATTEND Obstetrics & Gynecology
DX: Z12.31 Encounter for screening mammogram for malignant neoplasm of breast (principal); Z11.3 Encounter for screening for infections with a predominantly sexual mode of transmission; Z01.419 Encounter for gynecological examination (general) (routine) without abnormal findings; Z12.4 Encounter for screening for malignant neoplasm of cervix; Z77.9 Other contact with and (suspected) exposures hazardous to health

== ENCOUNTER 2024-12-30 09:08 | Emergency (ER) | payer BC, OTHER ==
[~2024-12-30] VITALS: Ht 170.2 cm; Wt 113.6 kg
[~2024-12-30 09:08] MED LIST changes: +AMLO-751 PO; -AMLO10TA PO; +LIDO1ADH93 TOP; -LIDO5DIS41 TOP
[2024-12-30] MEDS ORDERED: ERGO500029 (09:15)
[2024-12-30 10:07] LABS: BASO % 0.2 % (0.0-1.0); EOS # 0.2 10^3/uL (0.0-0.5); EOS % 3.9 % (0.0-3.0); HEMATOCRIT 34.6 % (36.0-47.0); HEMOGLOBIN 11.1 g/dl (12.0-15.5); LYMPH % 20.5 % (24.0-44.0); MEAN CORPUSCULAR HEMOGLOBIN 29.1 pg (27.0-33.0); MEAN CORPUSCULAR HGB CONC 32.1 g/dl (32.0-36.5); MEAN CORPUSCULAR VOLUME 90.8 fl (80.0-96.0); MONO # 0.4 10^3/uL (0.0-0.8); MONO % 8.9 % (2.0-8.0); NEUTROPHILS # 3.3 10^3/uL (1.5-8.5); NEUTROPHILS % 66.3 % (36.0-66.0); PLATELET COUNT, AUTOMATED 235 10^3/uL (150-450); RED BLOOD COUNT 3.81 10^6/uL (4.00-5.40); WHITE BLOOD COUNT 4.9 10^3/uL (4.0-10.0)
[2024-12-30 10:36] LABS: BLOOD UREA NITROGEN 9 MG/DL (9-23); CALCIUM LEVEL 8.7 MG/DL (8.5-10.1); CARBON DIOXIDE LEVEL 27 MMOL/L (20-31); CHLORIDE LEVEL 105 MMOL/L (98-107); CREATININE FOR GFR 0.84 MG/DL (0.55-1.30); GLOMERULAR FILTRATION RATE 84.6 (>51); GLUCOSE, FASTING 96 MG/DL (60-100); POTASSIUM SERUM 4.2 MMOL/L (3.5-5.1); SODIUM LEVEL 139 MMOL/L (136-145)
[2024-12-30] MEDS ORDERED: ISOVUE-370 76% 100ML VIAL As Ordered ONE (10:50)
[2024-12-30] MEDS ORDERED: IBUP200T46 PO (11:15)
[2024-12-30] MEDS ORDERED: D-101000 PO (11:15)
[2024-12-30] MEDS ORDERED: HOME MED LIST COMPLETE! XX SCH (11:20)
[2024-12-30] MEDS ORDERED: OSEL75CA PO (11:26)
[2024-12-30 11:45] VITALS: BP 174/94; TEMP 97.8; O2SAT 97
== END 2024-12-30 12:06 | disposition home or self-care (01) ==
LOC: M ED 09:08
DX: J10.1 Influenza due to other identified influenza virus with other respiratory manifestations (principal); I10 Essential (primary) hypertension; D64.9 Anemia, unspecified; Z87.891 Personal history of nicotine dependence; Z88.8 Allergy status to other drugs, medicaments and biological substances; Z91.040 Latex allergy status; Z79.1 Long term (current) use of non-steroidal anti-inflammatories (NSAID); Z79.899 Other long term (current) drug therapy
CPT/HCPCS: 36415; 71046; 71275; 80048; 84484; 85025; 87486; 87581; 87633; 87798; 93005; 93041; 94760; 99285; Q9967

== ENCOUNTER → 2025-03-04 | Outpatient (REF) | payer BC ==
[~2025-03-04] MED LIST changes: +D-101000 PO; +ERGO500029; +IBUP200T46 PO; +OSEL75CA PO
[2025-03-04 15:26] LABS: BASO # 0.0 10^3/uL (0.0-0.2); BASO % 0.4 % (0.0-1.0); EOS # 0.1 10^3/uL (0.0-0.5); EOS % 2.2 % (0.0-3.0); LYMPH # 2.4 10^3/uL (1.5-5.0); LYMPH % 43.8 % (24.0-44.0); MONO # 0.3 10^3/uL (0.0-0.8); MONO % 5.8 % (2.0-8.0); NEUTROPHILS # 2.6 10^3/uL (1.5-8.5); NEUTROPHILS % 47.4 % (36.0-66.0); PLATELET COUNT, AUTOMATED 310 10^3/uL (150-450)
[2025-03-04 16:32] LABS: ERYTHROCYTE SEDIMENTATION RATE 32 mm/hr (0-30)
== END ==
LOC: M LAB REF 14:21
PROVIDERS: ATTEND Pediatrics
DX: M46.1 Sacroiliitis, not elsewhere classified (principal)

== ENCOUNTER → 2025-03-10 | Outpatient (REF) | payer BC ==
[~2025-03-10] MED LIST changes: +PROZ10CA11 PO; -PROZ10CA7 PO
== END ==
LOC: M LAB REF 12:10
PROVIDERS: ATTEND Pediatrics
DX: R10.2 Pelvic and perineal pain (principal)

== ENCOUNTER 2025-07-29 15:17 | Emergency (ER) | payer OTHER, BC ==
[~2025-07-29] VITALS: Ht 170.2 cm; Wt 116.1 kg
[~2025-07-29 15:17] MED LIST changes: -IBUP1TAB6 PO; +SFHIBU600 PO
[2025-07-29 17:21] VITALS: BP 162/96
[2025-07-29] MEDS: IBUPROFEN 600 MG TAB PO ONE (17:37)
[2025-07-29] MEDS: METOCLOPRAMIDE 10 MG TAB PO ONE (17:37)
[2025-07-29] MEDS ORDERED: IBUP600T42 PO (18:00)
[2025-07-29] MEDS ORDERED: CYCL-707 PO (18:00)
[2025-07-29 18:08] VITALS: TEMP 97.9; O2SAT 98
== END 2025-07-29 18:09 | disposition home or self-care (01) ==
LOC: M ED 15:17
DX: S13.4XXA Sprain of ligaments of cervical spine, initial encounter (principal); R51.9 Headache, unspecified; Y92.019 Unspecified place in single-family (private) house as the place of occurrence of the external cause; Y93.9 Activity, unspecified; Y99.9 Unspecified external cause status; W01.10XA Fall on same level from slipping, tripping and stumbling with subsequent striking against unspecified object, initial encounter; Z88.8 Allergy status to other drugs, medicaments and biological substances; Z91.040 Latex allergy status; Z79.1 Long term (current) use of non-steroidal anti-inflammatories (NSAID); Z79.899 Other long term (current) drug therapy